=== PATIENT | male | born 1950 | race Caucasian/White ===

== ENCOUNTER 2020-01-31 20:00 | IRF | payer MEDICARE, SELFPAY ==
--- NOTE | ~2020-01-31 | XR_ITS ---
EXAMINATION: XR barium swallow modified EXAM DATE: 02/02/2020 10:07 INDICATION: Dysphagia. TECHNIQUE: Modified barium esophagram was performed by myself to administered fluoroscopy, in conjun ction with speech pathologist who administered barium in varying consistencies as per speech patholog ist documentation. This was recorded on tape. The DAP for this procedure was 1.4 Gycm2. FINDINGS: Oral stage: Adequate function. Pharyngeal phase: Adequate function. Laryngeal penetration: Shallow with liquids, injected. Aspiration: None. Laryngeal sensitivity: Present. IMPRESSION: Patient tolerated oral feedings in the upright position. Please refer to speech patholo gist findings and specific feeding recommendations. Reviewed, dictated and finalized at location A. IMPRESSION: Patient tolerated oral feedings in the upright position. Please r efer to speech pathologist findings and specific feeding recommendations.
--- NOTE | 2020-01-31 20:12 | ADMGEN ---
This patient, Sumit Ross, was admitted to [facility] Room 226-01 at 20:00. Patient/family oriented to hospital policies and general routines including ID bracelet, bed and alarms, visiting hours, pain management, procedures, bathroom and other care routines, personal items, smoking policy, room service/diet, and visiting hours. Valuables list has been completed. Information on how to activate the Rapid Response Team has been discussed. Patient/Family are encouraged to report perceived risks to care and to ask questions if they do not understand what they are told or what they should do.
[2020-01-31 20:44] VITALS: BP 123/70; PULSE 69; RESP 22; TEMP 35.7; O2SAT 98; BMI 34.4
[2020-01-31] MEDS: TAMSULOSIN HCL 0.4 MG CAPSULE 0.8 MG PO (23:00)
[2020-01-31] MEDS: HEPARIN SODIUM 5,000 UNITS/ML VIAL 5000 UNITS SUB-Q (23:00)
[2020-01-31] MEDS: ATORVASTATIN 40 MG TABLET PO (23:00)
[2020-01-31] MEDS: TOLNAFTATE 1% POWDER 45 GM BTL 1 APPLIC TOPICAL (23:50)
[2020-02-01 04:48] LABS: Basophils Absolute Auto 0.1 K/mm3 (0.0-0.1); Basophils Percent Auto 0.4 % (0.2-1.2); Eosinophils Absolute Auto 0.3 K/mm3 (0-0.3); Eosinophils Percent Auto 2.2 % (0-4.4); Hematocrit 35.9 % (42.0-52.0); Immature Granulocyte Absolute 0.11 K/mm3 (0.00-0.031); Immature Granulocyte Percent A 0.9 % (0-0.5); Lymphocytes Absolute Auto 1.56 K/mm3 (0.9-3.2); Lymphocytes Percent Auto 12.5 % (18.3-44.2); Mean Corpuscular HGB Conc 30.6 g/dl (32-36); Mean Corpuscular Hemoglobin 22.2 pg (26-34); Mean Corpuscular Volume 72.5 fl (80-100); Mean Platelet Volume 11.1 fl (7.4-10.4); Monocytes Absolute Auto 1.2 K/mm3 (0.1-0.6); Monocytes Percent Auto 9.8 % (2.6-8.5); Neutrophils Absolute Auto 9.3 K/mm3 (1.3-6.7); Neutrophils Percent Auto 74.2 % (45.5-73.1); Nucleated Red Blood Cells Perc 0.2 % (0.0-0.2); Platelet Count Result 178 k/mm3 (150-375); Red Blood Count 4.95 M/mm3 (4.6-6.20); Red Cell Distribution Width 18.1 % (11.5-14.5); White Blood Count 12.5 K/mm3 (4.5-10.0)
[2020-02-01 05:01] LABS: Anion Gap 11.7 mmol/L (7-16); Blood Urea Nitrogen 13 mg/dL (9-20); Calcium 8.6 mg/dL (8.4-10.2); Carbon Dioxide 27 mmol/L (22-30); Chloride 96 mmol/L (98-107); Cholesterol 121 mg/dL (0-200); Estimated CRCL calculation 113 ml/min; Estimated Glomerular Filt Rate > 60; Glucose 121 mg/dL (75-110); HDL Direct 35 mg/dL; Potassium 3.7 mmol/L (3.4-5.0); Sodium 131 mmol/L (137-145); Triglycerides 131 mg/dL (<150)
[2020-02-01 05:15] LABS: LDL Cholesterol Direct 58 mg/dL
[2020-02-01 05:16] LABS: Hemoglobin A1C 6.4 % (<5.7)
[2020-02-01] MEDS: HEPARIN SODIUM 5,000 UNITS/ML VIAL 5000 UNITS SUB-Q ×3 (05:46→20:33)
[2020-02-01 06:00] VITALS: BP 115/68; PULSE 78; RESP 18; TEMP 36.6; O2SAT 93
[2020-02-01 06:50] LABS: Glucose Point of Care 129 (65-105)
[2020-02-01 08:14] VITALS: BMI 11.0
[2020-02-01] MEDS: FUROSEMIDE 40 MG TABLET PO (09:24)
[2020-02-01] MEDS: LIDOCAINE 5% PATCH 1 PATCH TOPICAL (09:24)
[2020-02-01] MEDS: metFORMIN HCL 500 MG TABLET 1000 MG PO ×2 (09:24→17:15)
[2020-02-01 09:25] VITALS: PULSE 78
[2020-02-01] MEDS: TOLNAFTATE 1% POWDER 45 GM BTL 1 APPLIC TOPICAL ×2 (09:25→20:33)
[2020-02-01] MEDS: METOPROLOL SUCCINATE EXT REL 25 MG TABCR PO (09:25)
[2020-02-01] MEDS: ASPIRIN 81 MG CHEWABLE TABLET PO (09:25)
[2020-02-01 11:54] LABS: Glucose Point of Care 148 (65-105)
[2020-02-01 14:00] VITALS: BP 121/77; PULSE 58; RESP 20; TEMP 36.4; O2SAT 95
--- NOTE | 2020-02-01 14:00 | REHAB_ITS ---
DATE OF SERVICE: 02/01/2020 This 69-year-old right-handed male has been admitted to [facility] Rehab Floor on 01/31/2020. The patient was examined [id number] on 02/01/2020 at 11:30 a.m. PRIMARY REHAB IMPAIRMENT CATEGORY: Stroke. The etiological diagnosis is a large infarct in the right middle cerebral artery territory. HISTORY OF THE PRESENT ILLNESS: A 69 years old, right-handed male with past medical history of: 1. Hypertension. 2. Diabetes mellitus. Presented to [facility] on 01/27/2020 after being found down where the last known well was 01/26/2020 at 6 p.m. He was noted to have right gaze and left-sided weakness. NIHSS was 13. He was out of the window for tPA and did not get mechanical thrombectomy. CTA revealed right M1 cutoff and CTP revealed significant mismatch of around [address] of the head revealed an established large infarct in the right middle cerebral artery's territory. Neurology was consulted. The patient was started on atorvastatin and continued aspirin. Repeat NIHSS was 9. TTE was negative for thrombus and vegetation. Ejection fraction was only 30% to 35%. He was noted to have waxing and waning mental status with NIHSS score up to 24 and back down to 12 the next morning. The repeat CT scan revealed no changes from previous scan. His NIHSS at the time of screening was only 9. He was evaluated by EEG for seizures and exam was normal. He passed the swallowing study and was placed on the heart healthy consistent carbohydrate diet; however, he continued to require a mechanical soft diet with nectar thick liquid consistency. Speech therapy was recommended to improve speech and swallowing function. Physical examination continued to reveal left-sided weakness, right gaze, and decreased safety awareness, impaired balance, dysphagia and decreased gross motor control. The patient was mildly dysarthric. He was discharged to rehab on subcutaneous heparin for DVT prophylaxis. The patient had not traveled outside the [place] or had contact with someone who was ill. He has not traveled outside the [place] in the past 21 days. He has not traveled to an area of the [place] that is experiencing known transmission of the coronavirus, and has not had any close personal contact with anyone that has. He does not have a fever, does not experience any lower respiratory illness symptom. He was tested negative for COVID-19 on 01/28/2020. SURGERY OR FALLS: The patient has had no major surgery in the last 100 days prior to admission. The patient had falls in the past year, has had no fall with injury in the last year. PAST MEDICAL HISTORY: Includes hypertension, diabetes mellitus. PAST SURGICAL HISTORY: Noncontributory. SOCIAL HISTORY: The patient lives independently in a one-level home with 1 step to enter. He was completely independent previously with no assistive device. He is able to stay at his father's house following rehabilitation and his father and sister are available to assist him as needed. No alcohol or drug abuse and no smoker. FAMILY HISTORY: Noncontributory, the detail is not in the file. PRIOR LEVEL OF FUNCTION: He was independent in eating, oral care, toileting hygiene, shower, bathing, upper body, lower body dressing, footwear, rolling left and right, sit to lying, lying to sit, sit to stand, bed to chair transfer, toilet transfer, was independent 999 feet without assistive device. He was previously ambulating independently, was able to complete stairs independently. CURRENT LEVEL OF FUNCTION: Eating is setup or cleanup assistant credit manager. Oral care is partial moderate assistance. Toileting hygiene, partial moderate assistance. Shower bathing partial moderate assistance, upper body is partial moderate assistance. Lower body substantial maximal assi
[2020-02-01 16:59] LABS: Glucose Point of Care 129 (65-105)
[2020-02-01] MEDS: TAMSULOSIN HCL 0.4 MG CAPSULE 0.8 MG PO (20:33)
[2020-02-01] MEDS: ATORVASTATIN 40 MG TABLET PO (20:33)
[2020-02-01] MEDS: ACETAMINOPHEN 500 MG TABLET PO (20:34)
[2020-02-01 21:02] VITALS: BP 147/68; PULSE 53; RESP 20; TEMP 37.1; O2SAT 98
[2020-02-02 05:27] VITALS: BP 124/74; PULSE 75; RESP 20; TEMP 36.2; O2SAT 96
[2020-02-02] MEDS: HEPARIN SODIUM 5,000 UNITS/ML VIAL 5000 UNITS SUB-Q ×3 (05:34→20:07)
[2020-02-02 07:37] LABS: Glucose Point of Care 145 (65-105)
[2020-02-02] MEDS: metFORMIN HCL 500 MG TABLET 1000 MG PO ×2 (09:14→17:52)
[2020-02-02 09:15] VITALS: PULSE 75
[2020-02-02] MEDS: METOPROLOL SUCCINATE EXT REL 25 MG TABCR PO (09:15)
[2020-02-02] MEDS: LIDOCAINE 5% PATCH 1 PATCH TOPICAL (09:15)
[2020-02-02] MEDS: ASPIRIN 81 MG CHEWABLE TABLET PO (09:15)
[2020-02-02] MEDS: FUROSEMIDE 40 MG TABLET PO (09:15)
[2020-02-02] MEDS: TOLNAFTATE 1% POWDER 45 GM BTL 1 APPLIC TOPICAL ×2 (09:15→20:07)
--- NOTE | 2020-02-02 11:45 | PCOTNOTE ---
Patient completed tabletop visual scanning activity with multicolored blocks with occasional verbal cues to scan left and locate correct color (red vs. orange) x3 trials
[2020-02-02 12:00] LABS: Glucose Point of Care 148 (65-105)
[2020-02-02 14:00] VITALS: BP 122/66; PULSE 79; RESP 16; TEMP 36.2; O2SAT 98
[2020-02-02 16:55] LABS: Glucose Point of Care 123 (65-105)
[2020-02-02] MEDS: ACETAMINOPHEN 500 MG TABLET PO (17:55)
[2020-02-02] MEDS: TAMSULOSIN HCL 0.4 MG CAPSULE 0.8 MG PO (20:06)
[2020-02-02] MEDS: ATORVASTATIN 40 MG TABLET PO (20:06)
[2020-02-02 20:12] VITALS: BP 134/65; PULSE 69; RESP 18; TEMP 36.4; O2SAT 98
[2020-02-03] MEDS: HEPARIN SODIUM 5,000 UNITS/ML VIAL 5000 UNITS SUB-Q ×2 (05:43→13:30)
[2020-02-03 06:00] VITALS: BP 124/70; PULSE 57; RESP 20; TEMP 36.4; O2SAT 99
[2020-02-03 06:13] LABS: Glucose Point of Care 140 (65-105)
[2020-02-03 07:00] VITALS: BP 71/37; PULSE 130; RESP 30; O2SAT 100
[2020-02-03 08:27] VITALS: PULSE 69
[2020-02-03] MEDS: METOPROLOL SUCCINATE EXT REL 25 MG TABCR PO (08:27)
[2020-02-03] MEDS: ASPIRIN 81 MG CHEWABLE TABLET PO (08:27)
[2020-02-03] MEDS: metFORMIN HCL 500 MG TABLET 1000 MG PO (08:27)
[2020-02-03] MEDS: LIDOCAINE 5% PATCH 1 PATCH TOPICAL (08:27)
[2020-02-03] MEDS: FUROSEMIDE 40 MG TABLET PO (08:27)
[2020-02-03] MEDS: TOLNAFTATE 1% POWDER 45 GM BTL 1 APPLIC TOPICAL (08:29)
--- NOTE | 2020-02-03 10:23 | RPD ---
INDIVIDUALIZED PLAN OF CARE FOR Sumit Ross Brief Synthesis of Pre-Admission Screen, Post-Admission Evaluation and Therapy Evaluations: The patient presents to rehab with large infarct in the right MCA territory. Comorbidities include hypertension, diabetes mellitus type 2, heart failure with reduced ejection fraction, dysarthria, left-sided weakness, leukocytosis, and right putamen bleed. The patient?s needs will be best met in an intensive program vs. at a lower level of care. The patient requires physician services for neurology services, medical oversight, and coordination of care. The patient needs physician monitoring and treatment of hypertension, monitoring for adverse reactions to new medications, monitoring of infection, and pain control. The patient requires nursing services for frequent neuro checks, anticoagulation therapy, medication management and education, pressure relief and skin care management, monitoring of labs, bowel and bladder training, diabetes management and education, and fall/safety precautions. Deficits include:ADLs, Balance, Endurance, Family Training/Education, Mobility, Pain Management, ROM, Safety, Speech, Strength, Swallowing, and Transfers. Program Admin/Case Management for: Discharge Planning and Patient/Family Counseling Physical Therapy: 5 days per week for 60 minutes. Treatments may include: Therapeutic Exercise, Gait Training, Neuromuscular Re-education, Transfer Training, Community Reintegration, Bed Mobility, Patient/Family Education, Wheelchair Mobility Group Therapy/Concurrent Therapy Rationales: -Improve attention span during functional activities in a distracted environment. -Enhance problem solving and/or adequate judgment skills during functional activities in a distracted environment. -Promote increased safety awareness in a distracted environment to reduce fall risk with functional tasks, transfers, and ambulation to allow a more safe, self-sufficient return to the home environment. -Improve dynamic balance skills to promote safety and independence with functional activities in a distracted environment for maximum gain. Occupational Therapy: 5 days per week for 60 minutes. Treatments may include: Therapeutic Exercise, Therapeutic Activity, Cognitive Training, Self-Care Transfer Training, Community Reintegration, Home Management, Patient/Family Education, Wheelchair Mobility Training, Energy Conservation Training Group Therapy/Concurrent Therapy Rationales: -Allow therapist to observe and teach generalization and carry-over of skills learned in individual therapy. -Enhance problem solving and sequencing skills during therapeutic activities in a distracted environment. -Promote increased safety awareness in a realistic setting to reduce fall risk with functional tasks due to visual and verbal distractions. -Increase functional level with ADLs, ADL transfers and use of adaptive equipment through therapeutic activities with others while promoting safety to allow a more safe, self-sufficient return home. Speech Therapy: 5 days per week for 60 minutes. Treatments may include: Dysphasia Therapy, Speech/Language/Communication Therapy, Cognitive Training, Patient/Family Education Group Therapy/Concurrent Therapy - Rationale: -Allow therapist to observe and teach generalization and carry-over of skills learned in individual therapy. -Improve comprehension skills with complex or abstract ideas through discussion in a realistic setting. -Enhance problem solving skills with complex issues during activities in a distracted environment. -Promote increased memory skills and concentration in a distracted environment for a safe transition home. -Improve attention and focus with language/communication skills in a realistic and supportive therapeutic setting. -Allow for practice of expression of basic needs and ideas through functional activities with others. Medical Prognosis: Good Anticipated Length of Stay: 14 days Rehab Go
[2020-02-03] MEDS: ACETAMINOPHEN 500 MG TABLET PO (11:31)
[2020-02-03 11:51] LABS: Glucose Point of Care 134 (65-105)
--- NOTE | 2020-02-03 12:12 | WPDNEURORHBP ---
Subjective Date/time seen: 0 seen on 02/02/20 documentin today Review of Systems Review of Systems: All systems reviewed & are unremarkable except as noted in HPI and below Functional Status Ambulation Ability Ability to Ambulate 10 Feet: Moderate Assistance X 1 Ambulation Assistive Devices: Cane, Ever and Parallel Bars Exam Const: General: cooperative, healthy appearing, comfortable and no acute distress Nutritional Appearance: obese Orientation/consciousness: oriented to person, oriented to place, oriented to time and patient oriented x3 Eyes: General: appearance normal, both eyes and all related structures Eyelids: eyelids normal Conjunctivae: conjunctivae normal Sclera: sclerae normal Cornea: corneas normal Pupils: Equal, round and reactive pupils present EOM: EOM abnormal Direct Ophthalmoscopy: normal light reflex Neck: Neck: full ROM and no lymphadenopathy Resp: Effort & Inspection: able to speak in complete sentences Cardio: Rate: regular rate GI: Auscultation: normal bowel sounds Back/Spine/Pelvis: Back: no CVA tenderness Skin: General skin exam: no rashes or lesions noted Neuro: General: patient oriented x3 and moves all extremities Cranial nerves: Yes Equal, round and reactive pupils present, Yes Bilaterally intact EOM present, Yes Nystagmus not present, Yes Symmetric palate elevation present, Yes Normal hearing present, Yes Ability to bilaterally rotate head present and Yes Ability to bilaterally elevate shoulders present Cognition (Neuro): normal cognition Speech: normal speech Gait exam (Neuro): Assisted gait required Motor exam (neuro): Abnormal motor strength present (left hemiparesis) Sensory Exam: Sensory deficit (Neuro) Extrem: General: full ROM Psych: Appearance: grossly normal Objective Data Vital Signs Vital Signs: Vital Signs - 24 hr 02/02/20 14:00 02/02/20 20:12 02/03/20 06:00 Temperature 36.2 C L 36.4 C 36.4 C Pulse Rate 79 69 57 L Respiratory Rate 16 18 20 Blood Pressure 122/66 134/65 124/70 Pulse Oximetry 98 98 99 02/03/20 08:27 Temperature Pulse Rate 69 Respiratory Rate Blood Pressure Pulse Oximetry Intake/Output Intake/Output: Intake & Output 01/31/20 02/01/20 02/02/20 02/03/20 23:59 23:59 23:59 23:59 Intake Total 600 720 240 Balance 600 720 240 Meds/Results Medications: Active Medications Generic Name Dose Route Start Last Admin Trade Name Freq PRN Reason Stop Dose Admin Acetaminophen 500 mg 01/31/20 21:38 02/03/20 11:31 Tylenol Tablet PO 500 mg Q4H PRN Administration Mild Pain (1-3) or Fever Aspirin 81 mg 02/01/20 09:00 02/03/20 08:27 Aspirin Chewable PO 81 mg DAILY NADYA Administration Atorvastatin Calcium 40 mg 01/31/20 21:00 02/02/20 20:06 Lipitor PO 40 mg HS NADYA Administration Dextrose 12.5 gm 01/31/20 21:20 Dextrose 50% Syringe IV PUSH PRN PRN Hypoglycemia Protocol Furosemide 40 mg 02/01/20 09:00 02/03/20 08:27 Lasix Tablet PO 40 mg DAILY NADYA Administration Glucagon 1 mg 01/31/20 21:20 Glucagon For Inj IM PRN PRN Hypoglycemia Protocol Glucose 15 gm 01/31/20 21:20 Glutose 15 PO PRN PRN Hypoglycemia Protocol Heparin Sodium (Porcine) 5,000 units 01/31/20 22:00 02/03/20 05:43 Heparin Sodium SUB-Q 5,000 units Q8HR NADYA Administration Dextrose 1,000 mls @ 100 mls/hr 01/31/20 21:20 Dextrose 5% 1,000 Ml IVPB PRN PRN Hypoglycemia Protocol Insulin Aspart 4 - 8 units 02/01/20 08:00 02/03/20 11:35 Novolog SUB-Q Not Given TIDWM NADYA Protocol Lidocaine 1 patch 02/01/20 09:00 02/03/20 08:27 Lidoderm TOPICAL 1 patch DAILY NADYA Administration Metformin HCl 1,000 mg 02/01/20 08:00 02/03/20 08:27 Glucophage PO 1,000 mg BIDWM NADYA Administration Metoprolol Succinate 25 mg 02/01/20 09:00 02/03/20 08:27 Toprol Xl PO 25 mg DAILY NADYA Administration
[2020-02-03 14:00] VITALS: BP 139/80; PULSE 92; RESP 20; TEMP 35.9; O2SAT 97
--- NOTE | 2020-02-03 15:21 | PCNSR ---
On 02/03/20, the student,Charles Carlos, provided care and completed [facility] [employer] [facility] documentation on this patient. I have reviewed the student's documentation and agree with the findings.
--- NOTE | 2020-02-03 16:48 | ECG_ITS ---
Measurements Intervals [place] Rate: 129 P: AL: 0 QRS: -24 QRSD: 95 T: 97 QT: 322 QTc: 472 Interpretive Statements ATRIAL FIBRILLATION WITH RAPID VENTRICULAR RESPONSE VENTRICULAR PREMATURE COMPLEXES INCOMPLETE RIGHT BUNDLE BRANCH BLOCK DELAYED PRECORDIAL R/S TRANSITION NONSPECIFIC ST & T-WAVE ABNORMALITY- HIGH LATERAL LEADS BASELINE WANDER- AVL, V4-V6 ABNORMAL ECG Electronically Signed On 02-03-2020 17:19:02 CDT by Juan Luis Merino D.O.
[2020-02-03 17:04] LABS: Glucose Point of Care 237 (65-105)
--- NOTE | 2020-02-03 17:28 | PC.NURSE ---
At 1700, pt began c/o SOB, mid sternal chest pain, B/P 78/60 (manual) P78 irregular 95% O2.Rapid Response was called, team arrived to unit, EKG was done-pt with A-FIB/ RVR Rec'd order from Dr. Huang for transfer to ICU, taken to icu unit at 1715
--- NOTE | 2020-02-18 11:58 | PM.TDS ---
Transfer Discharge Sum: Prov Provider Date of admission: 01/31/20 20:00 Primary care physician: Bryan Barboza, DO Admitting clinician: Levar Huang MD DS: Admitting Diagnosis Admitting Diagnosis Admitting Diagnosis: CVA RIGHT MCA DS: Discharge Diagnosis Discharge Diagnosis (1) Diarrhea: Code(s): R19.7 - Diarrhea, unspecified Status: Acute (2) Elevated white blood cell count: Code(s): D72.829 - Elevated white blood cell count, unspecified Status: Acute (3) PVCs (premature ventricular contractions): Code(s): I49.3 - Ventricular premature depolarization Status: Acute (4) Left hemiparesis: Code(s): G81.94 - Hemiplegia, unspecified affecting left nondominant side Status: Acute (5) Elevated LFTs: Code(s): R79.89 - Other specified abnormal findings of blood chemistry Status: Acute (6) Ischemic optic neuropathy: Code(s): H47.019 - Ischemic optic neuropathy, unspecified eye Status: Acute (7) Atrial fibrillation with RVR: Code(s): I48.91 - Unspecified atrial fibrillation Status: Resolved (8) Atrial fibrillation: Code(s): I48.91 - Unspecified atrial fibrillation Status: Acute (9) BPH (benign prostatic hyperplasia): Code(s): N40.0 - Benign prostatic hyperplasia without lower urinary tract symptoms Status: Chronic (10) Systolic congestive heart failure: Code(s): I50.20 - Unspecified systolic (congestive) heart failure Status: Chronic (11) Hyperlipidemia: Code(s): E78.5 - Hyperlipidemia, unspecified Status: Chronic (12) Cerebrovascular accident (CVA) involving right cerebral hemisphere: Code(s): I63.9 - Cerebral infarction, unspecified Status: Chronic (13) Diabetes mellitus: Code(s): E11.9 - Type 2 diabetes mellitus without complications Status: Chronic (14) Hypertension: Code(s): I10 - Essential (primary) hypertension Status: Chronic Transfer Discharge Sum: Med Medications Active and Home Medications: Home Medications atorvastatin 40 mg PO HS 01/31/20 [History Confirmed 02/03/20] furosemide 40 mg PO DAILY 01/31/20 [History Confirmed 02/03/20] tamsulosin 0.8 mg PO HS 01/31/20 [History Confirmed 02/03/20] amiodarone [Pacerone] 200 mg PO DAILY@0800 #30 tablet 02/10/20 [Rx] apixaban [Eliquis] 5 mg PO Q12HR #60 tablet 02/10/20 [Rx] lisinopril 5 mg PO QAM #30 tablet 02/10/20 [Rx] metoprolol tartrate 50 mg PO Q12HR #60 tablet 02/10/20 [Rx] potassium chloride 20 meq PO DIRECTED #32 each 02/10/20 [Rx] alprazolam 0.25 mg PO HS PRN #30 tablet 02/12/20 [Rx] loperamide [Imodium A-D] 2 mg PO Q6H PRN #10 cap 02/12/20 [Rx] metformin 1,000 mg PO BID #60 tablet 02/12/20 [Rx Confirmed 02/03/20] tamsulosin 0.8 mg PO HS #60 cap 02/12/20 [Rx] Transfer Discharge Sum: Hosp Hospital Course Hospital course: Sumit Ross is a 69 year old male Who was admitted to the acute rehab after having had the CVA with the above-mentioned comorbidities however because of change in his cardiovascular status and particularly atrial fibrillation with rapid ventricular response he had to be transferred to the intensive care unit Time Spent with Patient Time attestation: Total time spent providing and/or coordinating transfer services: Exam Const: General: comfortable and no acute distress HENMT: General nose exam: Normal nares present Mouth: Yes moist mucous membranes Eyes: General: appearance normal, both eyes and all related structures Neck: Neck: supple and no JVD Resp: Other: decreased breath sounds bilateral Cardio: Other: atrial fibrillation with rapid ventricular response GI: GI Palp: Yes Soft to palpation Auscultation: normal bowel sounds Skin: General skin exam: normal color and no rashes or lesions noted Neuro: Other: relatively fatigued entire with left-sided hemiparesis Extrem: General: normal to inspection Psych: Mental Statu
== END 2020-02-03 17:00 | disposition short-term general hospital (02) | DRG 57 ==
PROVIDERS: Admitting Provider Psychiatry & Neurology Neurology; PCP Family Medicine; Visit Provider Psychiatry & Neurology Neurology
DX: I69.354 Hemiplegia and hemiparesis following cerebral infarction affecting left non-dominant side (principal); I50.20 Unspecified systolic (congestive) heart failure; I48.91 Unspecified atrial fibrillation; R13.10 Dysphagia, unspecified; I69.391 Dysphagia following cerebral infarction; I69.322 Dysarthria following cerebral infarction; I69.398 Other sequelae of cerebral infarction; H51.8 Other specified disorders of binocular movement; H47.019 Ischemic optic neuropathy, unspecified eye; D72.829 Elevated white blood cell count, unspecified; E78.5 Hyperlipidemia, unspecified; E11.9 Type 2 diabetes mellitus without complications; I49.3 Ventricular premature depolarization; I11.0 Hypertensive heart disease with heart failure; N40.0 Benign prostatic hyperplasia without lower urinary tract symptoms; R19.7 Diarrhea, unspecified; R79.89 Other specified abnormal findings of blood chemistry; Z79.82 Long term (current) use of aspirin; Z79.84 Long term (current) use of oral hypoglycemic drugs
CPT/HCPCS: 36415; 80048; 80061; 83036; 85025; 92507; 92523; 92610; 92611; 93005; 97110; 97116; 97162; 97166; 97530; 97535; 97542; A9270; J1644

== ENCOUNTER 2020-02-03 17:01 | Inpatient (IN) | payer MEDICARE, SELFPAY ==
[2020-02-03] VITALS (9 sets, daily range): BP systolic 101–135; BP diastolic 69–109; PULSE 124–147; RESP 24–32; TEMP 36.9; O2SAT 96–100; BMI 34.0
--- NOTE | ~2020-02-03 | CT_ITS ---
EXAMINATION: CTA brain EXAM DATE: 02/03/2020 18:57 INDICATION: Recent stroke. Atrial fibrillation. TECHNIQUE: Noncontrast head CT. Spiral CT angiogram cerebral arteries performed with intravenous in jection of 100 mL Omnipaque 350. Axial, coronal and sagittal images reviewed. Additional reformatted images created on dedicated 3-D workstation. The dose-length product (DLP) for this examination was 1229.12 mGy-cm. The exposure was tailored according to patient size, and iterative reconstruction (ASIR) was used as additional dose reduction technique. There is no prior study for comparison. FINDINGS: The carotid siphons are normal bilaterally, no proximal stenosis. Symmetric bilateral but diminutive vertebral arteries, with bilateral posterior communicating artery dominant posterior cereb ral arteries. There is no distal carotid or vertebral basilar arterial dissection or fibromuscular d ysplasia. There are no cerebral artery aneurysms. There is symmetric cerebral artery arborization. Th e sagittal, transverse and sigmoid sinuses enhance normally, no venous sinus thrombosis. Internal cer ebral veins also enhance normally. Moderate-sized region of decreased attenuation within the right temporal lobe, could be subacute infa rction correlating with history provided. There is mild atrophy and microangiopathy. There is no acut e intraparenchymal hemorrhage. No evidence of intraparenchymal brain mass lesion There is no mass ef fect or midline shift. There is no obstructive hydrocephalus suspected. There are no extra-axial col lections. There are no calvarial acute fractures. There are no areas of abnormal enhancement on the post contrast images. IMPRESSION: 1. Right temporal hypodensity likely moderate-sized subacute infarction. 2. Mild age-related intracranial findings. 3. Unremarkable intracranial arteries. Reviewed, dictated and finalized at location A.
--- NOTE | ~2020-02-03 | XR_ITS ---
EXAMINATION: XR chest 2V EXAM DATE: 02/03/2020 19:06 INDICATION: Shortness of breath. Unable to lift left arm. TECHNIQUE: Frontal AP and lateral projections of the chest obtained and reviewed. Lateral projection limited due to patient's arms overlying chest. There is no prior study for comparison. FINDINGS: The lungs are clear. There are no pleural effusions. Cardiomediastinal silhouette is norm al. There is no pneumothorax suspected. The bones and soft tissues are unremarkable. IMPRESSION: No acute cardiopulmonary findings. Reviewed, dictated and finalized at location A.
--- NOTE | ~2020-02-03 | XR_ITS ---
EXAMINATION: XR chest 2V DATE: 02/11/2020 13:10 INDICATION: Leukocytosis. Atrial fibrillation. TECHNIQUE: Frontal and lateral views of the chest were obtained. COMPARISON: Chest 2 views 02/03/2020 FINDINGS: The chest demonstrates clear lungs without pneumonia, pleural effusion, or pneumothorax. Th e heart size is normal. IMPRESSION: 1. No acute cardiopulmonary disease. Reviewed, dictated and finalized at location B.
--- NOTE | ~2020-02-03 | US_ITS ---
EXAMINATION: US right upper quadrant DATE: 02/04/2020 09:06 INDICATION: Elevated liver function tests TECHNIQUE: Multiple grayscale and Doppler ultrasound images of the abdomen were obtained. COMPARISON: None available FINDINGS: The head and and body of the pancreas are normal. The pancreatic tail is obscured by bowel gas. The liver is normal with normal echogenicity and echotexture. No surface nodularity. Normal hepa topetal flow in the main portal vein. The gallbladder is surgically absent. The normal common bile du ct measures 3 mm. IMPRESSION: 1. No sonographic correlate for the patient's symptoms. Reviewed, dictated and finalized at location A.
--- NOTE | 2020-02-03 18:08 | ADMGEN ---
This patient, Sumit Ross, was admitted to Intensive Care Unit-8 from [facility] room 226 as a rapid response. Patient/family oriented to hospital policies and general routines including ID bracelet, bed and alarms, visiting hours, pain management, procedures, bathroom and other care routines, personal items, smoking policy, room service/diet, and visiting hours. Valuables list has been completed. Information on how to activate the Rapid Response Team has been discussed. Patient/Family are encouraged to report perceived risks to care and to ask questions if they do not understand what they are told or what they should do.
--- NOTE | 2020-02-03 19:28 | PM.IMHP ---
H&P: HPI History of Present Illness Date/Time: 02/03/20 19:28 Chief complaint: AFib with RVR Narrative: Sumit Ross is a 69 year old male who was a patient at [facility]. This is a right handed male patient was admitted to [facility] rehab floor on 01/31/2020. The patient presented to [facility] on 01/27/2020 you was found to be down his last known normal was 01/26/2020 at 6:00 p.m.. The patient was noted to have a right gaze in the left-sided weakness. He also has a left facial droop. He was out of the window for tPA and did not get any mechanical thrombectomy. CTA revealed a right M1 cutoff and CT P revealed significant mismatch of around [address] of the head revealed and establish large right infarct of the right middle cerebral arteries to territory. Neurology was consulted. The patient was started on atorvastatin and aspirin. Patient had a NEY within the EF of 30-35%. Patient has a mild facial droop with some mild speech impediment. Patient required a mechanical soft diet with nectar thick liquid consistency. He did pass his swallow study. He was evaluated by EEG for seizures and it was normal. Speech therapy was recommended to improve speech and swallow function. Patient was discharged from [facility] on subcu heparin for DVT prophylaxis. Patient tested negative for covid 19 on 01/28/2020. Today a rapid response was called on the patient in an EKG was obtained the patient was found to be in AFib RVR which is new. I did consult Cardiology and started the patient on a Cardizem drip. On 02/01 I saw the modified barium swallow results as patient tolerate oral feedings in the upright position. His blood sugar was noted to be 237 this afternoon. The patient was transferred to ICU after I was asked to consult on the patient after a rapid response. EKG was read as AFib with rapid ventricular response heart rate in the 130s. The hoist worker was notified by the rapid response team and the patient was placed in ICU. Total time was approximately 60 minutes in ICU with the patient. Date of service is 02/02 Review of Systems Review of Systems: All systems reviewed & are unremarkable except as noted in HPI and below Constitutional: Constitutional: Reports as per HPI and Reports no additional constitutional complaints Eyes: Eyes: Reports as per HPI and Reports no additional eye complaints ENT: Reports system reviewed and no additional complaints, except as documented and Reports Normal hearing present Cardiovascular: Cardiovascular: Reports no additional cardiovascular complaints Respiratory: Respiratory: Reports no additional respiratory complaints and Reports no additional respiratory complaints Gastrointestinal: Gastrointestinal: Reports as per HPI and Reports no additional gastrointestinal complaints Musculoskeletal: Musculoskeletal: Reports no additional musculoskeletal complaints Integumentary/Breasts: Skin/Breast: Reports system reviewed and no additional complaints, except as docu and Reports as per HPI Neurologic: Reports system reviewed and no additional complaints, except as documented, Reports as per HPI and Reports Normal hearing present Psychiatric: Psychiatric: Reports no additional psychiatric complaints and Reports as per HPI Endocrine: Endocrine: Reports no additional endocrine complaints Hematologic/Lymphatic: Hematologic/Lymphatic: Reports no additional hematologic/lymphatic complaints Allergic/Immunologic: Allergic/Immunologic: Reports no additional allergic/immunologic complaints PMFSH Past Medical History Medical History (Updated 02/03/20 @ 19:55 by Rossy Jerome NP) BPH (benign prostatic hyperplasia) Cerebrovascular accident (CVA) involving right cerebral hemisphere Diabetes mellitus Hyperlipidemia Hypertension Systolic congestive heart failure last EF 30-35%. Surgical History Surgical History (Updated 02/03/20 @ 19:44 by Rossy Jerome NP) H/O eye potts
[2020-02-03 20:01] LABS: Hemoglobin A1C 6.4 % (<5.7)
[2020-02-03 20:05] LABS: Anion Gap 15.9 mmol/L (7-16); Blood Urea Nitrogen 16 mg/dL (9-20); Calcium 8.6 mg/dL (8.4-10.2); Carbon Dioxide 25 mmol/L (22-30); Chloride 92 mmol/L (98-107); Estimated CRCL calculation 89 ml/min; Estimated Glomerular Filt Rate > 60; Glucose 177 mg/dL (75-110); Lactic Acid Reflex 3.4 mmol/L (0.7-2.1); Potassium 3.9 mmol/L (3.4-5.0); Sodium 129 mmol/L (137-145)
[2020-02-03 20:31] LABS: Troponin I 0.105 ng/mL (0.000-0.034)
[2020-02-03 20:45] LABS: Free T4 Free Thyroxine 1.47 ng/mL (0.78-2.19)
[2020-02-03 20:57] LABS: Add Urine Microscopic? YES; Appearance Urine Clear (Clear); Bacteria Urine Trace /hpf; Bilirubin Urine Negative (Negative); Blood Urine Negative (Negative); Color Urine Yellow (Yellow); Glucose Urine UA Negative (Negative); Ketones Urine Negative (Negative); Leukocyte Esterase Ur Negative LEU/UL (Negative); Mucus Urine Rare /lpf; Nitrate Urine Negative (Negative); Protein Urine 2+ mg/dL (Negative); Squamous Epithelial Cell Urine Occasional /hpf (Few); WBC Urine 0-3 /hpf
[2020-02-03 21:13] LABS: Specific Grav Ur 1.043 (1.001-1.035)
[2020-02-03] MEDS: ATORVASTATIN 40 MG TABLET PO (21:53)
[2020-02-03] MEDS: TAMSULOSIN HCL 0.4 MG CAPSULE 0.8 MG PO (21:53)
[2020-02-03] MEDS: HEPARIN SODIUM 5,000 UNITS/ML VIAL 5000 UNITS SUB-Q (21:53)
[2020-02-03 22:51] LABS: Reflex Lactic Acid Yes or No Add Lactic
[2020-02-03 23:29] LABS: Lactic Acid 2.6 mmol/L (0.7-2.1)
[2020-02-03 23:45] LABS: Troponin I 0.392 ng/mL (0.000-0.034)
[2020-02-04] VITALS (25 sets, daily range): BP systolic 102–145; BP diastolic 62–116; PULSE 91–142; RESP 16–32; TEMP 36.5–36.8; O2SAT 93–98; BMI 10.0
--- NOTE | 2020-02-04 | ECHO_ITS ---
Patient Info Name: Sumit Ross Age: 69 years : 1950 Gender: Male Ht: 72 in Wt: 248 lbs BSA: 2.43 m2 HR: 111 bpm BP: 103 / 75 mmHg Technical Quality: Good Exam Date: 02/04/2020 10:56 AM Exam Location: [facility] Pulmonary Patient Status: Inpatient Admit Date: 02/03/2020 Staff Ordering Physician: Eulogio Link MD Organic Chemistry Teacher: Basil Bautista, SHAMIKACS, RT Attending Provider: Swathi Tejeda MD Exam Type: CA echo dop color flow w con Study Info Indications I50.9 - Heart failure, unspecified Complete two-dimensional, color flow and Doppler transthoracic echocardiogram is performed with contrast to opacify the left ventricle and to improve the deliniation of the left ventricle endocardial borders. Summary 1. Normal LV size, borderline LVH; moderate LV systolic dysfunction with ejection fraction about 35%; with variable contractility due to atrial fibrillation. [id number]-[id number] RV enlargement with hypokinesis. Mild left atrial enlargement. Mild mitral annular calcification, trivial MR. Aortic valve not well visualized, mild aortic stenosis, valve area 1.9 cm2, trivial aortic regurgitation. Mild TR, severe pulmonary hypertension, RVSP 64 mmHg. Atrial fibrillation. Left Ventricle Left ventricular chamber dimension is normal. Left ventricular systolic function is moderately reduced, estimated at 30-35%. There is no increased left ventricular wall thickness. Left ventricular septal wall motion is normal. The left ventricular diastolic function is normal. Right Ventricle Right ventricular chamber dimension is moderately enlarged. Right ventricular systolic function is reduced. Left Atria Left atrial chamber dimension is mildly enlarged. Right Atria Right atrial chamber dimension is mildly enlarged. Aortic Valve The aortic valve is not well visualized. There is mild aortic valve sclerosis. There is trace aortic valve regurgitation. Pulmonic Valve The pulmonic valve is not well visualized. There is mild pulmonic regurgitation. Mitral Valve There is trace mitral valve regurgitation. The mitral valve annulus is mildly calcified. Tricuspid Valve The tricuspid valve leaflets are normal. There is mild tricuspid valve regurgitation. Severe pulmonary hypertension, estimated pulmonary arterial systolic pressure is 64 mmHg. Pericardium/Pleural The pericardium appears normal. There is no pericardial effusion. Inferior Vena Cava Normal inferior vena cava with >50% collapse upon inspiration consistent with elevated right atrial pressure, 15 mmHg. Aorta The aortic root size at the sinus of Valsalva is normal. The prox ascending aorta size is normal. Left Ventricular Outflow Tract Name Value Normal LVOT 2D LVOT Diameter 1.87 cm LVOT Doppler LVOT Peak Gradient 4 mmHg LVOT Mean Gradient 2 mmHg LVOT VTI 12.63 cm LVOT VTI/AV VTI Ratio 0.63 LVOT Stroke Volume 34.74 ml LVOT CO 2.36 l/min LVOT CI 0.97
[2020-02-04] MEDS: DIGOXIN INJ 250 MCG/ML 2 ML AMP (*BKC) 500 MCG IV PUSH (00:59)
[2020-02-04 03:24] LABS: Troponin I 0.423 ng/mL (0.000-0.034)
[2020-02-04 04:36] LABS: Alveolar/Arterial O2 Gradient 85.4 mmHg; Base Excess ABG 0.3 mEq/l (+/-2.0); Fractional Inspired Oxygen 26 %; HCO3 ABG 22.4 mEq/l (22.0-26.0); Oxygen Content ABG 15.4 %vol (16.0-22.0); PCO2 ABG 28.8 mmHg (35.0-45.0); PO2 ABG 65.9 mmHg (80.0-100.0); PO2 FiO2 Ratio Arterial Blood 2.53 %; Total Hemoglobin 11.9 g/dL (12.0-18.0); pH ABG 7.509 (7.350-7.450)
[2020-02-04 04:37] LABS: Device NASAL CANNULA; Modified Allen's Test Pass; Site Drawn RIGHT RADIAL
[2020-02-04 04:38] LABS: Liters per Minute 1.5 LPM
[2020-02-04 06:25] LABS: Basophils Percent Auto 0.3 % (0.2-1.2); Eosinophils Absolute Auto 0.1 K/mm3 (0-0.3); Eosinophils Percent Auto 0.8 % (0-4.4); Immature Granulocyte Absolute 0.14 K/mm3 (0.00-0.031); Lymphocytes Absolute Auto 1.01 K/mm3 (0.9-3.2); Lymphocytes Percent Auto 6.9 % (18.3-44.2); Mean Corpuscular HGB Conc 30.6 g/dl (32-36); Mean Platelet Volume 10.7 fl (7.4-10.4); Monocytes Absolute Auto 1.2 K/mm3 (0.1-0.6); Monocytes Percent Auto 8.1 % (2.6-8.5); Neutrophils Absolute Auto 12.1 K/mm3 (1.3-6.7); Neutrophils Percent Auto 82.9 % (45.5-73.1); Nucleated Red Blood Cells Perc 0.1 % (0.0-0.2); Platelet Count Result 190 k/mm3 (150-375); White Blood Count 14.6 K/mm3 (4.5-10.0)
[2020-02-04 06:34] LABS: Alanine Aminotransferase 255 U/L (4-50); Albumin Level 3.6 g/dL (3.5-5.1); Alkaline Phosphatase 170 U/L (38-126); Anion Gap 13.8 mmol/L (7-16); Aspartate Amino Transferase 176 U/L (17-59); Bilirubin,Total 1.2 mg/dL (0.2-1.3); Blood Urea Nitrogen 16 mg/dL (9-20); Calcium 8.6 mg/dL (8.4-10.2); Carbon Dioxide 24 mmol/L (22-30); Chloride 96 mmol/L (98-107); Estimated CRCL calculation 112 ml/min; Estimated Glomerular Filt Rate > 60; Glucose 147 mg/dL (75-110); Lipase 286 U/L (23-300); Potassium 3.8 mmol/L (3.4-5.0); Sodium 130 mmol/L (137-145)
[2020-02-04] MEDS: HEPARIN SODIUM 5,000 UNITS/ML VIAL 5000 UNITS SUB-Q (06:43)
--- NOTE | 2020-02-04 08:24 | PM.CNCAR ---
Assessment and Plan Assessment and plan (1) Atrial fibrillation with RVR: Code(s): I48.91 - Unspecified atrial fibrillation Status: Acute Assessment and Plan: 69-year-old male with past medical history of hypertension, type 2 diabetes mellitus, dyslipidemia, BPH. Patient recently admitted to [facility] on 01/27/2020 with acute CVA. He was later transferred to [facility] rehab, where patient was found to be in atrial fibrillation with RVR. It is uncertain if patient was in atrial fibrillation at outside hospital. He gives history of atrial fibrillation for last 6-7 years, however has not been on chronic anticoagulation as an outpatient for unknown reasons. - At present, patient remains in atrial fibrillation with RVR despite being on maximum dose of IV diltiazem, and having received IV Digoxin. Due to patient's LV dysfunction, we will taper of IV diltiazem, and initiate IV esmolol for better rate control. Continue to monitor on telemetry. - Patient needs to be on anticoagulation, preferably with 1 of the direct oral anticoagulants like apixaban or rivaroxaban. If okay with Neurology, would initiate on 1 of these medications as soon as safe from a neurological standpoint. (2) Systolic congestive heart failure: Code(s): I50.20 - Unspecified systolic (congestive) heart failure Status: Chronic Assessment and Plan: Recent NEY from outside hospital reported show LVEF 30-35%. Nilam IV beta-bette with oral metoprolol. Add ACEI, ARB or ARNI in 1-2 days. At this time, would leave room for AV kate blocking agents for rate control. Surface echocardiogram with Doppler to assess LV function and rule out any major structural heart disease. (3) Cerebrovascular accident (CVA) involving right cerebral hemisphere: Code(s): I63.9 - Cerebral infarction, unspecified Status: Chronic Assessment and Plan: Management as per primary team, Neurology anticoagulation statin rehab PT OT speech evaluation (4) Diabetes mellitus: Code(s): E11.9 - Type 2 diabetes mellitus without complications Status: Chronic Assessment and Plan: optimal blood sugar control History of Present Illness History of Present Illness Consult date/time: 02/04/20 08:24 Date of consult: 02/04/2020 reason for consult: Atrial fibrillation with RVR requesting physician:LEONARD Johnson Chief complaint: Weakness HPI: 69-year-old male with past medical history of hypertension, type 2 diabetes mellitus, dyslipidemia, BPH. Patient was recently admitted to [facility] on 01/27/2020 with left-sided weakness and facial droop. He was found to have CVA, and apparently did not receive tPA or thrombectomy as he was out side the window for such therapy. He was initiated on aspirin and statin. Based on the review of the notes, his NEY was reported to show LV dysfunction with EF 30 -35%, and apparently did not show any thrombus or vegetation. COVID-19 PCR was negative. He Was transferred to [facility] Rehab. Yesterday, patient was transferred to ICU after he was found to be in atrial fibrillation with RVR. On evaluation today, patient states that he was diagnosed with atrial fibrillation about 6-7 years ago. He states that he used to follow up with a goldsmith apprentice in [facility]. He states that he was on anticoagulation few years ago, although he does not recall the name of the anticoagulants. He states that he has not been on anticoagulation lately. He does not know the exact reason. Prior to stroke, patient states that he does not have any significant functional limitation. He denies any chest pain, dyspnea for his level of activity. No palpitation, dizziness or syncope. Patient was somewhat somnolent at the time of evaluation, and reliability of his history is questionable. EKG which I personally evaluated showed atrial fibrillatio
[2020-02-04] MEDS: FUROSEMIDE 40 MG TABLET PO (09:05)
[2020-02-04] MEDS: ASPIRIN 81 MG CHEWABLE TABLET PO (09:05)
[2020-02-04] MEDS: LIDOCAINE 5% PATCH 1 PATCH TOPICAL (09:08)
--- NOTE | 2020-02-04 09:25 | PCOTNOTE ---
Attempted OT evaluation, Difficulty arousing patient at this time, pt did not open eyes but reported did not want to participate in therapy at this time, RN notified. Will attempt at later time.
--- NOTE | 2020-02-04 09:27 | PCPTNOTE ---
Attempted PT evaluation however difficulty arousing patient. He would open his eyes after his name was said a few times and then declined therapy at this time requesting that therapy come back later. Will attempt at a later date/time.
[2020-02-04 11:00] LABS: Hepatitis B Surface Antigen Negative (Negative)
[2020-02-04 11:06] LABS: HAV RESULT Negative (Negative); Hepatitis B Core IgM Result Negative (Negative)
[2020-02-04 11:18] LABS: Hepatitis C Virus Antibody Negative (Negative)
[2020-02-04] MEDS: PERFLUTREN LIPID MICROSPHERES 1.5 ML VIAL DILUTED TO 10 ML TOTAL VOLUME IV PUSH (11:31)
--- NOTE | 2020-02-04 11:44 | PCDIET ---
ICU Rounding Note: Pt current nutrition is heart healthy, soft and bite sized Level 6, thickened liquids. Nutrition recommendation: Agree (Recommend addition of DBCC if blood sugars elevate) Last recorded weight is 112.9 kg (down from assessed [facility] wt of 115.4kg yesterday) Bowel Motility: BM yesterday Labs Reviewed: Glucose 147, Troponin .423, Na 130 Meds Noted: Additional Notes: Pt was assessed and followed by RD in [facility]. Moved to ICU last night due to afib with RVR. Pt had been eating 80% of meals. We will continue to monitor PO intake and wt daily in ICU rounds.
--- NOTE | 2020-02-04 12:29 | WPDCNINT ---
Assessment and Plan Assessment and plan (1) Atrial fibrillation with RVR: Code(s): I48.91 - Unspecified atrial fibrillation Status: Acute Assessment and Plan: patient presented with AFib RVR from [facility]. Patient has a history of AFib for the last 6-7 years, initially was on anticoagulation but lately is not on any anticoagulation. - Ischemic stroke on 01/27/2020, patient presented to [facility] where he was out of the window for tPA or thrombectomy - appreciate Cardiology evaluation, patient started on esmolol infusion, diltiazem was discontinued. Anticoagulation if okay with Urology - discussed with Dr. Finch, neurologist, he is okay with anticoagulation with Eliquis - will start Eliquis - maintain heart rates 90s to 100 (2) Systolic congestive heart failure: Code(s): I50.20 - Unspecified systolic (congestive) heart failure Status: Chronic Assessment and Plan: systolic heart failure with EF of 30-35% on an echo done at outside hospital - echocardiogram on 02/04/2020 here at [facility] showed normal LV size, borderline LVH, LV systolic function with EF of 35%. Mild to moderate RV enlargement hypokinesis. Mild aortic stenosis, severe pulmonary hypertension with RVSP of 64 mmHg - cardiology following the patient - may need to start COLTON-inhibitor or ARB with possible beta-bette - continue diuresis (3) Cerebrovascular accident (CVA) involving right cerebral hemisphere: Code(s): I63.9 - Cerebral infarction, unspecified Status: Chronic Assessment and Plan: continue statin, aspirin - PT/ OT to continue fall the patient - speech evaluation to continue following the patient (4) Diabetes mellitus: Code(s): E11.9 - Type 2 diabetes mellitus without complications Status: Chronic Assessment and Plan: continue Accu-Cheks and sliding scale insulin (5) Hypertension: Code(s): I10 - Essential (primary) hypertension Status: Chronic Assessment and Plan: blood pressures remained within normal limits, avoid hypotension given recent stroke (6) Hyperlipidemia: Code(s): E78.5 - Hyperlipidemia, unspecified Status: Chronic Assessment and Plan: continue statin Additional Plan discussed with patient at length and updated with his condition and plan of care. I answered all his questions discussed with neurology, Cardiology. neurology okay to start Eliquis for AFib RVR, code status: Full code Critical care time spent: 47 minutes Due to a high probability of clinically significant, life threatening deterioration, the patient required my highest level of preparedness to intervene emergently and I personally spent this critical care time directly and personally managing the patient. This critical care time included obtaining a history; examining the patient; pulse oximetry; ordering and review of studies; arranging urgent treatment with development of a management plan; evaluation of patient's response to treatment; frequent reassessment; and discussions with other providers. It was exclusive of separately billable procedures and treating other patients and teaching time. Please see Assessment and Plan section and the rest of the note for further information on patient assessment and treatment Enrichment Assistant Consult Note Consult date: 02/04/20 Time Seen: 07:11 Reason for consult: AFib RVR, altered mental status, recent stroke HPI: Sumit Ross is a 69 year old male with significant past medical history of hypertension, diabetes type 2, atrial fibrillation, hyperlipidemia, CVA involving the right cerebral hemisphere on 01/27/2020: Systolic heart failure with EF of 30-35% was transferred to the ICU from [facility] with altered mental status, AFib RVR with heart rates in the 130s. Patient was started on Cardizem infusion, and also was given digoxin In the ICU. Off note patient was recently admitted to [facility]
[2020-02-04 12:41] LABS: Glucose Point of Care 154 (65-105)
--- NOTE | 2020-02-04 15:02 | WPDNEURCNPN ---
Assessment and Plan Assessment and plan (1) Atrial fibrillation with RVR: Code(s): I48.91 - Unspecified atrial fibrillation Status: Acute (2) Atrial fibrillation: Code(s): I48.91 - Unspecified atrial fibrillation Status: Acute (3) BPH (benign prostatic hyperplasia): Code(s): N40.0 - Benign prostatic hyperplasia without lower urinary tract symptoms Status: Chronic (4) Systolic congestive heart failure: Code(s): I50.20 - Unspecified systolic (congestive) heart failure Status: Chronic (5) Hyperlipidemia: Code(s): E78.5 - Hyperlipidemia, unspecified Status: Chronic (6) Cerebrovascular accident (CVA) involving right cerebral hemisphere: Code(s): I63.9 - Cerebral infarction, unspecified Status: Chronic (7) Diabetes mellitus: Code(s): E11.9 - Type 2 diabetes mellitus without complications Status: Chronic (8) Hypertension: Code(s): I10 - Essential (primary) hypertension Status: Chronic (9) Ischemic optic neuropathy: Code(s): H47.019 - Ischemic optic neuropathy, unspecified eye Status: Acute Additional Plan continue present medical management I have discussed this with the graphics editor and his several days post stroke and the anticoagulation can be started for the prevention of future stroke once he is stable enough he can probably be transferred to rehab but I want him to be cardiac dominguez stable enough Consult date: 02/04/20 Time Seen: 14:30 HPI: Sumit Ross is a 69 year old male was on the acute rehab unit couple days ago when he had to be moved to ICU because of low blood pressure and acute onset of the atrial fibrillation with rapid ventricular response his cardiac status is now stable and I have discussed the case with the graphics editor he has several days post stroke has no clinical signs of increased intracranial pressure and in fact in a thing he is much better than when he was in the acute rehab floor The patient denies any headache nausea vomiting chest pain shortness of breath fever chills sore throat He does mention he has a left-sided lazy eye and strabismus for long time he also tells me that it seems like ischemic optic neuropathy with decreased vision diagnosed by neuro asphalt tamper at [facility] for some time ago Review of Systems Review of Systems: All systems reviewed & are unremarkable except as noted in HPI and below PMFSH Past Medical History Medical History BPH (benign prostatic hyperplasia) Cerebrovascular accident (CVA) involving right cerebral hemisphere Diabetes mellitus Hyperlipidemia Hypertension Systolic congestive heart failure last EF 30-35%. Surgical History Surgical History H/O eye surgery 1968 History of left hip replacement 2015 History of tonsillectomy Hx of cholecystectomy 1993 Family History Family History Father Acute myocardial infarction Cerebrovascular accident Mother Chronic a-fib Other Unknown family medical history Social History Social History Social History: the patient lives home alone. His father is a durable power trial attorney for healthcare. The patient is a full code. He is single is never . He does not have any children. He has never smoked. He worked at a [employer]. Patient stated he used to drink either beer or mixed drink every day. No tobacco are marijuana. Smoking status: Never smoker Alcohol intake: never Substance use: never Substance use type: does not use Living arrangements: alone Occupation/Education: retired Gender identity (if verbalized by the patient): Male Spiritual care concerns: No Meds Home Medications and Allergies Home Medications Medication Instructions Recorded Confirmed
[2020-02-04] MEDS: TAMSULOSIN HCL 0.4 MG CAPSULE 0.8 MG PO (20:31)
[2020-02-04] MEDS: ATORVASTATIN 40 MG TABLET PO (20:32)
[2020-02-04] MEDS: APIXABAN 5 MG TABLET PO (21:08)
[2020-02-04] MEDS: ALPRAZolam 0.25 MG TABLET PO (21:11)
[2020-02-04 21:21] LABS: Glucose Point of Care 168 (65-105)
[2020-02-05] VITALS (25 sets, daily range): BP systolic 97–134; BP diastolic 65–100; PULSE 84–158; RESP 20–33; TEMP 36.4–36.8; O2SAT 93–100
[2020-02-05 04:45] LABS: Basophils Percent Auto 0.2 % (0.2-1.2); Eosinophils Absolute Auto 0.2 K/mm3 (0-0.3); Eosinophils Percent Auto 0.8 % (0-4.4); Hemoglobin 10.8 g/dL (14.0-18.0); Immature Granulocyte Percent A 1.1 % (0-0.5); Lymphocytes Absolute Auto 0.89 K/mm3 (0.9-3.2); Mean Corpuscular HGB Conc 30.9 g/dl (32-36); Mean Corpuscular Hemoglobin 22.4 pg (26-34); Mean Corpuscular Volume 72.5 fl (80-100); Mean Platelet Volume 10.3 fl (7.4-10.4); Monocytes Absolute Auto 1.4 K/mm3 (0.1-0.6); Monocytes Percent Auto 7.6 % (2.6-8.5); Neutrophils Absolute Auto 15.1 K/mm3 (1.3-6.7); Neutrophils Percent Auto 85.3 % (45.5-73.1); Nucleated Red Blood Cells Perc 0.2 % (0.0-0.2); Platelet Count Result 219 k/mm3 (150-375); Red Blood Count 4.83 M/mm3 (4.6-6.20); Red Cell Distribution Width 17.8 % (11.5-14.5); White Blood Count 17.7 K/mm3 (4.5-10.0)
[2020-02-05 05:04] LABS: Alanine Aminotransferase 334 U/L (4-50); Albumin Level 3.3 g/dL (3.5-5.1); Alkaline Phosphatase 172 U/L (38-126); Anion Gap 12.2 mmol/L (7-16); Aspartate Amino Transferase 250 U/L (17-59); Bilirubin,Total 1.2 mg/dL (0.2-1.3); Blood Urea Nitrogen 20 mg/dL (9-20); Calcium 8.5 mg/dL (8.4-10.2); Carbon Dioxide 25 mmol/L (22-30); Chloride 95 mmol/L (98-107); Estimated CRCL calculation 114 ml/min; Estimated Glomerular Filt Rate > 60; Glucose 149 mg/dL (75-110); Magnesium 2.1 mg/dL (1.6-2.3); Phosphorus 3.8 mg/dL (2.5-4.5); Potassium 4.2 mmol/L (3.4-5.0); Sodium 128 mmol/L (137-145)
[2020-02-05 07:42] LABS: Glucose Point of Care 135 (65-105)
[2020-02-05] MEDS: FUROSEMIDE 40 MG TABLET PO (08:32)
[2020-02-05] MEDS: LIDOCAINE 5% PATCH 1 PATCH TOPICAL (08:32)
[2020-02-05] MEDS: ASPIRIN 81 MG CHEWABLE TABLET PO (08:32)
[2020-02-05] MEDS: APIXABAN 5 MG TABLET PO ×2 (08:35→19:58)
--- NOTE | 2020-02-05 11:07 | WPDGICN ---
Assessment and Plan Assessment and plan (1) Elevated LFTs: Code(s): R79.89 - Other specified abnormal findings of blood chemistry Status: Acute Assessment and Plan: Elevated LFTs noted at the time of admission the hospital. Etiology unclear. Hepatitis ABC serologies are negative. I suspect this may be related to temporary decline in blood pressure. At this point plan to follow conservatively. Monitor LFTs. If they fail to improve imaging studies will be of some benefit initially. Would defer liver biopsy as patient likely will require anticoagulation. (2) Atrial fibrillation: Code(s): I48.91 - Unspecified atrial fibrillation Status: Acute (3) Cerebrovascular accident (CVA) involving right cerebral hemisphere: Code(s): I63.9 - Cerebral infarction, unspecified Status: Chronic (4) Hypertension: Code(s): I10 - Essential (primary) hypertension Status: Chronic (5) Diabetes mellitus: Code(s): E11.9 - Type 2 diabetes mellitus without complications Status: Chronic GI Consult Note Consult date/time: 02/05/20 11:07 HPI: Sumit Ross is a 69 year old male Seen in evaluation at the request of the kindergartner service. Patient has an underlying history of atrial fibrillation. He was not on anticoagulation. Suffered a CVA on 01/27/2020 initially seen at [facility]. Transferred [facility] for rehabilitation. Patient was subsequently transferred [facility] and in the intensive care unit with left-sided weakness and facial droop and elevated troponin levels. Patient's LFTs were noted to be elevated. For this reason I have been consulted. Patient denies any prior history of liver disease. He has had no recent travel. He has taken no new medications aside from that given at the hospital status. He has no prior history of hepatitis or jaundice that he is aware of. He denies any heavy alcohol intake. Family history is noncontributory. Review of Systems Review of Systems: All systems reviewed & are unremarkable except as noted in HPI and below PMFSH Past Medical History Medical History BPH (benign prostatic hyperplasia) Cerebrovascular accident (CVA) involving right cerebral hemisphere Diabetes mellitus Hyperlipidemia Hypertension Ischemic optic neuropathy Systolic congestive heart failure last EF 30-35%. Surgical History Surgical History H/O eye surgery 1968 History of left hip replacement 2015 History of tonsillectomy Hx of cholecystectomy 1993 Family History Family History Father Acute myocardial infarction Cerebrovascular accident Mother Chronic a-fib Other Unknown family medical history Social History Social History Social History: the patient lives home alone. His father is a durable power word processing supervisor for healthcare. The patient is a full code. He is single is never . He does not have any children. He has never smoked. He worked at a [employer]. Patient stated he used to drink either beer or mixed drink every day. No tobacco are marijuana. Smoking status: Never smoker Alcohol intake: never Substance use: never Substance use type: does not use Living arrangements: alone Occupation/Education: retired Gender identity (if verbalized by the patient): Male Spiritual care concerns: No Meds Home Medications and Allergies Home Medications Medication Instructions Recorded Confirmed Type aspirin 81 mg PO DAILY 01/31/20 02/03/20 History atorvastatin 40 mg PO HS 01/31/20 02/03/20 History furosemide 40 mg PO DAILY 01/31/20 02/03/20 History heparin (porcine) 5,000 unit SUBCUT Q8H 01/31/20 02/03/20 History lidocaine 1 patch TOPICAL DAILY 01/31/20 02/03/20 History met
--- NOTE | 2020-02-05 11:24 | PM.PNCARD ---
Progress Note: A&P Additional Plan 69-year-old man felt to atrial fib chronically although there is no definite documentation of this in the chart. He is not really symptomatic with the arrhythmia and heart rate is fairly well controlled with esmolol running intravenously. He is taking oral medications and diet. Anticoagulation has been initiated in the form of apixaban. Today I will recommend transitioning her from IV esmolol to oral metoprolol starting with a dosage of 50 mg q.12 and watch the heart rate response. We may or may not have to titrate the dosage but will start with this for now. It would be helpful to see records from [facility] with ECGs and rhythm during the esophageal echo that would potentially corroborate whether this atrial fibrillation is paroxysmal or chronic. Vince Shafer MD [facility] Subjective Date/time seen: date of service:02/05/20 11:24 Interval history: Follow-up visit in this 69-year-old man with recent to CVA, hemiplegia and found to be in AFib with RVR on rehab service and transferred to the hospital ICU for management. Frustratingly there are no records available from the referring hospital that indicate the status of his rhythm at the time of transfer. As such it is not clear to me if the atrial fibrillation is recurrent, new onset or chronic. Patient is asymptomatic seems to be alert and responsive answers questions slowly but appropriately. Intravenous esmolol is infusing as per Dr. Link's recommendations from yesterday. Systemic anticoagulation in the form of apixaban has been initiated. Exam Const: General: comfortable and no acute distress Other: Somewhat lethargic white male in ICU room 8. But is arousable and answers questions appropriately. HENMT: Mouth: Yes moist mucous membranes Eyes: Sclera: sclerae normal Pupils: Equal, round and reactive pupils present Neck: Neck: supple and no JVD Thyroid: thyroid normal Resp: Effort & Inspection: normal respiratory effort Other: Few rhonchi are noted centrally Cardio: Rhythm: abnormal rhythm irregularly irregular GI: Auscultation: normal bowel sounds Neuro: Cognition (Neuro): abnormal cognition Other: as stated above response to questions appropriately but slowly. Objective Data Vital Signs Vital Signs: Vital Signs - 24 hr 02/04/20 12:00 02/04/20 13:00 02/04/20 14:00 Temperature 36.8 C Pulse Rate 91 112 H 121 H Respiratory Rate 16 25 H Blood Pressure 126/78 127/83 143/110 H Pulse Oximetry 95 95 02/04/20 15:44 02/04/20 16:00 02/04/20 16:37 Temperature Pulse Rate 122 H 109 H 122 H Respiratory Rate 28 H Blood Pressure 124/91 H 124/91 H 124/91 H Pulse Oximetry 97 02/04/20 18:00 02/04/20 20:00 02/04/20 21:09 Temperature 36.6 C Pulse Rate 100 101 H 110 H Respiratory Rate 32 H 27 H Blood Pressure 108/75 112/85 115/79 Pulse Oximetry 98 93 02/04/20 21:55 02/04/20 22:00 02/04/20 22:25 Temperature Pulse Rate 115 H Respiratory Rate 26 H Blood Pressure 108/95 H Pulse Oximetry 97 97 97 02/05/20 00:00 02/05/20 00:53 02/05/20 02:00 Temperature 36.4 C Pulse Rate 123 H 101 H 104 H Respiratory Rate 23 H 21 H Blood Pressure 112/80 124/81 101/65 Pulse Oximetry 98 100 02/05/20 04:00 02/05/20 04:59 02/05/20 06:00 Temperature 36.4 C Pulse Rate 115 H 116 H 127 H Respiratory Rate 20 22 H Blood Pressure 113/100 H 107/79 117/80 Pulse Oximetry 97 96 02/05/20 07:40 02/05/20 08:00 02/05/20 08:28 Temperature 36.5 C Pulse Rate 107 H 124 H 95 Respiratory Rate 21 H Blood Pressure 127/73 103/80 103/80 Pulse Oximetry 97 02/05/20 10:00 02/05/20 10:04 Temperature Pulse Rate 106 H 114 H Respiratory Rate 21 H 21 H Blood Pressure 97/75 L Pulse Oximetry 95 95 Intake/Output Intake/Output: Intake & Output 02/02/20 02/03/20 02/04/20 02/05/20 23:59 23:59 23:59 23:59 Intake Total 1540 1230 Output Total 1000 350 Balance 540 880
--- NOTE | 2020-02-05 11:29 | PCFNICU ---
ICU Rounding Note: Pt current nutrition Heart Healthy/Soft and Bite sized, Level 6 with Mildly Thick liquids, Level 2. Nutrition recommendation: Agree Last recorded weight is 117.4 kg. Bowel Motility:No BM reported. Labs Reviewed:Na 128,Hct 35.0,Hgb 10.8.Glu 149 Meds Noted:Eliquis,Lasix,Flomax,Lipitor Additional Notes: Patient had refused lunch and dinner meals yesterday. Patient eating breakfast today, 50% consumed. Neurology is following. Following daily in ICU rounds.
[2020-02-05] MEDS: METOPROLOL TARTRATE 50 MG TAB PO (11:40)
[2020-02-05 11:50] LABS: Glucose Point of Care 217 (65-105)
[2020-02-05 12:00] LABS: Iron 22 ug/dL (49-181)
[2020-02-05 12:10] LABS: Percent Iron Saturation 6 % (20-50)
[2020-02-05] MEDS: INSULIN ASPART (*BKC) 100 UNITS/ML SUB-Q (12:22)
--- NOTE | 2020-02-05 13:13 | WPDINTPN ---
Progress Note: A&P Assessment and Plan (1) Atrial fibrillation with RVR: Code(s): I48.91 - Unspecified atrial fibrillation Status: Acute Assessment and Plan: patient presented with AFib RVR from [facility]. Patient has a history of AFib for the last 6-7 years, initially was on anticoagulation but lately is not on any anticoagulation. - Ischemic stroke on 01/27/2020, patient presented to [facility] [place] where he was out of the window for tPA or thrombectomy - appreciate Cardiology evaluation, - discussed with cardiology regarding esmolol infusion, Dr. Shafer switched patient to p.o. metoprolol - discussed with Dr. Finch, neurologist, he is okay with anticoagulation with Eliquis - continue Eliquis - maintain heart rates 90s to 100 - will obtain records from outside hospital (2) Systolic congestive heart failure: Code(s): I50.20 - Unspecified systolic (congestive) heart failure Status: Chronic Assessment and Plan: systolic heart failure with EF of 30-35% on an echo done at outside hospital - echocardiogram on 02/04/2020 here at [facility] showed normal LV size, borderline LVH, LV systolic function with EF of 35%. Mild to moderate RV enlargement hypokinesis. Mild aortic stenosis, severe pulmonary hypertension with RVSP of 64 mmHg - cardiology following the patient - may need to start COLTON-inhibitor or ARB with possible beta-bette - continue diuresis (3) Cerebrovascular accident (CVA) involving right cerebral hemisphere: Code(s): I63.9 - Cerebral infarction, unspecified Status: Chronic Assessment and Plan: continue statin, aspirin - PT/ OT to continue fall the patient - speech evaluation to continue following the patient - urology following the patient (4) Diabetes mellitus: Code(s): E11.9 - Type 2 diabetes mellitus without complications Status: Chronic Assessment and Plan: continue Accu-Cheks and sliding scale insulin (5) Hypertension: Code(s): I10 - Essential (primary) hypertension Status: Chronic Assessment and Plan: blood pressures remained within normal limits, avoid hypotension given recent stroke (6) Hyperlipidemia: Code(s): E78.5 - Hyperlipidemia, unspecified Status: Chronic Assessment and Plan: continue statin Additional Plan discussed with patient and his father at bedside and updated them with patient's condition and plan of care. Answered all questions. discussed with neurology, Cardiology. code status: Full code Critical care time spent: 33 minutes Due to a high probability of clinically significant, life threatening deterioration, the patient required my highest level of preparedness to intervene emergently and I personally spent this critical care time directly and personally managing the patient. This critical care time included obtaining a history; examining the patient; pulse oximetry; ordering and review of studies; arranging urgent treatment with development of a management plan; evaluation of patient's response to treatment; frequent reassessment; and discussions with other providers. It was exclusive of separately billable procedures and treating other patients and teaching time. Please see Assessment and Plan section and the rest of the note for further information on patient assessment and treatment Subjective Date/time seen: 02/05/20 13:13 Interval history: Reason for consult: AFib RVR, altered mental status, recent stroke 02/05/2020: patient seen and examined. Is awake, alert, follows simple commands and answers to questions appropriately. Remains on esmolol infusion, heart rate continues to be elevated in the 110s to 120s, patient also with times steps into the 80s and 90s. Blood pressures have been stable, remains in AFib. Patient is awake, alert, oriented. Urine output has been adequate, afebrile LFTs rising along with WBC count. Giuliana
--- NOTE | 2020-02-05 14:39 | PCPTNOTE ---
Attempted to see patient for Physical Therapy this PM. Patient refused secondary to being too tired. RN notified. RN stated that patient seemed to have more energy in the AM.
[2020-02-05] MEDS: METOPROLOL TARTRATE 25 MG TABLET PO (14:51)
[2020-02-05 16:05] LABS: Glucose Point of Care 146 (65-105)
--- NOTE | 2020-02-05 16:09 | PC.NURSE ---
Spoke with Seema Escobar about pulse rate continues to be in 120's but not consistently. Will monitor it for now and see if decreases after a couple doses of Metroprolol.
--- NOTE | 2020-02-05 16:24 | WPDNEUROPN ---
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 - Ischemic optic neuropathy, unspecified eye Status: Acute (3) Atrial fibrillation with RVR: Code(s): I48.91 - Unspecified atrial fibrillation Status: Acute (4) Atrial fibrillation: Code(s): I48.91 - Unspecified atrial fibrillation Status: Acute (5) BPH (benign prostatic hyperplasia): Code(s): N40.0 - Benign prostatic hyperplasia without lower urinary tract symptoms Status: Chronic (6) Systolic congestive heart failure: Code(s): I50.20 - Unspecified systolic (congestive) heart failure Status: Chronic (7) Hyperlipidemia: Code(s): E78.5 - Hyperlipidemia, unspecified Status: Chronic (8) Cerebrovascular accident (CVA) involving right cerebral hemisphere: Code(s): I63.9 - Cerebral infarction, unspecified Status: Chronic (9) Diabetes mellitus: Code(s): E11.9 - Type 2 diabetes mellitus without complications Status: Chronic (10) Hypertension: Code(s): I10 - Essential (primary) hypertension Status: Chronic (11) Left hemiparesis: Code(s): G81.94 - Hemiplegia, unspecified affecting left nondominant side Status: Acute Additional Plan continue present medical management will follow periodically Review of Systems Review of Systems: All systems reviewed & are unremarkable except as noted in HPI and below Exam Const: General: comfortable and no acute distress HENMT: General nose exam: Normal nares present Mouth: Yes moist mucous membranes Eyes: General: appearance normal, both eyes and all related structures Neck: Neck: supple and no JVD Resp: Other: mild rhonchi bilaterally Cardio: Other: AFib with ventricular response at a higher rate between 120 to 130 or even 150 GI: Auscultation: normal bowel sounds Skin: General skin exam: normal color and no rashes or lesions noted Neuro: Other: patient is alert however little drowsy arousable with a fixed left-sided hemiparesis which is not any different than the previous examination Extrem: General: normal to inspection Psych: Mental Status: mental status grossly normal Other: memory for the most recent event is foggy Objective Data Vital Signs Vital Signs: Vital Signs - 24 hr 02/04/20 16:37 02/04/20 18:00 02/04/20 20:00 Temperature 36.6 C Pulse Rate 122 H 100 101 H Respiratory Rate 32 H 27 H Blood Pressure 124/91 H 108/75 112/85 Pulse Oximetry 98 93 02/04/20 21:09 02/04/20 21:55 02/04/20 22:00 Temperature Pulse Rate 110 H 115 H Respiratory Rate 26 H Blood Pressure 115/79 108/95 H Pulse Oximetry 97 97 02/04/20 22:25 02/05/20 00:00 02/05/20 00:53 Temperature 36.4 C Pulse Rate 123 H 101 H Respiratory Rate 23 H Blood Pressure 112/80 124/81 Pulse Oximetry 97 98 02/05/20 02:00 02/05/20 04:00 02/05/20 04:59 Temperature 36.4 C Pulse Rate 104 H 115 H 116 H Respiratory Rate 21 H 20 Blood Pressure 101/65 113/100 H 107/79 Pulse Oximetry 100 97 02/05/20 06:00 02/05/20 07:40 02/05/20 08:00 Temperature 36.5 C Pulse Rate 127 H 107 H 124 H Respiratory Rate 22 H 21 H Blood Pressure 117/80 127/73 103/80 Pulse Oximetry 96 97 02/05/20 08:28 02/05/20 10:00 02/05/20 10:04 Temperature Pulse Rate 95 106 H 114 H Respiratory Rate 21 H 21 H Blood Pressure 103/80 97/75 L Pulse Oximetry 95 95 02/05/20 11:28 02/05/20 11:40 02/05/20 12:00 Temperature 36.4 C L Pulse Rate 107 H 120 H 132 H Respiratory Rate 27 H Blood Pressure 110/79 109/85 Pulse Oximetry 96 02/05/20 12:30 02/05/20 14:00 02/05/20 14:51 Temperature Pulse Rate 122 H 104 H Respiratory Rate 26 H Blood Pressure 127/71 Pulse Oximetry 94 97 02/05/20 14:54 02/05/20 15:40 02/05/20 16:00 [facility]
[2020-02-05] MEDS: METOPROLOL TARTRATE 25 MG TABLET 75 MG PO (19:55)
[2020-02-05] MEDS: TAMSULOSIN HCL 0.4 MG CAPSULE 0.8 MG PO (19:56)
[2020-02-05] MEDS: ATORVASTATIN 40 MG TABLET PO (19:57)
[2020-02-05 21:12] LABS: Glucose Point of Care 155 (65-105)
--- NOTE | 2020-02-05 22:00 | PC.NURSE ---
This patient, Sumit Ross, was transferred to [ [id number]] on 02/05/20 at 2150. Personal belongings sent with patient. Belongings list checked and signed with receiving [ ]. Report given to [Leah FISCHER ]. Appropriate documentation sent with patient.
--- NOTE | 2020-02-05 22:06 | PC.NURSE ---
This patient, Sumit Ross, was received from ICU-8 on 02/05/20 at 2206 TO IMU-203. REPORT FROM WAYNE FISCHER. Personal belongings list checked and signed. Patient/family oriented to unit policies and routines
[2020-02-06] VITALS (19 sets, daily range): BP systolic 114–152; BP diastolic 83–102; PULSE 107–160; RESP 18–22; TEMP 36–36.8; O2SAT 92–97
[2020-02-06] MEDS: METOPROLOL TARTRATE INJ 5 MG/5 ML VIAL IV PUSH ×2 (01:28→05:34)
[2020-02-06 04:49] LABS: Basophils Absolute Auto 0.1 K/mm3 (0.0-0.1); Basophils Percent Auto 0.3 % (0.2-1.2); Eosinophils Percent Auto 0.2 % (0-4.4); Hematocrit 37.5 % (42.0-52.0); Hemoglobin 11.3 g/dL (14.0-18.0); Immature Granulocyte Absolute 0.41 K/mm3 (0.00-0.031); Immature Granulocyte Percent A 2.3 % (0-0.5); Lymphocytes Absolute Auto 0.82 K/mm3 (0.9-3.2); Lymphocytes Percent Auto 4.7 % (18.3-44.2); Mean Corpuscular HGB Conc 30.1 g/dl (32-36); Mean Corpuscular Hemoglobin 22.2 pg (26-34); Mean Corpuscular Volume 73.5 fl (80-100); Mean Platelet Volume 10.6 fl (7.4-10.4); Monocytes Absolute Auto 1.2 K/mm3 (0.1-0.6); Monocytes Percent Auto 6.9 % (2.6-8.5); Neutrophils Absolute Auto 15.1 K/mm3 (1.3-6.7); Neutrophils Percent Auto 85.6 % (45.5-73.1); Nucleated Red Blood Cells Perc 0.2 % (0.0-0.2); Platelet Count Result 288 k/mm3 (150-375); Red Cell Distribution Width 18.6 % (11.5-14.5); White Blood Count 17.6 K/mm3 (4.5-10.0)
[2020-02-06 05:08] LABS: Alanine Aminotransferase 424 U/L (4-50); Albumin Level 3.5 g/dL (3.5-5.1); Alkaline Phosphatase 268 U/L (38-126); Anion Gap 13.3 mmol/L (7-16); Aspartate Amino Transferase 251 U/L (17-59); Blood Urea Nitrogen 23 mg/dL (9-20); Calcium 8.7 mg/dL (8.4-10.2); Carbon Dioxide 28 mmol/L (22-30); Chloride 91 mmol/L (98-107); Estimated CRCL calculation 116 ml/min; Estimated Glomerular Filt Rate > 60; Glucose 164 mg/dL (75-110); Lipase 216 U/L (23-300); Magnesium 2.1 mg/dL (1.6-2.3); Phosphorus 3.9 mg/dL (2.5-4.5); Potassium 4.3 mmol/L (3.4-5.0); Sodium 128 mmol/L (137-145)
[2020-02-06] MEDS: METOPROLOL TARTRATE 25 MG TABLET 75 MG PO ×3 (05:34→20:33)
[2020-02-06 08:12] LABS: Glucose Point of Care 166 (65-105)
[2020-02-06] MEDS: LIDOCAINE 5% PATCH 1 PATCH TOPICAL (08:26)
[2020-02-06] MEDS: APIXABAN 5 MG TABLET PO ×2 (08:26→21:39)
[2020-02-06] MEDS: ASPIRIN 81 MG CHEWABLE TABLET PO (08:26)
[2020-02-06] MEDS: FUROSEMIDE 40 MG TABLET PO (08:26)
--- NOTE | 2020-02-06 10:56 | WPDGIPROGNO ---
Progress Note: A&P Additional Plan Patient unchanged. He has significant dysarthria making history difficult. Dense left hemiplegia noted. No signs of of bleeding. He denies abdominal pain. Physical exam reveals him to have a facial droop. Dysarthria identified. Lungs are clear. Heart without murmur. Irregularly irregular heartbeat. Abdomen bowel sounds are present soft nontender with no organomegaly. Labs reveal total bilirubin 2, AST 251, ALT 424, alk-phos 268 hemoglobin 11.3, hematocrit 37, MCV 73. Impression 1. Elevated LFTs. Etiology of this remains somewhat unclear. Plan to fractionate the bilirubin. Continue to monitor LFTs. Right upper quadrant ultrasound unremarkable at this time. Hepatitis ABC serologies are also negative. I would follow conservatively for now. 2. Status post CVA. 3. Atrial fibrillation. To be anticoagulated. At present see no contraindication to anticoagulation. Subjective Date/time seen: 02/06/20 10:56 Objective Data Vital Signs Vital Signs: Vital Signs - 24 hr 02/05/20 11:28 02/05/20 11:40 02/05/20 12:00 Temperature 97.5 F L Pulse Rate 107 H 120 H 132 H Respiratory Rate 27 H Blood Pressure 110/79 109/85 Pulse Oximetry 96 02/05/20 12:30 02/05/20 14:00 02/05/20 14:51 Temperature Pulse Rate 122 H 104 H Respiratory Rate 26 H Blood Pressure 127/71 Pulse Oximetry 94 97 02/05/20 14:54 02/05/20 15:40 02/05/20 16:00 Temperature 98.2 F Pulse Rate 133 H 119 H 120 H Respiratory Rate 24 H 25 H 24 H Blood Pressure 127/71 116/97 H Pulse Oximetry 96 94 93 02/05/20 18:00 02/05/20 19:55 02/05/20 20:00 Temperature 98 F Pulse Rate 135 H 158 H 147 H Respiratory Rate 25 H 33 H Blood Pressure 130/84 134/88 Pulse Oximetry 95 95 02/05/20 22:00 02/05/20 23:46 02/06/20 01:20 Temperature 98 F Pulse Rate 149 H 138 H Respiratory Rate 22 H Blood Pressure 125/88 126/90 Pulse Oximetry 95 02/06/20 01:28 02/06/20 01:30 08/06/20 04:00 Temperature 98 F Pulse Rate 158 H 138 H 145 H Respiratory Rate 22 H Blood Pressure 120/83 Pulse Oximetry 95 02/06/20 05:32 02/06/20 05:34 02/06/20 06:00 Temperature Pulse Rate 155 H 155 H 133 H Respiratory Rate Blood Pressure Pulse Oximetry 02/06/20 08:00 02/06/20 08:23 02/06/20 10:00 Temperature 97.6 F Pulse Rate 128 H 113 H 134 H Respiratory Rate 20 Blood Pressure 128/84 Pulse Oximetry 97 Intake/Output Intake/Output: Intake & Output 02/03/20 02/04/20 02/05/20 02/06/20 23:59 23:59 23:59 23:59 Intake Total 1540 2110 250 Output Total 1000 725 450 Balance 540 1385 -200 Meds/Results Medications: Active Medications Generic Name Dose Route Start Last Admin Trade Name Freq PRN Reason Stop Dose Admin Alprazolam 0.25 mg 02/04/20 18:04 02/04/20 21:11 Xanax PO 0.25 mg HS PRN Administration Anxiety Apixaban 5 mg 02/04/20 21:00 02/06/20 08:26 Eliquis PO 5 mg Q12HR NADYA Administration Aspirin 81 mg 02/04/20 09:00 02/06/20 08:26 Aspirin Chewable PO 81 mg DAILY NADYA Administration Atorvastatin Calcium 40 mg 02/03/20 21:00 02/05/20 19:57 Lipitor PO 40 mg HS NADYA Administration Dextrose 12.5 gm 02/03/20 18:56 Dextrose 50% Syringe IV PUSH PRN PRN Hypoglycemia Protocol Furosemide 40 mg 02/04/20 09:00 02/06/20 08:26 Lasix Tablet PO 40 mg DAILY NADYA Administration Glucagon 1 mg 02/03/20 18:56 Glucagon For Inj IM PRN PRN Hypoglycemia Protocol Glucose 15 gm 02/03/20 18:56 Glutose 15 PO PRN PRN Hypoglycemia Protocol Dextrose 1,000 mls @ 100 mls/hr 02/03/20 18:56 Dextrose 5% 1,000 Ml IVPB PRN PRN Hypoglycemia Protocol Insulin Aspart 2 - 5 units 02/04/20 08:00 02/06/20 08:20 Novolog SUB-Q Not Given TIDWM NADYA Protocol Lidocaine 1 patch 02/04/20 09:00 02/06/20 08:26 Lidoderm TOPICAL
[2020-02-06 11:41] LABS: Glucose Point of Care 166 (65-105)
[2020-02-06 11:51] LABS: Bilirubin Indirect 0.9 mg/dL (0-1.1); Bilirubin,Total 1.8 mg/dL (0.2-1.3)
--- NOTE | 2020-02-06 12:16 | WPDNEUROPN ---
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 - Ischemic optic neuropathy, unspecified eye Status: Acute (4) Atrial fibrillation with RVR: Code(s): I48.91 - Unspecified atrial fibrillation Status: Acute (5) Atrial fibrillation: Code(s): I48.91 - Unspecified atrial fibrillation Status: Acute (6) BPH (benign prostatic hyperplasia): Code(s): N40.0 - Benign prostatic hyperplasia without lower urinary tract symptoms Status: Chronic (7) Systolic congestive heart failure: Code(s): I50.20 - Unspecified systolic (congestive) heart failure Status: Chronic (8) Hyperlipidemia: Code(s): E78.5 - Hyperlipidemia, unspecified Status: Chronic (9) Cerebrovascular accident (CVA) involving right cerebral hemisphere: Code(s): I63.9 - Cerebral infarction, unspecified Status: Chronic (10) Diabetes mellitus: Code(s): E11.9 - Type 2 diabetes mellitus without complications Status: Chronic (11) Hypertension: Code(s): I10 - Essential (primary) hypertension Status: Chronic Additional Plan at this point is neurological stable the present management needs to be continued Review of Systems Review of Systems: All systems reviewed & are unremarkable except as noted in HPI and below Exam Const: General: comfortable and no acute distress HENMT: General nose exam: Normal nares present Mouth: Yes moist mucous membranes Eyes: General: appearance normal, both eyes and all related structures Neck: Neck: supple and no JVD Resp: Effort & Inspection: normal respiratory effort Auscultation: clear to auscultation bilaterally Cardio: Other: tachycardia and irregularly irregular rhythm GI: Auscultation: normal bowel sounds Skin: General skin exam: normal color and no rashes or lesions noted Neuro: Other: patient remains awake alert well oriented will [id number] left-sided hemiparesis Extrem: General: normal to inspection Psych: Mental Status: mental status grossly normal Other: mild short-term memory deficit Objective Data Vital Signs Vital Signs: Vital Signs - 24 hr 02/06/20 13:41 08/06/20 14:00 02/06/20 16:00 Temperature 36.8 C Pulse Rate 149 H 132 H 132 H Respiratory Rate 18 Blood Pressure 114/85 Pulse Oximetry 92 02/06/20 18:00 02/06/20 20:00 02/06/20 20:17 Temperature 36.0 C L Pulse Rate 153 H 160 H 151 H Respiratory Rate 20 Blood Pressure 152/102 H Pulse Oximetry 96 02/06/20 20:33 02/06/20 22:00 02/07/20 00:00 Temperature Pulse Rate 160 H 152 H 154 H Respiratory Rate Blood Pressure Pulse Oximetry 02/07/20 00:12 02/07/20 02:00 02/07/20 03:51 Temperature 35.6 C L Pulse Rate 85 148 H 151 H Respiratory Rate 18 Blood Pressure 128/97 H Pulse Oximetry 94 02/07/20 04:36 02/07/20 05:56 02/07/20 06:00 Temperature 36.2 C L Pulse Rate 138 H 144 H 140 H Respiratory Rate 18 Blood Pressure 129/74 Pulse Oximetry 95 02/07/20 08:00 02/07/20 11:50 02/07/20 12:02 Temperature 36.2 C L 37.1 C Pulse Rate 132 H 140 H 76 Respiratory Rate 18 22 H 24 H Blood Pressure 132/96 H 152/79 H 113/60 Pulse Oximetry 97 94 94 Intake/Output Intake/Output: Intake & Output 02/04/20 02/05/20 02/06/20 02/07/20 23:59 23:59 23:59 23:59 Intake Total 1540 2110 250 Output Total 1000 725 975 450 Balance 540 1385 -725 -450 Meds/Results Medications: Active Medications Generic Name Dose Route Start Last Admin Trade Name Freq PRN Reason Stop Dose Admin Alprazolam 0.25 mg 02/04/20 18:04 02/04/20 21:11 Xanax PO 0.25 mg HS PRN Administration Anxiety Amiodarone
--- NOTE | 2020-02-06 13:51 | PCSTNOTE ---
Patient unable to participate due to medical condition. PT just finished and nursing agreed.
--- NOTE | 2020-02-06 14:56 | PM.PNCARD ---
Progress Note: A&P Assessment and Plan (1) Atrial fibrillation with RVR: Code(s): I48.91 - Unspecified atrial fibrillation Status: Acute Assessment and Plan: Patient remains in atrial fibrillation RVR despite metoprolol 75 mg q.8 hours. Blood pressure stable. Has been anticoagulated with Eliquis since p.m. Will add some IV metoprolol prn; hold in a.m. Trying to avoid Cardizem because of the patient's cardiomyopathy. Discussed possible ( NEY guided? ) cardioversion tomorrow with the patient who is in agreement. Spoke to patient's father who is his power of real estate associate attorney about AFib and possible cardioversion and he is appreciative of my phone call. Will DC ASA since pt is taking Eliquis. (2) Systolic congestive heart failure: Code(s): I50.20 - Unspecified systolic (congestive) heart failure Status: Chronic Assessment and Plan: Cardiomyopathy with a recent TTE from outside hospital reported show LVEF 30-35%. Does not appear to be in acute CHF or volume overloaded. Tolerating p.o. metoprolol Add ACEI, ARB or ARNI at a later date. At this time, would leave room for AV kate blocking agents for rate control. (3) Cerebrovascular accident (CVA) involving right cerebral hemisphere: Code(s): I63.9 - Cerebral infarction, unspecified Status: Chronic Assessment and Plan: Perhaps caused by Paroxysmal AFib. Management as per primary team, Neurology Anticoagulation Statin Rehab, PT OT, speech evaluation (4) Diabetes mellitus: Code(s): E11.9 - Type 2 diabetes mellitus without complications Status: Chronic Assessment and Plan: optimal blood sugar control Subjective Date/time seen: 02/06/20 14:56 Interval history: Follow-up visit in this 69-year-old man with recent to CVA Evaluated at [facility], hemiplegia and found to be in AFib with RVR on rehab service and transferred to the hospital ICU for management. The atrial fibrillation appears to be of new onset 02/03/2020 a.m. and anticoagulation started 02/04/2020 pm. 02/05/2020 Visit: Patient is asymptomatic seems to be alert and responsive answers questions slowly but appropriately. Intravenous esmolol is infusing as per Dr. Link's recommendations from yesterday; change to metoprolol 75 mg b.i.d. Systemic anticoagulation in the form of apixaban has been initiated. Date of service 02/06/2020: Patient has been transferred to IMU but since being off the esmolol drip and taking po metoprolol 75 mg q.8 hours his AFib rate has been up in the 140s fairly consistently. Patient is denying any problems with shortness of breath, chest pain or palpitations. Denies any prior history of heart disease or atrial fibrillation. Echo from [place] 02/04/2020: EF 30-35%, Mild right ventricular enlargement, mild , mild TR, RVSP 64 mmHg. Records reviewed: [address] Lazaro Quintanilla, [facility], for trace aortic insufficiency, metabolic syndrome, diabetes, dyslipidemia, obesity, sleep apnea intolerant of CPAP and mild pulmonary hypertension. Records from [facility] 01/27/2020 01/31/2020. 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 Follow-up CT did not show any hemorrhagic conversion. Aspirin resumed.Echo EF 30-35%, severe LV dysfunction, mild LV enlargement and LVH, mild AI/MR, negative bubble study. EKG on admission showed NSR, as did an EKG on 01/29/2020. Frequent PVCs. Review of Systems Constitutional: Constitutional: Reports weakness ENT: Reports Normal hearing present Cardiovascular: Cardiovascular: Denies chest pain, Denies pedal edema, Denies leg edema and Denies palpitations Respiratory: Respiratory: Denies cough, Denies dyspnea and Den
--- NOTE | 2020-02-06 15:25 | PM.IMPN ---
Progress Note: A&P Assessment and Plan (1) Atrial fibrillation with RVR: Code(s): I48.91 - Unspecified atrial fibrillation Status: Acute Assessment and Plan: 02/06/20 15:25 patient is 69-year-old male with history of diabetes hypertension hyperlipidemia LV dysfunction with ejection fraction of 35% initially patient was seen at [facility] on January 27, 2020 and had a stroke patient was not treated with tPA as he was outside the window further treatment, from there patient was transferred to TRC at [facility], while in the TRC patient developed atrial fibrillation with RVR and he was transferred to ICU started the patient on diltiazem drip however due to poor LV function patient was switched over to esmolol and patient rate still trending high, 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 will continue present managed, and being anticoagulated with Eliquis patient is seen by neurologist and he is okay with with anticoagulation and he is currently in IMU, today patient denies any complaint of palpitation chest pain shortness of breath palpitation fever or or chills, once the patient clinically stable in the rate is controlled will transfer the patient to [facility] (2) Elevated LFTs: Code(s): R79.89 - Other specified abnormal findings of blood chemistry Status: Acute Assessment and Plan: patient with elevated LFT etiology uncertain seen by GI will continue to trend patient is clinically stable (3) Systolic congestive heart failure: Code(s): I50.20 - Unspecified systolic (congestive) heart failure Status: Chronic Assessment and Plan: patient appears euvolemic (4) Cerebrovascular accident (CVA) involving right cerebral hemisphere: Code(s): I63.9 - Cerebral infarction, unspecified Status: Chronic Assessment and Plan: once patient clinically stable will transfer the patient to [facility], patient is seen by neurologist Time Spent With Patient Time with patient: 15 - 25 minutes Subjective Date/time seen: 02/06/20 15:25 patient is 69-year-old male with history of diabetes hypertension hyperlipidemia LV dysfunction with ejection fraction of 35% initially patient was seen at [facility] on January 27, 2020 and had a stroke patient was not treated with tPA as he was outside the window further treatment, from their patient was transferred to TR at [facility], while in the TRC patient developed atrial fibrillation with RVR and he was transferred to ICU started the patient on diltiazem drip however due to poor LV function patient was switched over to esmolol and patient rate still trending high, 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 will continue present managed, and being anticoagulated with Eliquis patient is seen by neurologist and he is okay with with anticoagulation and he is currently in IMU, today patient denies any complaint of palpitation chest pain shortness of breath palpitation fever or or chills, once the patient clinically stable in the rate is controlled will transfer the patient to [facility] Review of Systems Review of Systems: All systems reviewed & are unremarkable except as noted in HPI and below Exam Const: General: comfortable and no acute distress HENMT: General nose exam: Normal nares present Eyes: General: appearance normal, both eyes and all related structures Sclera: sclerae normal Neck: Neck: supple Resp: Effort & Inspection: normal respiratory effort Auscultation: clear to auscultation bilaterally Cardio: Other: irregularly irregular GI: Auscultation: normal bowel sounds Skin: General skin exam: normal color Neuro: Speech: normal speech Sensory Exam: normal sensation Extrem: General: normal to inspection Psych: Affect: Anxious affect present Objective Data Vital Signs Vital Signs: Vital Signs - 24 hr 02/05/20 15:40 02/05/20 16:00 02/05/20 18:00 Temperature 98.2 F Pulse Rate 119 H 120 H 135 H Respiratory Rate 25 H 24 H 25 H Bloo
[2020-02-06 16:30] LABS: Glucose Point of Care 143 (65-105)
[2020-02-06 21:04] LABS: Glucose Point of Care 193 (65-105)
[2020-02-06] MEDS: TAMSULOSIN HCL 0.4 MG CAPSULE 0.8 MG PO (21:38)
[2020-02-06] MEDS: ATORVASTATIN 40 MG TABLET PO (21:38)
[2020-02-07] VITALS (25 sets, daily range): BP systolic 113–152; BP diastolic 58–101; PULSE 64–154; RESP 18–24; TEMP 35.6–37.1; O2SAT 94–99
[2020-02-07 00:12] LABS: Glucose Point of Care 157 (65-105)
[2020-02-07 04:51] LABS: Hematocrit 36.2 % (42.0-52.0); Hemoglobin 11.2 g/dL (14.0-18.0); Mean Corpuscular HGB Conc 30.9 g/dl (32-36); Mean Corpuscular Hemoglobin 22.3 pg (26-34); Mean Platelet Volume 10.3 fl (7.4-10.4); Platelet Count Result 328 k/mm3 (150-375); Red Blood Count 5.03 M/mm3 (4.6-6.20); Red Cell Distribution Width 18.3 % (11.5-14.5); White Blood Count 15.3 K/mm3 (4.5-10.0)
[2020-02-07 05:04] LABS: Alanine Aminotransferase 452 U/L (4-50); Albumin Level 3.3 g/dL (3.5-5.1); Alkaline Phosphatase 293 U/L (38-126); Anion Gap 15.2 mmol/L (7-16); Aspartate Amino Transferase 278 U/L (17-59); Bilirubin,Total 2.3 mg/dL (0.2-1.3); Blood Urea Nitrogen 23 mg/dL (9-20); Calcium 8.5 mg/dL (8.4-10.2); Carbon Dioxide 27 mmol/L (22-30); Chloride 94 mmol/L (98-107); Estimated CRCL calculation 117 ml/min; Estimated Glomerular Filt Rate > 60; Glucose 145 mg/dL (75-110); Magnesium 2.2 mg/dL (1.6-2.3); Potassium 4.2 mmol/L (3.4-5.0); Sodium 132 mmol/L (137-145)
[2020-02-07] MEDS: METOPROLOL TARTRATE 25 MG TABLET 75 MG PO ×3 (05:56→21:51)
[2020-02-07] MEDS: FUROSEMIDE 40 MG TABLET PO (08:22)
[2020-02-07] MEDS: LIDOCAINE 5% PATCH 1 PATCH TOPICAL (08:22)
[2020-02-07] MEDS: APIXABAN 5 MG TABLET PO ×2 (08:22→21:43)
[2020-02-07 09:03] LABS: Glucose Point of Care 141 (65-105)
--- NOTE | 2020-02-07 10:33 | PCOTNOTE ---
Attempted to see patient this am. Nursing stated patient may be seen without restrictions and His heart rate is better today. Upon entering room, pt's heart rate ranged from 122 to 157 at rest. Pt not seen for this reason. Notified RN, who reported, Oh yeah, it was much better earlier. Low 100's when I gave him his medicine.
--- NOTE | 2020-02-07 10:44 | WPDGIPROGNO ---
Progress Note: A&P Additional Plan Patient appears unchanged. Significant dysarthria and left hemiparesis persists. Physical exam reveals patient to be alert. Left hemiparesis noted. Left facial droop. HEENT exam is anicteric. Lungs are clear. Heart without murmur. Abdomen bowel sounds are present soft nontender with no organomegaly. Labs reveal total bilirubin 2.3, AST 228, ALT 452, alk-phos 293. Impression 1. Status post CVA period with left hemiparesis. 2. Atrial fibrillation. Anticoagulated in with Eliquis. 3. Elevated LFTs. Hepatitis serologies are negative. Etiology unclear but may be related to passive congestion from CHF. Continue monitor LFTs closely at this time. Right upper quadrant ultrasound is normal. Subjective Date/time seen: 02/07/20 10:44 Objective Data Vital Signs Vital Signs: Vital Signs - 24 hr 02/06/20 12:00 02/06/20 13:41 02/06/20 14:00 Temperature 98.2 F Pulse Rate 137 H 149 H 132 H Respiratory Rate 18 Blood Pressure 115/86 Pulse Oximetry 95 02/06/20 16:00 02/06/20 18:00 02/06/20 20:00 Temperature 98.2 F Pulse Rate 132 H 153 H 160 H Respiratory Rate 18 Blood Pressure 114/85 Pulse Oximetry 92 02/06/20 20:17 02/06/20 20:33 02/06/20 22:00 Temperature 96.8 F L Pulse Rate 151 H 160 H 152 H Respiratory Rate 20 Blood Pressure 152/102 H Pulse Oximetry 96 02/07/20 00:00 02/07/20 00:12 02/07/20 02:00 Temperature 96.1 F L Pulse Rate 154 H 85 148 H Respiratory Rate 18 Blood Pressure 128/97 H Pulse Oximetry 94 02/07/20 03:51 02/07/20 04:36 02/07/20 05:56 Temperature 97.1 F L Pulse Rate 151 H 138 H 144 H Respiratory Rate 18 Blood Pressure 129/74 Pulse Oximetry 95 02/07/20 06:00 02/07/20 08:00 Temperature 97.2 F L Pulse Rate 140 H 145 H Respiratory Rate 18 Blood Pressure 132/96 H Pulse Oximetry 97 Intake/Output Intake/Output: Intake & Output 02/04/20 02/05/20 02/06/20 02/07/20 23:59 23:59 23:59 23:59 Intake Total 1540 2110 250 Output Total 1000 725 975 450 Balance 540 1385 -725 -450 Meds/Results Medications: Active Medications Generic Name Dose Route Start Last Admin Trade Name Freq PRN Reason Stop Dose Admin Alprazolam 0.25 mg 02/04/20 18:04 02/04/20 21:11 Xanax PO 0.25 mg HS PRN Administration Anxiety Apixaban 5 mg 02/04/20 21:00 02/07/20 08:22 Eliquis PO 5 mg Q12HR NADYA Administration Atorvastatin Calcium 40 mg 02/03/20 21:00 02/06/20 21:38 Lipitor PO 40 mg HS NADYA Administration Dextrose 12.5 gm 02/03/20 18:56 Dextrose 50% Syringe IV PUSH PRN PRN Hypoglycemia Protocol Furosemide 40 mg 02/04/20 09:00 02/07/20 08:22 Lasix Tablet PO 40 mg DAILY NADYA Administration Glucagon 1 mg 02/03/20 18:56 Glucagon For Inj IM PRN PRN Hypoglycemia Protocol Glucose 15 gm 02/03/20 18:56 Glutose 15 PO PRN PRN Hypoglycemia Protocol Dextrose 1,000 mls @ 100 mls/hr 02/03/20 18:56 Dextrose 5% 1,000 Ml IVPB PRN PRN Hypoglycemia Protocol Insulin Aspart 2 - 5 units 02/04/20 08:00 02/07/20 08:23 Novolog SUB-Q Not Given T[facility] Protocol Lidocaine 1 patch 02/04/20 09:00 02/07/20 08:22 Lidoderm TOPICAL 1 patch DAILY NADYA Administration Metoprolol Tartrate 75 mg 02/05/20 22:00 02/07/20 05:56 Lopressor PO 75 mg Q8HR NADYA Administration Midazolam HCl 2 mg 02/06/20 16:00 Versed IV PUSH Q5M PRN Cardioversion/NEY Ondansetron HCl 4 mg 02/03/20 18:49 Zofran Inj IV PUSH Q6H PRN Nausea And Vomiting Polyethylene Glycol 17 gm 02/03/20 18:55 Miralax PO DAILY PRN Constipation Senna/Docusate Sodium 1 tab 02/03/20 18:55 Senokot S Tablet PO HS PRN Constipation Sodium Chloride 1 spray 02/03/20 18:55 [place] Nasal [place] NASAL Q30M PRN Dry Nasal Passages [place]
--- NOTE | 2020-02-07 11:50 | WPDMODSED ---
Moderate Sedation Note-Pt Data Patient Data Diagnosis: Persistent atrial flutter with RVR, patient with systemic anticoagulation since the onset of his arrhythmia cardiomyopathy with ejection fraction 30-35% by echo recent CVA Present Complaint: mild dyspnea Procedure to be performed/Plan: DC cardioversion Allergies Allergy/AdvReac Type Severity Reaction Status Date / Time No Known Allergies Allergy Verified 01/31/20 20:22 Home Medications Medication Instructions Recorded Confirmed Type aspirin 81 mg PO DAILY 01/31/20 02/03/20 History atorvastatin 40 mg PO HS 01/31/20 02/03/20 History furosemide 40 mg PO DAILY 01/31/20 02/03/20 History heparin (porcine) 5,000 unit SUBCUT Q8H 01/31/20 02/03/20 History lidocaine 1 patch TOPICAL DAILY 01/31/20 02/03/20 History metformin 1,000 mg PO BID 01/31/20 02/03/20 History metoprolol succinate 25 mg PO DAILY 01/31/20 02/03/20 History polyethylene glycol 3350 17 g PO DAILY PRN 01/31/20 02/03/20 History sennosides-docusate sodium [Senna 1 tab-cap PO HS PRN 01/31/20 02/03/20 History with Docusate Sodium] sodium chloride [[place] Nasal] 1 spray INTRANASAL Q30M PRN 01/31/20 02/03/20 History tamsulosin 0.8 mg PO HS 01/31/20 02/03/20 History Current Medications: Active Medications Alprazolam (Xanax) 0.25 mg PO HS PRN PRN Reason: Anxiety Last Admin: 02/04/20 21:11 Dose: 0.25 mg Documented by: Apixaban (Eliquis) 5 mg PO Q12HR [facility] Last Admin: 02/07/20 08:22 Dose: 5 mg Documented by: Atorvastatin Calcium (Lipitor) 40 mg PO HS [facility] Last Admin: 02/06/20 21:38 Dose: 40 mg Documented by: Dextrose (Dextrose 50% Syringe) 12.5 gm IV PUSH PRN PRN; Protocol PRN Reason: Hypoglycemia Furosemide (Lasix Tablet) 40 mg PO DAILY [facility] Last Admin: 02/07/20 08:22 Dose: 40 mg Documented by: Glucagon (Glucagon For Inj) 1 mg IM PRN PRN; Protocol PRN Reason: Hypoglycemia Glucose (Glutose 15) 15 gm PO PRN PRN; Protocol PRN Reason: Hypoglycemia Dextrose (Dextrose 5% 1,000 Ml) 1,000 mls @ 100 mls/hr IVPB PRN PRN; Protocol PRN Reason: Hypoglycemia Insulin Aspart (Novolog) 2 - 5 units SUB-Q TIDWM NADYA; Protocol Last Admin: 02/07/20 08:23 Dose: Not Given Documented by: Lidocaine (Lidoderm) 1 patch TOPICAL DAILY [facility] Last Admin: 02/07/20 08:22 Dose: 1 patch Documented by: Metoprolol Tartrate (Lopressor) 75 mg PO Q8HR [facility] Last Admin: 02/07/20 05:56 Dose: 75 mg Documented by: Midazolam HCl (Versed) 2 mg IV PUSH Q5M PRN PRN Reason: Cardioversion/NEY Ondansetron HCl (Zofran Inj) 4 mg IV PUSH Q6H PRN PRN Reason: Nausea And Vomiting Polyethylene Glycol (Miralax) 17 gm PO DAILY PRN PRN Reason: Constipation Senna/Docusate Sodium (Senokot S Tablet) 1 tab PO HS PRN PRN Reason: Constipation Sodium Chloride ([place] Nasal [place]) 1 spray NASAL Q30M PRN PRN Reason: Dry Nasal Passages Tamsulosin HCl (Flomax) 0.8 mg PO HS [facility] Last Admin: 02/06/20 21:38 Dose: 0.8 mg Documented by: Sedation/Anesthesia: No previous sedation/anesthesia problems (including family history). [facility] Past Medical History Medical History BPH (benign prostatic hyperplasia) Cerebrovascular accident (CVA) involving right cerebral hemisphere Diabetes mellitus Hyperlipidemia Hypertension Ischemic optic neuropathy Systolic congestive heart failure last EF 30-35%. Surgical History Surgical History H/O eye surgery 1968 History of left hip replacement 2016 History of tonsillectomy Hx of cholecystectomy 1993 Family History Family History Father Acute myocardial infarction Cerebrovascular accident Mother Chronic a-fib Other Unknown family medical history Social History Social History Social History: the patient lives home alone. His father is a durable power attorney at law for a
--- NOTE | 2020-02-07 12:00 | WPDCARDPROC ---
Cardiac Cath Procedure Note Date of procedure:: 02/07/20 Performing physician:: Vince Shafer MD Indication:: persistent atrial flutter left ventricular systolic dysfunction recent CVA Brief clinical history:: 69-year-old patient who was on rehab following CVA admission in [place]. He was noted to be go into atrial flutter with RVR was transferred to the hospital for further evaluation. He persistent atrial flutter despite beta-bette treatment. Since the onset of the arrhythmia he has been anticoagulated. Plans are now to attempt electrical cardioversion Procedure Procedure performed:: DC cardioversion Sedation/Medication given:: propofol 40 mg IV push Estimated blood loss:: no blood loss Procedure note:: patient was lethargic at the beginning of the procedure so he was given a small dose of propofol, 40 mg was given intravenously after this he was nicely sedated. The defibrillator patches were placed in the AP position any received a synchronized 200 joule countershock restoring normal sinus rhythm Findings:: successful cardioversion is detailed above Conclusion:: successful DC cardioversion restoring sinus rhythm, terminating atrial flutter using 200 joules x1 shock Vince Shafer MD [facility]
--- NOTE | 2020-02-07 12:02 | PM.PNCARD ---
Progress Note: A&P Additional Plan 69-year-old patient with known left ventricular systolic dysfunction by ECHO at 3 different hospitals. He was here at [facility] rehabbing from stroke when he went into atrial flutter with rapid ventricular response. Patient underwent DC cardioversion today restoring normal sinus rhythm. Given his cardiomyopathy he will unlikely maintain sinus rhythm without medications so amiodarone will be started at this time ARB or Trey inhibitor will be initiated as tolerated Vince Shafer MD [facility] Subjective Date/time seen: date of service:02/07/20 12:02 Interval history: Follow-up visit in this 69-year-old man with recent to CVA Evaluated at [facility], hemiplegia and found to be in AFib with RVR on rehab service and transferred to the hospital ICU for management. The atrial fibrillation appears to be of new onset 02/03/2020 a.m. and anticoagulation started 02/04/2020 pm. 02/05/2020 Visit: Patient is asymptomatic seems to be alert and responsive answers questions slowly but appropriately. Intravenous esmolol is infusing as per Dr. Link's recommendations from yesterday; change to metoprolol 75 mg b.i.d. Systemic anticoagulation in the form of apixaban has been initiated. Date of service 02/06/2020: Patient has been transferred to IMU but since being off the esmolol drip and taking po metoprolol 75 mg q.8 hours his AFib rate has been up in the 140s fairly consistently. Patient is denying any problems with shortness of breath, chest pain or palpitations. Denies any prior history of heart disease or atrial fibrillation. Date of service 02/06/2020: [facility] taken [facility] where he was sedated with propofol and cardioverted with 200 joules today restoring normal sinus rhythm. In the setting of significant cardiomyopathy I will start amiodarone in hopes of maintaining sinus rhythm. Continue systemic anticoagulation with apixaban. Records reviewed: [address] Lazaro Quintanilla, [facility], for trace aortic insufficiency, metabolic syndrome, diabetes, dyslipidemia, obesity, sleep apnea intolerant of CPAP and mild pulmonary hypertension. Records from [facility] 01/27/2020 01/31/2020. 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 Follow-up CT did not show any hemorrhagic conversion. Aspirin resumed.Echo EF 30-35%, severe LV dysfunction, mild LV enlargement and LVH, mild AI/MR, negative bubble study. EKG on admission showed NSR, as did an EKG on 01/29/2020. Frequent PVCs. Exam Const: General: comfortable Other: Comfortable but very lethargic man supine in bed HENMT: Mouth: Yes moist mucous membranes Eyes: Sclera: sclerae normal Pupils: Equal, round and reactive pupils present Neck: Neck: supple and no JVD Thyroid: thyroid normal Other: normal carotid upstrokes no bruits Resp: Effort & Inspection: normal respiratory effort Auscultation: clear to auscultation bilaterally Cardio: Rate: regular rate Rhythm: regular rhythm GI: Auscultation: normal bowel sounds Skin: General skin exam: normal color Neuro: Cognition (Neuro): abnormal cognition Extrem: General: normal to inspection Objective Data Vital Signs Vital Signs: Vital Signs - 24 hr 02/06/20 13:41 02/06/20 14:00 02/06/20 16:00 Temperature 36.8 C Pulse Rate 149 H 132 H 132 H Respiratory Rate 18 Blood Pressure 114/85 Pulse Oximetry 92 02/06/20 18:00 02/06/20 20:00 02/06/20 20:17 Temperature 36.0 C L Pulse Rate 153 H 160 H 151 H Respiratory Rate 20 Blood Pressure 152/102 H Pulse Oximetry 96 02/06/20 20:33 02/06/20 22:00 02/07/20 00:00 Temperature Pulse Rate 160 H 152 H 154 H Respiratory Rate Blood Pressure Pulse Oximetry 02/07/20 00:12 02/07/20 02:00 02/07/20 03:51 Temperature 35.6 C L Puls
[2020-02-07 13:05] LABS: Glucose Point of Care 147 (65-105)
[2020-02-07] MEDS: AMIODARONE HCL 200 MG TABLET PO (13:42)
--- NOTE | 2020-02-07 14:40 | ECG_ITS ---
Measurements Intervals [place] Rate: 79 P: 59 NV: 167 QRS: -31 QRSD: 88 T: 195 QT: 349 QTc: 402 Interpretive Statements SINUS RHYTHM VENTRICULAR COUPLET AND VENTRICULAR BIGEMINY LEFT AXIS DEVIATION DELAYED PRECORDIAL R/S TRANSITION T WAVE ABNORMALITY IN ANTERIOLATERAL LEADS- CONSIDER ISCHEMIA ABNORMAL ECG Electronically Signed On 02-07-2020 15:29:06 CDT by Juan Luis Merino D.O.
--- NOTE | 2020-02-07 16:25 | PM.IMPN ---
Progress Note: A&P Assessment and Plan (1) Atrial fibrillation with RVR: Code(s): I48.91 - Unspecified atrial fibrillation Status: Acute Assessment and Plan: 02/07/20 16:25 patient is 69-year-old male with history of diabetes hypertension hyperlipidemia LV dysfunction with ejection fraction of 35% initially patient was seen at [facility] on January 27, 2020 and had a stroke patient was not treated with tPA as he was outside the window further treatment, from there patient was transferred to TRC at [facility], while in the TRC patient developed atrial fibrillation with RVR and he was transferred to ICU started the patient on diltiazem drip however due to poor LV function patient was switched over to esmolol and patient rate still trending high, patient seen by director of nursing will continue present managed, and being anticoagulated with Eliquis patient is seen by neurologist and he is okay with with anticoagulation and he is currently in IMU, today patient will be taken cardiac labor relations analyst for cardioversion will follow-up. today patient denies any complaint of palpitation chest pain shortness of breath palpitation fever or or chills, once the patient clinically stable in the rate is controlled will transfer the patient to [facility] (2) Elevated LFTs: Code(s): R79.89 - Other specified abnormal findings of blood chemistry Status: Acute Assessment and Plan: patient with elevated LFT etiology uncertain seen by GI will continue to trend patient is clinically stable (3) Systolic congestive heart failure: Code(s): I50.20 - Unspecified systolic (congestive) heart failure Status: Chronic Assessment and Plan: patient appears euvolemic (4) Cerebrovascular accident (CVA) involving right cerebral hemisphere: Code(s): I63.9 - Cerebral infarction, unspecified Status: Chronic Assessment and Plan: once patient clinically stable will transfer the patient to [facility], patient is seen by neurologist Subjective Date/time seen: 02/07/20 16:25 patient is 69-year-old male with history of diabetes hypertension hyperlipidemia LV dysfunction with ejection fraction of 35% initially patient was seen at [facility] on January 27, 2020 and had a stroke patient was not treated with tPA as he was outside the window further treatment, from there patient was transferred to TR at [facility], while in the TRC patient developed atrial fibrillation with RVR and he was transferred to ICU started the patient on diltiazem drip however due to poor LV function patient was switched over to esmolol and patient rate still trending high, patient seen by director of nursing will continue present managed, and being anticoagulated with Eliquis patient is seen by neurologist and he is okay with with anticoagulation and he is currently in IMU, today patient will be taken cardiac labor relations analyst for cardioversion will follow-up. today patient denies any complaint of palpitation chest pain shortness of breath palpitation fever or or chills, once the patient clinically stable in the rate is controlled will transfer the patient to [facility] Review of Systems Review of Systems: All systems reviewed & are unremarkable except as noted in HPI and below Exam Const: General: comfortable and no acute distress HENMT: General nose exam: Normal nares present Mouth: Yes moist mucous membranes Eyes: Sclera: sclerae normal Neck: Neck: supple Resp: Other: bilateral fair air entry with rales and rhonchi Cardio: Other: irregularly irregular tachy GI: Auscultation: normal bowel sounds Skin: General skin exam: normal color Neuro: Speech: normal speech Sensory Exam: normal sensation Extrem: General: normal to inspection Psych: Affect: Anxious affect present Objective Data Vital Signs Vital Signs: Vital Signs - 24 hr 02/06/20 18:00 02/06/20 20:00 02/06/20 20:17 Temperature 96.8 F L Pulse Rate 153 H 160 H 151 H Re
[2020-02-07 16:47] LABS: Glucose Point of Care 156 (65-105)
[2020-02-07 20:50] LABS: Glucose Point of Care 146 (65-105)
[2020-02-07] MEDS: ATORVASTATIN 40 MG TABLET PO (21:43)
[2020-02-07] MEDS: TAMSULOSIN HCL 0.4 MG CAPSULE 0.8 MG PO (21:52)
[2020-02-08] VITALS (18 sets, daily range): BP systolic 108–143; BP diastolic 69–87; PULSE 69–85; RESP 12–18; TEMP 35.8–36.6; O2SAT 93–97
[2020-02-08 04:28] LABS: Hematocrit 36.5 % (42.0-52.0); Hemoglobin 11.1 g/dL (14.0-18.0); Mean Corpuscular HGB Conc 30.4 g/dl (32-36); Mean Corpuscular Hemoglobin 22.2 pg (26-34); Mean Corpuscular Volume 72.9 fl (80-100); Mean Platelet Volume 10.2 fl (7.4-10.4); Platelet Count Result 355 k/mm3 (150-375); Red Blood Count 5.01 M/mm3 (4.6-6.20); Red Cell Distribution Width 18.2 % (11.5-14.5); White Blood Count 13.6 K/mm3 (4.5-10.0)
[2020-02-08 04:44] LABS: Alanine Aminotransferase 615 U/L (4-50); Albumin Level 3.4 g/dL (3.5-5.1); Alkaline Phosphatase 354 U/L (38-126); Anion Gap 11 mmol/L (8-16); Aspartate Amino Transferase 483 U/L (17-59); Bilirubin,Total 2.9 mg/dL (0.2-1.3); Blood Urea Nitrogen 25 mg/dL (9-20); Calcium 8.4 mg/dL (8.4-10.2); Carbon Dioxide 25 mmol/L (22-30); Chloride 91 mmol/L (98-107); Estimated CRCL calculation 117 ml/min; Estimated Glomerular Filt Rate > 60; Glucose 140 mg/dL (75-110); Magnesium 2.2 mg/dL (1.6-2.3); Sodium 127 mmol/L (137-145)
[2020-02-08] MEDS: METOPROLOL TARTRATE 25 MG TABLET 75 MG PO ×3 (06:30→21:29)
[2020-02-08 07:46] LABS: Glucose Point of Care 142 (65-105)
--- NOTE | 2020-02-08 08:00 | ECG_ITS ---
Measurements Intervals [place] Rate: 82 P: DC: 0 QRS: -18 QRSD: 92 T: 205 QT: 396 QTc: 464 Interpretive Statements SINUS RHYTHM ATRIAL AND VENTRICULAR PREMATURE COMPLEXES DELAYED PRECORDIAL R/S TRANSITION NONSPECIFIC T-WAVE ABNORMALITY- DIFFUSE LEADS ABNORMAL ECG Electronically Signed On 02-08-2020 9:03:45 CDT by Juan Luis Merino D.O.
[2020-02-08] MEDS: FUROSEMIDE 40 MG TABLET PO (08:32)
[2020-02-08] MEDS: AMIODARONE HCL 200 MG TABLET PO (08:32)
[2020-02-08] MEDS: LIDOCAINE 5% PATCH 1 PATCH TOPICAL (08:32)
[2020-02-08] MEDS: APIXABAN 5 MG TABLET PO ×2 (08:32→21:29)
--- NOTE | 2020-02-08 08:42 | WPDGIPROGNO ---
Progress Note: A&P Additional Plan Patient alert this morning. Remains dysarthric with left hemiparesis. Had cardioversion of atrial fibrillation yesterday. Physical exam reveals abdomen to be soft. Bowel sounds are present nontender with no organomegaly. Labs reveal elevation of LFTs. Total bilirubin 2.9, AST 483, ALT 615, alk-phos 354. Impression 1. Elevated LFTs. These continue to be a concern. They continue to rise. Likely abrupt elevation today secondary to cardioversion yesterday patient now on amiodarone. We will continue monitor LFTs closely. Hepatitis serologies are negative ultrasound unremarkable. Consider a CT scan of the liver when possible as well. 2. CVA with left hemiparesis 3. Atrial fibrillation. Now status post cardioversion. Subjective Date/time seen: 02/08/20 08:42 Objective Data Vital Signs Vital Signs: Vital Signs - 24 hr 02/07/20 10:00 02/07/20 11:50 02/07/20 12:00 Temperature 98.8 F Pulse Rate 90 140 H 90 Respiratory Rate 22 H 18 Blood Pressure 152/79 H Pulse Oximetry 94 96 02/07/20 12:02 02/07/20 12:15 02/07/20 12:30 Temperature Pulse Rate 76 77 81 Respiratory Rate 24 H 23 H 23 H Blood Pressure 113/60 122/91 H 126/85 Pulse Oximetry 94 95 95 02/07/20 12:44 02/07/20 13:04 02/07/20 13:42 Temperature 97.8 F Pulse Rate 91 87 90 Respiratory Rate 21 H 18 Blood Pressure 142/95 H 140/76 Pulse Oximetry 94 96 02/07/20 14:00 02/07/20 16:00 02/07/20 16:41 Temperature 97.8 F Pulse Rate 91 91 89 Respiratory Rate 18 22 H Blood Pressure 134/58 L Pulse Oximetry 96 99 02/07/20 18:00 02/07/20 20:00 02/07/20 21:00 Temperature 97.5 F L Pulse Rate 90 85 64 Respiratory Rate 18 18 Blood Pressure 135/101 H Pulse Oximetry 96 96 02/07/20 21:51 02/07/20 22:00 02/08/20 00:00 Temperature Pulse Rate 75 82 79 Respiratory Rate 18 Blood Pressure Pulse Oximetry 95 02/08/20 00:33 02/08/20 01:48 02/08/20 04:00 Temperature 97.8 F Pulse Rate 83 80 81 Respiratory Rate 18 18 Blood Pressure 143/87 H Pulse Oximetry 95 96 02/08/20 05:00 02/08/20 06:00 02/08/20 06:30 Temperature 97.0 F L Pulse Rate 81 77 73 Respiratory Rate 18 Blood Pressure 140/73 Pulse Oximetry 96 02/08/20 08:32 Temperature Pulse Rate 73 Respiratory Rate Blood Pressure Pulse Oximetry Intake/Output Intake/Output: Intake & Output 02/05/20 02/06/20 02/07/20 02/08/20 23:59 23:59 23:59 23:59 Intake Total 2110 250 540 Output Total 937 255 020 440 Balance 4655 -725 -385 -400 Meds/Results Medications: Active Medications Generic Name Dose Route Start Last Admin Trade Name Freq PRN Reason Stop Dose Admin Alprazolam 0.25 mg 02/04/20 18:04 02/04/20 21:11 Xanax PO 0.25 mg HS PRN Administration Anxiety Amiodarone HCl 200 mg 02/07/20 12:10 02/08/20 08:32 Pacerone PO 200 mg DAILY@0800 NADYA Administration Apixaban 5 mg 02/04/20 21:00 02/08/20 08:32 Eliquis PO 5 mg Q12HR NADYA Administration Atorvastatin Calcium 40 mg 02/03/20 21:00 02/07/20 21:43 Lipitor PO 40 mg HS NADYA Administration Dextrose 12.5 gm 02/03/20 18:56 Dextrose 50% Syringe IV PUSH PRN PRN Hypoglycemia Protocol Furosemide 40 mg 02/04/20 09:00 02/08/20 08:32 Lasix Tablet PO 40 mg DAILY NADYA Administration Glucagon 1 mg 02/03/20 18:56 Glucagon For Inj IM PRN PRN Hypoglycemia Protocol Glucose 15 gm 02/03/20 18:56 Glutose 15 PO PRN PRN Hypoglycemia Protocol Dextrose 1,000 mls @ 100 mls/hr 02/03/20 18:56 Dextrose 5% 1,000 Ml IVPB PRN PRN Hypoglycemia Protocol Insulin Aspart 2 - 5 units 02/04/20 08:00 02/08/20 08:23 Novolog SUB-Q Not Given TIDWM NADYA Protocol Lidocaine 1 patch 02/04/20 09:00 02/08/20 08:32 Lidoderm TOPICAL 1 patch DAILY NADYA Administration Metoprolol Tartrate 75 mg
--- NOTE | 2020-02-08 10:56 | PM.PNCARD ---
Progress Note: A&P Assessment and Plan (1) Atrial fibrillation: Code(s): I48.91 - Unspecified atrial fibrillation Status: Acute Assessment and Plan: Has been anticoagulated with Eliquis since p.m. No bleeding issues. Cardioverted 02/07/2020. Maintaining NSR with metoprolol and amiodarone (started 02/07/2020). Back to [facility] soon? (2) Systolic congestive heart failure: Code(s): I50.20 - Unspecified systolic (congestive) heart failure Status: Chronic Assessment and Plan: Cardiomyopathy with a recent TTE from outside hospital reported show LVEF 30-35%. Does not appear to be in acute CHF or volume overloaded. Tolerating p.o. metoprolol Will add lisinopril 5 mg qd. (3) Cerebrovascular accident (CVA) involving right cerebral hemisphere: Code(s): I63.9 - Cerebral infarction, unspecified Status: Chronic Assessment and Plan: Perhaps caused by Paroxysmal AFib. Management as per primary team, Neurology Anticoagulation Statin Rehab, PT OT, speech evaluation (4) Elevated LFTs: Code(s): R79.89 - Other specified abnormal findings of blood chemistry Status: Acute Assessment and Plan: rising liver enzymes of uncertain etiology. Gallbladder ultrasound negative. No known episodes of hypotension. Amio started after LFTs were elevated. Eliquis is metabolized primarily hepatically; may need to change to Xarelto if significant liver dysfunction. Subjective Date/time seen: 02/08/20 10:56 Interval history: Follow-up visit in this 69-year-old man with recent to CVA Evaluated at [facility], hemiplegia and found to be in AFib with RVR on rehab service and transferred to the hospital ICU for management. The atrial fibrillation appears to be of new onset 02/03/2020 a.m. and anticoagulation started 02/04/2020 pm. 02/05/2020 Visit: Patient is asymptomatic seems to be alert and responsive answers questions slowly but appropriately. Intravenous esmolol is infusing as per Dr. Link's recommendations from yesterday; change to metoprolol 75 mg b.i.d. Systemic anticoagulation in the form of apixaban has been initiated. Visit 02/06/2020: Patient has been transferred to IMU but since being off the esmolol drip and taking po metoprolol 75 mg q.8 hours his AFib rate has been up in the 140s fairly consistently. Patient is denying any problems with shortness of breath, chest pain or palpitations. Denies any prior history of heart disease or atrial fibrillation. Visit 02/07/2020: Patient taken to the chest Pain Center where he was sedated with propofol and cardioverted with 200 joules today restoring normal sinus rhythm. In the setting of significant cardiomyopathy I will start amiodarone in hopes of maintaining sinus rhythm. Continue systemic anticoagulation with apixaban. Date of service 02/08/2020: Busy morning with therapies of cetera, worn out. No complaints of shortness of breath, chest pain or abdominal pain. Maintaining NSR. Denies any history of liver problems. Old Records: [address] Lazaro Quintanilla, [facility], for trace aortic insufficiency, metabolic syndrome, diabetes, dyslipidemia, obesity, sleep apnea intolerant of CPAP and mild pulmonary hypertension. Records from [facility] 01/27/2020 01/31/2020. 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 Follow-u
--- NOTE | 2020-02-08 11:05 | PM.IMPN ---
Progress Note: A&P Assessment and Plan (1) Atrial fibrillation with RVR: Code(s): I48.91 - Unspecified atrial fibrillation Status: Acute Assessment and Plan: 02/08/20 11:05 patient is 69-year-old male with history of diabetes hypertension hyperlipidemia LV dysfunction with ejection fraction of 35% initially patient was seen at [facility] on January 27, 2020 and had a stroke patient was not treated with tPA as he was outside the window further treatment, from there patient was transferred to TR at [facility], while in the TRC patient developed atrial fibrillation with RVR and he was transferred to ICU started the patient on diltiazem drip however due to poor LV function patient was switched over to esmolol and patient rate still trending high, patient seen by static balancer will continue present managed, and being anticoagulated with Eliquis patient is seen by neurologist and he is okay with with anticoagulation and he is currently in IMU, 0n 8/7 patient was taken to cardiac freezer laboratory technician and had cardioversion and it was successful and now patient in sinus rhythm rate is controlled, today patient denies any complaint of palpitation chest pain shortness of breath palpitation fever or or chills, once the patient clinically stable and the rate is controlled will transfer the patient to [facility] (2) Elevated LFTs: Code(s): R79.89 - Other specified abnormal findings of blood chemistry Status: Acute Assessment and Plan: patient with elevated LFT etiology uncertain seen by GI will continue to trend patient is clinically stable (3) Systolic congestive heart failure: Code(s): I50.20 - Unspecified systolic (congestive) heart failure Status: Chronic Assessment and Plan: patient appears euvolemic (4) Cerebrovascular accident (CVA) involving right cerebral hemisphere: Code(s): I63.9 - Cerebral infarction, unspecified Status: Chronic Assessment and Plan: once patient clinically stable will transfer the patient to [facility], patient is seen by neurologist Subjective Date/time seen: 02/08/20 11:05 patient is 69-year-old male with history of diabetes hypertension hyperlipidemia LV dysfunction with ejection fraction of 35% initially patient was seen at [facility] on January 27, 2020 and had a stroke patient was not treated with tPA as he was outside the window further treatment, from there patient was transferred to TR at [facility], while in the TRC patient developed atrial fibrillation with RVR and he was transferred to ICU started the patient on diltiazem drip however due to poor LV function patient was switched over to esmolol and patient rate still trending high, patient seen by static balancer will continue present managed, and being anticoagulated with Eliquis patient is seen by neurologist and he is okay with with anticoagulation and he is currently in IMU, 0n 02/06 patient was taken to cardiac freezer laboratory technician and had cardioversion and it was successful and now patient in sinus rhythm rate is controlled, today patient denies any complaint of palpitation chest pain shortness of breath palpitation fever or or chills, once the patient clinically stable and the rate is controlled will transfer the patient to [facility] Review of Systems Review of Systems: All systems reviewed & are unremarkable except as noted in HPI and below Exam Const: General: comfortable and no acute distress HENMT: General nose exam: Normal nares present Eyes: General: appearance normal, both eyes and all related structures Sclera: sclerae normal Neck: Neck: supple Resp: Effort & Inspection: normal respiratory effort Auscultation: clear to auscultation bilaterally Cardio: Rate: regular rate Rhythm: regular rhythm GI: Auscultation: normal bowel sounds Skin: General skin exam: normal color Neuro: Speech: normal speech Sensory Exam: normal sensation Extrem: General: normal to inspection
[2020-02-08 11:33] LABS: Glucose Point of Care 151 (65-105)
[2020-02-08] MEDS: lisinopriL 5 MG TABLET PO (13:24)
[2020-02-08 17:09] LABS: Glucose Point of Care 163 (65-105)
--- NOTE | 2020-02-08 17:53 | WPDNEUROPN ---
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 - Ischemic optic neuropathy, unspecified eye Status: Acute (4) BPH (benign prostatic hyperplasia): Code(s): N40.0 - Benign prostatic hyperplasia without lower urinary tract symptoms Status: Chronic (5) Systolic congestive heart failure: Code(s): I50.20 - Unspecified systolic (congestive) heart failure Status: Chronic (6) Hyperlipidemia: Code(s): E78.5 - Hyperlipidemia, unspecified Status: Chronic (7) Cerebrovascular accident (CVA) involving right cerebral hemisphere: Code(s): I63.9 - Cerebral infarction, unspecified Status: Chronic (8) Diabetes mellitus: Code(s): E11.9 - Type 2 diabetes mellitus without complications Status: Chronic (9) Hypertension: Code(s): I10 - Essential (primary) hypertension Status: Chronic Additional Plan the patient can be continued on the present management hoping that he will be stabilized from the cardiac standpoint and really able to receive the acute extensive PT OT gait training along with speech soon Review of Systems Review of Systems: All systems reviewed & are unremarkable except as noted in HPI and below Exam Const: General: comfortable and no acute distress HENMT: General nose exam: Normal nares present Mouth: Yes moist mucous membranes Eyes: General: appearance normal, both eyes and all related structures Neck: Neck: supple and no JVD Resp: Effort & Inspection: normal respiratory effort Auscultation: clear to auscultation bilaterally Cardio: Other: cardiac rhythm is normal and heart rate is within the normal range GI: Auscultation: normal bowel sounds Skin: General skin exam: normal color and no rashes or lesions noted Neuro: Other: patient is awake and alert follows all commands with fluent speech and left-sided hemiparesis which is relatively more obvious as the patient has been sick from the cardiopulmonary standpoint in the previous several days Extrem: General: normal to inspection Psych: Other: mild memory deficit Objective Data Vital Signs Vital Signs: Vital Signs - 24 hr 02/07/20 18:00 02/07/20 20:00 02/07/20 21:00 Temperature 36.4 C L Pulse Rate 90 85 64 Respiratory Rate 18 18 Blood Pressure 135/101 H Pulse Oximetry 96 96 02/07/20 21:51 02/07/20 22:00 02/08/20 00:00 Temperature Pulse Rate 75 82 79 Respiratory Rate 18 Blood Pressure Pulse Oximetry 95 02/08/20 00:33 02/08/20 01:48 02/08/20 04:00 Temperature 36.6 C Pulse Rate 83 80 81 Respiratory Rate 18 18 Blood Pressure 143/87 H Pulse Oximetry 95 96 02/08/20 05:00 02/08/20 06:00 02/08/20 06:30 Temperature 36.1 C L Pulse Rate 81 77 73 Respiratory Rate 18 Blood Pressure 140/73 Pulse Oximetry 96 02/08/20 07:30 02/08/20 08:00 02/08/20 08:32 Temperature 36.3 C L Pulse Rate 70 69 73 Respiratory Rate 12 Blood Pressure 110/77 Pulse Oximetry 97 02/08/20 10:00 02/08/20 12:00 02/08/20 13:24 Temperature 36.1 C L Pulse Rate 76 80 75 Respiratory Rate 18 Blood Pressure 118/70 Pulse Oximetry 96 02/08/20 14:00 02/08/20 16:00 Temperature 35.8 C L Pulse Rate 76 80 Respiratory Rate 16 Blood Pressure 108/71 Pulse Oximetry 95 Intake/Output Intake/Output: Intake & Output 02/05/20 02/06/20 02/07/20 02/08/20 23:59 23:59 23:59 23:59 Intake Total 2110 250 540 840 Output Total 374 915 025 5729 Balance 1385 -725 -385 -210 Meds/Results Medications: Active Medications Generic Name Dose Route Start Last Admin Trade Name Freq PRN Reason Stop Dose Admin Alprazolam 0.25 mg 02/04/20 18:04 02/04/20 21:
--- NOTE | 2020-02-08 18:26 | PC.NURSE ---
This patient, Sumit Ross, was transferred to [259 2n med ] on 02/08/20 at 1815. Personal belongings sent with patient. Belongings list checked and signed with receiving [2nd med ]. Report given to [ cyndi jarvis rn]. Appropriate documentation sent with patient.
--- NOTE | 2020-02-08 18:32 | PC.NURSE ---
Received patient from IMU via bed with IMU staff. Patient settled in bed
[2020-02-08 20:35] LABS: Glucose Point of Care 169 (65-105)
[2020-02-08] MEDS: ALPRAZolam 0.25 MG TABLET PO (21:28)
[2020-02-08] MEDS: ATORVASTATIN 40 MG TABLET PO (21:28)
[2020-02-08] MEDS: TAMSULOSIN HCL 0.4 MG CAPSULE 0.8 MG PO (21:29)
[2020-02-09] VITALS (15 sets, daily range): BP systolic 106–118; BP diastolic 56–85; PULSE 60–96; RESP 18–20; TEMP 35.7–36.4; O2SAT 93–97
[2020-02-09 05:13] LABS: Hematocrit 33.8 % (42.0-52.0); Hemoglobin 10.2 g/dL (14.0-18.0); Mean Corpuscular HGB Conc 30.2 g/dl (32-36); Mean Platelet Volume 9.6 fl (7.4-10.4); Platelet Count Result 349 k/mm3 (150-375); Red Blood Count 4.63 M/mm3 (4.6-6.20); White Blood Count 13.5 K/mm3 (4.5-10.0)
[2020-02-09 05:25] LABS: Alanine Aminotransferase 444 U/L (4-50); Albumin Level 2.9 g/dL (3.5-5.1); Alkaline Phosphatase 321 U/L (38-126); Anion Gap 6 mmol/L (8-16); Aspartate Amino Transferase 237 U/L (17-59); Bilirubin,Total 2.7 mg/dL (0.2-1.3); Blood Urea Nitrogen 19 mg/dL (9-20); Carbon Dioxide 29 mmol/L (22-30); Chloride 91 mmol/L (98-107); Estimated CRCL calculation 132 ml/min; Estimated Glomerular Filt Rate > 60; Glucose 119 mg/dL (75-110); Magnesium 2.1 mg/dL (1.6-2.3); Potassium 3.4 mmol/L (3.4-5.0); Sodium 126 mmol/L (137-145)
[2020-02-09] MEDS: METOPROLOL TARTRATE 25 MG TABLET 75 MG PO ×2 (06:33→13:56)
[2020-02-09 08:13] LABS: Glucose Point of Care 126 (65-105)
--- NOTE | 2020-02-09 08:25 | WPDGIPROGNO ---
Progress Note: A&P Additional Plan Patient clinically unchanged. Remains with dysarthria and left hemiparesis. Physical exam reveals abdomen to be benign. Lungs are clear. Heart without murmur. Abdomen bowel sounds present soft nontender with no obvious organomegaly. Labs reveal decline in LFTs slightly today. Total bilirubin 2.7, AST 237, ALT 444, alk-phos 321. Labs appear to have peaked and slowly declined to day. Impression 1. Elevated LFTs. Marked elevation after recent heart catheterization and cardioversion. Some elevation previously at the time of admissions raising question relation to hypotensive episode. plan is to continue monitor conservatively. Hepatitis serologies and ultrasound have been unremarkable. 2. CVA with left hemiparesis. 3. Atrial fibrillation status post cardioversion. Subjective Date/time seen: 02/09/20 08:25 Objective Data Vital Signs Vital Signs: Vital Signs - 24 hr 02/08/20 08:32 02/08/20 10:00 02/08/20 12:00 Temperature 97 F L Pulse Rate 73 76 80 Respiratory Rate 18 Blood Pressure 118/70 Pulse Oximetry 96 02/08/20 13:24 02/08/20 14:00 02/08/20 16:00 Temperature 96.5 F L Pulse Rate 75 76 80 Respiratory Rate 16 Blood Pressure 108/71 Pulse Oximetry 95 02/08/20 17:53 02/08/20 20:00 02/08/20 21:29 Temperature 97.6 F Pulse Rate 77 76 76 Respiratory Rate 18 Blood Pressure 111/69 Pulse Oximetry 93 02/09/20 00:00 02/09/20 04:15 02/09/20 06:00 Temperature 96.3 F L 97.0 F L Pulse Rate 70 71 69 Respiratory Rate 18 20 Blood Pressure 106/66 113/68 Pulse Oximetry 96 93 02/09/20 06:33 Temperature Pulse Rate 78 Respiratory Rate Blood Pressure Pulse Oximetry Intake/Output Intake/Output: Intake & Output 02/06/20 02/07/20 02/08/20 02/09/20 23:59 23:59 23:59 23:59 Intake Total 250 540 876 Output Total 361 379 5145 250 Balance -725 -385 -174 -250 Meds/Results Medications: Active Medications Generic Name Dose Route Start Last Admin Trade Name Freq PRN Reason Stop Dose Admin Alprazolam 0.25 mg 02/04/20 18:04 02/08/20 21:28 Xanax PO 0.25 mg HS PRN Administration Anxiety Amiodarone HCl 200 mg 02/07/20 12:10 02/08/20 08:32 Pacerone PO 200 mg DAILY@0800 NADYA Administration Apixaban 5 mg 02/04/20 21:00 02/08/20 21:29 Eliquis PO 5 mg Q12HR NADYA Administration Atorvastatin Calcium 40 mg 02/03/20 21:00 02/08/20 21:28 Lipitor PO 40 mg HS NADYA Administration Dextrose 12.5 gm 02/03/20 18:56 Dextrose 50% Syringe IV PUSH PRN PRN Hypoglycemia Protocol Furosemide 40 mg 02/04/20 09:00 02/08/20 08:32 Lasix Tablet PO 40 mg DAILY NADYA Administration Glucagon 1 mg 02/03/20 18:56 Glucagon For Inj IM PRN PRN Hypoglycemia Protocol Glucose 15 gm 02/03/20 18:56 Glutose 15 PO PRN PRN Hypoglycemia Protocol Dextrose 1,000 mls @ 100 mls/hr 02/03/20 18:56 Dextrose 5% 1,000 Ml IVPB PRN PRN Hypoglycemia Protocol Insulin Aspart 2 - 5 units 02/04/20 08:00 02/09/20 08:05 Novolog SUB-Q Not Given TIDWM [facility] Protocol Lidocaine 1 patch 02/04/20 09:00 02/08/20 08:32 Lidoderm TOPICAL 1 patch DAILY NADYA Administration Lisinopril 5 mg 02/08/20 11:45 02/08/20 13:24 Prinivil PO 5 mg QAM [facility] Administration Metoprolol Tartrate 75 mg 02/05/20 22:00 02/09/20 06:33 Lopressor PO 75 mg Q8HR NADYA Administration Ondansetron HCl 4 mg 02/03/20 18:49 Zofran Inj IV PUSH Q6H PRN Nausea And Vomiting Polyethylene Glycol 17 gm 02/03/20 18:55 Miralax PO DAILY PRN Constipation Senna/Docusate Sodium 1 tab 02/03/20 18:55 Senokot S Tablet PO HS PRN Constipation Sodium Chloride 1 spray 02/03/20 18:55 [place] Nasal [place] NASAL Q30M PRN Dry Nasal Passages Tamsulosin HCl 0.8 mg 02/03/20 21:00
[2020-02-09] MEDS: AMIODARONE HCL 200 MG TABLET PO (10:04)
[2020-02-09] MEDS: FUROSEMIDE 40 MG TABLET PO (10:05)
[2020-02-09] MEDS: lisinopriL 5 MG TABLET PO (10:05)
[2020-02-09] MEDS: APIXABAN 5 MG TABLET PO ×2 (10:05→20:15)
[2020-02-09] MEDS: LIDOCAINE 5% PATCH 1 PATCH TOPICAL (10:05)
--- NOTE | 2020-02-09 12:04 | PM.IMPN ---
Progress Note: A&P Assessment and Plan (1) Atrial fibrillation with RVR: Code(s): I48.91 - Unspecified atrial fibrillation Status: Acute Assessment and Plan: patient is 69-year-old male with history of diabetes hypertension hyperlipidemia LV dysfunction with ejection fraction of 35% initially patient was seen at [facility] on January 27, 2020 and had a stroke patient was not treated with tPA as he was outside the window further treatment, from there patient was transferred to [facility] at [facility], while in the TR patient developed atrial fibrillation with RVR and he was transferred to ICU started the patient on diltiazem drip however due to poor LV function patient was switched over to esmolol and patient rate still trending high, patient seen by coupon collection clerk will continue present managed, and being anticoagulated with Eliquis patient is seen by neurologist and he is okay with with anticoagulation and he is currently in IMU, 0n 8/ patient was taken to cardiac carpenter/labor and had cardioversion and it was successful and now patient in sinus rhythm rate is controlled, today patient denies any complaint of chest pain shortness of breath palpitation fever or chills, once the patient clinically stable and the rate is controlled, patient was again seen by coupon collection clerk and its okay to discharge, will transfer the patient to [facility] possibly tomorrow. (2) Elevated LFTs: Code(s): R79.89 - Other specified abnormal findings of blood chemistry Status: Acute Assessment and Plan: patient with elevated LFT etiology uncertain seen by GI will continue to trend patient is clinically stable (3) Systolic congestive heart failure: Code(s): I50.20 - Unspecified systolic (congestive) heart failure Status: Chronic Assessment and Plan: patient appears euvolemic (4) Cerebrovascular accident (CVA) involving right cerebral hemisphere: Code(s): I63.9 - Cerebral infarction, unspecified Status: Chronic Assessment and Plan: once patient clinically stable will transfer the patient to [facility], patient is seen by neurologist Subjective Date/time seen: 02/09/20 12:04 patient is 69-year-old male with history of diabetes hypertension hyperlipidemia LV dysfunction with ejection fraction of 35% initially patient was seen at [facility] on January 27, 2020 and had a stroke patient was not treated with tPA as he was outside the window further treatment, from there patient was transferred to TR at [facility], while in the TR patient developed atrial fibrillation with RVR and he was transferred to ICU started the patient on diltiazem drip however due to poor LV function patient was switched over to esmolol and patient rate still trending high, patient seen by coupon collection clerk will continue present managed, and being anticoagulated with Eliquis patient is seen by neurologist and he is okay with with anticoagulation and he is currently in IMU, 0n 02/06 patient was taken to cardiac carpenter/labor and had cardioversion and it was successful and now patient in sinus rhythm rate is controlled, today patient denies any complaint of chest pain shortness of breath palpitation fever or chills, once the patient clinically stable and the rate is controlled, patient was again seen by coupon collection clerk and its okay to discharge, will transfer the patient to [facility] possibly tomorrow. Review of Systems Review of Systems: All systems reviewed & are unremarkable except as noted in HPI and below Exam Const: General: comfortable and no acute distress HENMT: General nose exam: Normal nares present Mouth: Yes moist mucous membranes Eyes: General: appearance normal, both eyes and all related structures Sclera: sclerae normal Neck: Neck: supple Resp: Effort & Inspection: normal respiratory effort Auscultation: clear to auscultation bilaterally Cardio: Rate: regular rate Rhythm: regular rhythm GI: Auscultation: normal sanju
[2020-02-09 12:10] LABS: Glucose Point of Care 174 (65-105)
--- NOTE | 2020-02-09 14:04 | PM.PNCARD ---
Progress Note: A&P Assessment and Plan (1) Atrial fibrillation: Code(s): I48.91 - Unspecified atrial fibrillation Status: Acute Assessment and Plan: Has been anticoagulated with Eliquis since p.m. No bleeding issues. Cardioverted 02/07/2020. Maintaining NSR with metoprolol and amiodarone (started 02/07/2020). Back to [facility] soon? (2) Systolic congestive heart failure: Code(s): I50.20 - Unspecified systolic (congestive) heart failure Status: Chronic Assessment and Plan: Cardiomyopathy with a recent TTE from outside hospital reported show LVEF 30-35%. Does not appear to be in acute CHF or volume overloaded. Tolerating p.o. metoprolol 75 mg q8Hr and lisinopril 5 mg qd; will reduce metop to 50 BID since on amio and has soft BP. Titrate periodically; re-evaluate EF later. (3) Cerebrovascular accident (CVA) involving right cerebral hemisphere: Code(s): I63.9 - Cerebral infarction, unspecified Status: Chronic Assessment and Plan: Perhaps caused by Paroxysmal AFib. Management as per primary team, Neurology Anticoagulation Statin Rehab, PT OT, speech evaluation (4) Elevated LFTs: Code(s): R79.89 - Other specified abnormal findings of blood chemistry Status: Acute Assessment and Plan: Elevated liver enzymes of uncertain etiology, but starting to decline. Gallbladder ultrasound negative. No known episodes of hypotension. Amio started after LFTs were elevated. (5) PVCs (premature ventricular contractions): Code(s): I49.3 - Ventricular premature depolarization Status: Acute Assessment and Plan: Increased PVCs noted; K+ 3.4, on Lasix. Will supplement K+ with 20 mEq BID, though that can be reduced in a couple of days. Subjective Date/time seen: 02/09/20 14:04 Interval history: Follow-up visit in this 69-year-old man with recent to CVA Evaluated at [facility], hemiplegia and found to be in AFib with RVR on rehab service and transferred to the hospital ICU for management. The atrial fibrillation appears to be of new onset 02/03/2020 a.m. and anticoagulation started 02/04/2020 pm. Also has a cardiomyopathy, EF 30-35%. 02/05/2020 Visit: Patient is asymptomatic seems to be alert and responsive answers questions slowly but appropriately. Intravenous esmolol is infusing as per Dr. Link's recommendations from yesterday; change to metoprolol 75 mg b.i.d. Systemic anticoagulation in the form of apixaban has been initiated. Visit 02/06/2020: Patient has been transferred to IMU but since being off the esmolol drip and taking po metoprolol 75 mg q.8 hours his AFib rate has been up in the 140s fairly consistently. Patient is denying any problems with shortness of breath, chest pain or palpitations. Denies any prior history of heart disease or atrial fibrillation. Visit 02/07/2020: Patient taken to the chest Pain Center where he was sedated with propofol and cardioverted with 200 joules today restoring normal sinus rhythm. In the setting of significant cardiomyopathy started amiodarone in hopes of maintaining sinus rhythm. Continue systemic anticoagulation with apixaban. Date of service 02/08/2020: Busy morning with therapies etc, worn out. No complaints of shortness of breath, chest pain or abdominal pain. Maintaining NSR. Denies any history of liver problems. Date of Service 02/09/2020: No new problems. Asking what causes a fib, remembers he was [employer]
[2020-02-09 16:52] LABS: Glucose Point of Care 143 (65-105)
[2020-02-09] MEDS: POTASSIUM CHLORIDE 20 MEQ PACKET (FOR LIQUID) PO (16:55)
[2020-02-09] MEDS: ATORVASTATIN 40 MG TABLET PO (20:15)
[2020-02-09] MEDS: TAMSULOSIN HCL 0.4 MG CAPSULE 0.8 MG PO (20:15)
[2020-02-09] MEDS: METOPROLOL TARTRATE 50 MG TAB PO (20:15)
[2020-02-09] MEDS: ALPRAZolam 0.25 MG TABLET PO (20:18)
[2020-02-09 20:46] LABS: Glucose Point of Care 140 (65-105)
[2020-02-10] VITALS (15 sets, daily range): BP systolic 111–144; BP diastolic 60–82; PULSE 69–164; RESP 16–20; TEMP 36.1–36.5; O2SAT 91–99
[2020-02-10 05:53] LABS: Hematocrit 37.8 % (42.0-52.0); Hemoglobin 11.4 g/dL (14.0-18.0); Mean Corpuscular HGB Conc 30.2 g/dl (32-36); Mean Corpuscular Hemoglobin 22.2 pg (26-34); Mean Corpuscular Volume 73.5 fl (80-100); Mean Platelet Volume 9.9 fl (7.4-10.4); Platelet Count Result 383 k/mm3 (150-375); Red Blood Count 5.14 M/mm3 (4.6-6.20); Red Cell Distribution Width 18.6 % (11.5-14.5); White Blood Count 16.1 K/mm3 (4.5-10.0)
[2020-02-10 06:16] LABS: Alanine Aminotransferase 419 U/L (4-50); Albumin Level 3.2 g/dL (3.5-5.1); Alkaline Phosphatase 362 U/L (38-126); Anion Gap 7 mmol/L (8-16); Aspartate Amino Transferase 192 U/L (17-59); Bilirubin,Total 2.5 mg/dL (0.2-1.3); Blood Urea Nitrogen 14 mg/dL (9-20); Calcium 8.2 mg/dL (8.4-10.2); Carbon Dioxide 28 mmol/L (22-30); Chloride 93 mmol/L (98-107); Estimated CRCL calculation 155 ml/min; Estimated Glomerular Filt Rate > 60; Glucose 126 mg/dL (75-110); Potassium 3.6 mmol/L (3.4-5.0); Sodium 128 mmol/L (137-145)
[2020-02-10 07:44] LABS: Glucose Point of Care 133 (65-105)
[2020-02-10] MEDS: POTASSIUM CHLORIDE 20 MEQ TABLET 40 MEQ PO (09:30)
[2020-02-10] MEDS: APIXABAN 5 MG TABLET PO ×2 (09:31→20:51)
[2020-02-10] MEDS: POTASSIUM CHLORIDE 20 MEQ PACKET (FOR LIQUID) PO ×2 (09:31→17:02)
[2020-02-10] MEDS: METOPROLOL TARTRATE 50 MG TAB PO ×2 (09:31→20:51)
[2020-02-10] MEDS: lisinopriL 5 MG TABLET PO (09:33)
[2020-02-10] MEDS: FUROSEMIDE 40 MG TABLET PO (09:33)
[2020-02-10] MEDS: AMIODARONE HCL 200 MG TABLET PO (09:33)
[2020-02-10] MEDS: LIDOCAINE 5% PATCH 1 PATCH TOPICAL (09:33)
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
--- NOTE | 2020-02-10 10:58 | WPDGIPROGNO ---
Progress Note: A&P Additional Plan Patient unchanged. Remains with left hemiparesis. Dysarthria noted but tolerating diet adequately. Physical exam reveals Vital Signs to be stable. Lungs are clear. Heart without murmur. Abdomen is soft and nontender. No organomegaly evident. Labs reveal total bilirubin 2.5, AST 192, ALT 419. Impression 1. Elevated LFTs. Likely related to his other disease processes. Plan to follow LFTs after discharge recent ultrasound and hepatitis serologies Are negative. 2. CVA. Now with left hemiparesis. 3. Atrial fibrillation. Okay for anticoagulation from my perspective. Subjective Date/time seen: 02/10/20 10:58 Objective Data Vital Signs Vital Signs: Vital Signs - 24 hr 02/09/20 12:00 02/09/20 13:56 02/09/20 14:00 Temperature 97.0 F L Pulse Rate 71 60 67 Respiratory Rate 19 Blood Pressure 111/56 L Pulse Oximetry 97 02/09/20 16:00 02/09/20 18:00 02/09/20 20:00 Temperature 97.6 F Pulse Rate 75 78 96 Respiratory Rate 18 18 Blood Pressure 118/85 Pulse Oximetry 97 97 02/09/20 20:15 02/09/20 22:00 02/10/20 00:00 Temperature 97.0 F L Pulse Rate 96 75 83 Respiratory Rate 18 Blood Pressure 109/73 Pulse Oximetry 94 02/10/20 02:00 02/10/20 04:00 02/10/20 06:00 Temperature 97.3 F L 97.5 F L Pulse Rate 78 79 16 L Respiratory Rate 16 16 Blood Pressure 111/76 115/74 Pulse Oximetry 95 94 02/10/20 08:00 02/10/20 09:31 02/10/20 09:33 Temperature Pulse Rate 76 98 78 Respiratory Rate Blood Pressure Pulse Oximetry 02/10/20 09:46 Temperature 97.0 F L Pulse Rate 95 Respiratory Rate 20 Blood Pressure 134/76 Pulse Oximetry 96 Intake/Output Intake/Output: Intake & Output 02/07/20 02/08/20 02/09/20 02/10/20 23:59 23:59 23:59 23:59 Intake Total 540 876 900 520 Output Total 925 5046 193 5302 Balance -385 174 50 -0340 Meds/Results Medications: Active Medications Generic Name Dose Route Start Last Admin Trade Name Freq PRN Reason Stop Dose Admin Alprazolam 0.25 mg 02/04/20 18:04 02/09/20 20:18 Xanax PO 0.25 mg HS PRN Administration Anxiety Amiodarone HCl 200 mg 02/07/20 12:10 02/10/20 09:33 Pacerone PO 200 mg DAILY@0800 NADYA Administration Apixaban 5 mg 02/04/20 21:00 02/10/20 09:31 Eliquis PO 5 mg Q12HR NADYA Administration Atorvastatin Calcium 40 mg 02/03/20 21:00 02/09/20 20:15 Lipitor PO 40 mg HS NADYA Administration Dextrose 12.5 gm 02/03/20 18:56 Dextrose 50% Syringe IV PUSH PRN PRN Hypoglycemia Protocol Furosemide 40 mg 02/04/20 09:00 02/10/20 09:33 Lasix Tablet PO 40 mg DAILY NADYA Administration Glucagon 1 mg 02/03/20 18:56 Glucagon For Inj IM PRN PRN Hypoglycemia Protocol Glucose 15 gm 02/03/20 18:56 Glutose 15 PO PRN PRN Hypoglycemia Protocol Dextrose 1,000 mls @ 100 mls/hr 02/03/20 18:56 Dextrose 5% 1,000 Ml IVPB PRN PRN Hypoglycemia Protocol Insulin Aspart 2 - 5 units 02/04/20 08:00 02/10/20 07:55 Novolog SUB-Q Not Given TIDWM [facility] Protocol Lidocaine 1 patch 02/04/20 09:00 02/10/20 09:33 Lidoderm TOPICAL 1 patch DAILY NADYA Administration Lisinopril 5 mg 02/08/20 11:45 02/10/20 09:33 Prinivil PO 5 mg QAM NADYA Administration Metoprolol Tartrate 50 mg 02/09/20 21:00 02/10/20 09:31 Lopressor PO 50 mg Q12HR NADYA Administration Ondansetron HCl 4 mg 02/03/20 18:49 Zofran Inj IV PUSH Q6H PRN Nausea And Vomiting Polyethylene Glycol 17 gm 02/03/20 18:55 Miralax PO DAILY PRN Constipation Potassium Chloride 20 meq 02/09/20 17:00 02/10/20 09:31 Kcl Powder (For Liquid) PO 20 meq BID NADYA Administration Senna/Docusate Sodium 1 tab 02/03/20 18:55 Senokot S Tablet PO HS PRN Constipation Sodium Chloride 1 spray 02/03/20 18:55 [facility]
[2020-02-10 12:13] LABS: SARS-CoV-2 RNA PCR Negative
[2020-02-10 12:17] LABS: Glucose Point of Care 190 (65-105)
[2020-02-10 17:05] LABS: Glucose Point of Care 166 (65-105)
[2020-02-10] MEDS: ALPRAZolam 0.25 MG TABLET PO (20:50)
[2020-02-10] MEDS: TAMSULOSIN HCL 0.4 MG CAPSULE 0.8 MG PO (20:50)
[2020-02-10] MEDS: ATORVASTATIN 40 MG TABLET PO (20:51)
[2020-02-10 21:00] LABS: Glucose Point of Care 147 (65-105)
[2020-02-11] VITALS (14 sets, daily range): BP systolic 109–147; BP diastolic 62–84; PULSE 64–95; RESP 18–22; TEMP 35.9–36.5; O2SAT 95–99
[2020-02-11 05:40] LABS: Hematocrit 36.9 % (42.0-52.0); Hemoglobin 11.2 g/dL (14.0-18.0); Mean Corpuscular HGB Conc 30.4 g/dl (32-36); Mean Corpuscular Hemoglobin 22.4 pg (26-34); Mean Corpuscular Volume 73.8 fl (80-100); Mean Platelet Volume 9.6 fl (7.4-10.4); Platelet Count Result 389 k/mm3 (150-375); Red Cell Distribution Width 18.6 % (11.5-14.5); White Blood Count 18.5 K/mm3 (4.5-10.0)
[2020-02-11 05:50] LABS: Alanine Aminotransferase 350 U/L (4-50); Alkaline Phosphatase 371 U/L (38-126); Anion Gap 7 mmol/L (8-16); Aspartate Amino Transferase 168 U/L (17-59); Blood Urea Nitrogen 10 mg/dL (9-20); Calcium 8.4 mg/dL (8.4-10.2); Carbon Dioxide 28 mmol/L (22-30); Chloride 95 mmol/L (98-107); Estimated CRCL calculation 114 ml/min; Estimated Glomerular Filt Rate > 60; Glucose 134 mg/dL (75-110); Magnesium 2.1 mg/dL (1.6-2.3); Potassium 3.8 mmol/L (3.4-5.0); Sodium 130 mmol/L (137-145)
[2020-02-11 07:42] LABS: Glucose Point of Care 145 (65-105)
[2020-02-11] MEDS: POTASSIUM CHLORIDE 20 MEQ PACKET (FOR LIQUID) PO ×2 (08:18→16:54)
[2020-02-11] MEDS: AMIODARONE HCL 200 MG TABLET PO (08:18)
[2020-02-11] MEDS: FUROSEMIDE 40 MG TABLET PO (08:20)
[2020-02-11] MEDS: METOPROLOL TARTRATE 50 MG TAB PO ×2 (08:20→21:47)
[2020-02-11] MEDS: lisinopriL 5 MG TABLET PO (08:20)
[2020-02-11] MEDS: APIXABAN 5 MG TABLET PO ×2 (08:20→21:47)
[2020-02-11] MEDS: LIDOCAINE 5% PATCH 1 PATCH TOPICAL (08:21)
--- NOTE | 2020-02-11 10:58 | PM.PNCARD ---
Progress Note: A&P Assessment and Plan (1) Atrial fibrillation: Code(s): I48.91 - Unspecified atrial fibrillation Status: Acute Assessment and Plan: Has been anticoagulated with Eliquis since p.m. No bleeding issues. Cardioverted 02/07/2020. Maintaining NSR with metoprolol and amiodarone (started 02/07/2020). Back to [facility] soon? (2) Systolic congestive heart failure: Code(s): I50.20 - Unspecified systolic (congestive) heart failure Status: Chronic Assessment and Plan: Cardiomyopathy with a recent TTE from outside hospital reported show LVEF 30-35%. Does not appear to be in acute CHF or volume overloaded. continue metoprolol and amiodarone and lisinopril Titrate periodically; re-evaluate EF later. (3) Cerebrovascular accident (CVA) involving right cerebral hemisphere: Code(s): I63.9 - Cerebral infarction, unspecified Status: Chronic Assessment and Plan: Perhaps caused by Paroxysmal AFib. Management as per primary team, Neurology Anticoagulation Statin Rehab, PT OT, speech evaluation (4) Elevated LFTs: Code(s): R79.89 - Other specified abnormal findings of blood chemistry Status: Acute Assessment and Plan: Elevated liver enzymes of uncertain etiology, but starting to decline. Gallbladder ultrasound negative. No known episodes of hypotension. Amio started after LFTs were elevated. (5) PVCs (premature ventricular contractions): Code(s): I49.3 - Ventricular premature depolarization Status: Acute Assessment and Plan: Keep potassium above 4 and magnesium greater than 2 (6) Elevated white blood cell count: Code(s): D72.829 - Elevated white blood cell count, unspecified Status: Acute Assessment and Plan: white count keeps rising. Will check a PA and lateral chest x-ray Subjective Date/time seen: 02/11/20 10:58 Interval history: Follow-up visit in this 69-year-old man with recent to CVA Evaluated at [facility], hemiplegia and found to be in AFib with RVR on rehab service and transferred to the hospital ICU for management. The atrial fibrillation appears to be of new onset 02/03/2020 a.m. and anticoagulation started 02/04/2020 pm. Also has a cardiomyopathy, EF 30-35%. 02/05/2020 Visit: Patient is asymptomatic seems to be alert and responsive answers questions slowly but appropriately. Intravenous esmolol is infusing as per Dr. Link's recommendations from yesterday; change to metoprolol 75 mg b.i.d. Systemic anticoagulation in the form of apixaban has been initiated. Visit 02/06/2020: Patient has been transferred to IMU but since being off the esmolol drip and taking po metoprolol 75 mg q.8 hours his AFib rate has been up in the 140s fairly consistently. Patient is denying any problems with shortness of breath, chest pain or palpitations. Denies any prior history of heart disease or atrial fibrillation. Visit 02/07/2020: Patient taken to the chest Pain Center where he was sedated with propofol and cardioverted with 200 joules today restoring normal sinus rhythm. In the setting of significant cardiomyopathy started amiodarone in hopes of maintaining sinus rhythm. Continue systemic anticoagulation with apixaban. Date of service 02/08/2020: Busy morning with therapies etc, worn out. No complaints of shortness of breath, chest pain or abdominal pain. Maintaining NSR. Denies any history of liver problems. Singh
--- NOTE | 2020-02-11 11:49 | PCOTNOTE ---
Attempted OT session, but patient refused, stating he was going to pass today as he wasn't feeling well and wanted nursing to clean him up.
--- NOTE | 2020-02-11 11:55 | WPDGIPROGNO ---
Progress Note: A&P Additional Plan Patient clinically unchanged. Continues to have left hemiparesis. Dysarthria peers somewhat improved. Physical exam reveals patient to be alert. Abdomen is soft nontender with no organomegaly. Labs reveal hemoglobin stable 11.2 hemoglobin. Total bilirubin 2.0, AST 168, ALT 350. Impression 1. Improving LFTs. Etiology for elevated LFTs remains somewhat unclear. They are starting to improve suggest continuing to monitor even after discharge until they resolved. 2. Atrial fibrillation. Patient now on Eliquis anticoagulation. He appears to be tolerating it well. 3. CVA with left hemiparesis. Subjective Date/time seen: 02/11/20 11:55 Objective Data Vital Signs Vital Signs: Vital Signs - 24 hr 02/10/20 12:00 02/10/20 13:24 02/10/20 14:56 Temperature 97.5 F L Pulse Rate 93 88 164 H Respiratory Rate 20 Blood Pressure 144/82 H Pulse Oximetry 97 02/10/20 16:00 02/10/20 18:00 02/10/20 20:00 Temperature 97.3 F L 97.7 F Pulse Rate 85 91 75 Respiratory Rate 20 20 Blood Pressure 131/78 117/60 Pulse Oximetry 99 91 02/10/20 20:51 02/11/20 00:00 02/11/20 04:00 Temperature 97.7 F 97.6 F Pulse Rate 80 67 76 Respiratory Rate 22 H 20 Blood Pressure 109/72 115/62 Pulse Oximetry 95 95 02/11/20 04:12 02/11/20 08:15 02/11/20 08:18 Temperature Pulse Rate 75 75 64 Respiratory Rate Blood Pressure Pulse Oximetry 02/11/20 08:20 02/11/20 09:40 Temperature 96.7 F L Pulse Rate 64 68 Respiratory Rate 20 Blood Pressure 120/71 Pulse Oximetry 99 Intake/Output Intake/Output: Intake & Output 02/08/20 02/09/20 02/10/20 02/11/20 23:59 23:59 23:59 23:59 Intake Total 398 598 7946 320 Output Total 2760 813 2246 800 Balance -174 06 -8218 -876 Meds/Results Medications: Active Medications Generic Name Dose Route Start Last Admin Trade Name Freq PRN Reason Stop Dose Admin Alprazolam 0.25 mg 02/04/20 18:04 02/10/20 20:50 Xanax PO 0.25 mg HS PRN Administration Anxiety Amiodarone HCl 200 mg 02/07/20 12:10 02/11/20 08:18 Pacerone PO 200 mg DAILY@0800 NADYA Administration Apixaban 5 mg 02/04/20 21:00 02/11/20 08:20 Eliquis PO 5 mg Q12HR NADYA Administration Atorvastatin Calcium 40 mg 02/03/20 21:00 02/10/20 20:51 Lipitor PO 40 mg HS NADYA Administration Dextrose 12.5 gm 02/03/20 18:56 Dextrose 50% Syringe IV PUSH PRN PRN Hypoglycemia Protocol Furosemide 40 mg 02/04/20 09:00 02/11/20 08:20 Lasix Tablet PO 40 mg DAILY NADYA Administration Glucagon 1 mg 02/03/20 18:56 Glucagon For Inj IM PRN PRN Hypoglycemia Protocol Glucose 15 gm 02/03/20 18:56 Glutose 15 PO PRN PRN Hypoglycemia Protocol Dextrose 1,000 mls @ 100 mls/hr 02/03/20 18:56 Dextrose 5% 1,000 Ml IVPB PRN PRN Hypoglycemia Protocol Insulin Aspart 2 - 5 units 02/04/20 08:00 02/11/20 11:21 Novolog SUB-Q Not Given TIDWM [facility] Protocol Lidocaine 1 patch 02/04/20 09:00 02/11/20 08:21 Lidoderm TOPICAL 1 patch DAILY NADYA Administration Lisinopril 5 mg 02/08/20 11:45 02/11/20 08:20 Prinivil PO 5 mg QAM NADYA Administration Metoprolol Tartrate 50 mg 02/09/20 21:00 02/11/20 08:20 Lopressor PO 50 mg Q12HR NADYA Administration Ondansetron HCl 4 mg 02/03/20 18:49 Zofran Inj IV PUSH Q6H PRN Nausea And Vomiting Polyethylene Glycol 17 gm 02/03/20 18:55 Miralax PO DAILY PRN Constipation Potassium Chloride 20 meq 02/09/20 17:00 02/11/20 08:18 Kcl Powder (For Liquid) PO 20 meq BID NADYA Administration Senna/Docusate Sodium 1 tab 02/03/20 18:55 Senokot S Tablet PO HS PRN Constipation Sodium Chloride 1 spray 02/03/20 18:55 [place] Nasal [place] NASAL Q30M PRN Dry Nasal Passages Tamsulosin HCl 0.8 mg 02/03/20 21:00 02/10/20 20:
[2020-02-11 12:40] LABS: Glucose Point of Care 168 (65-105)
--- NOTE | 2020-02-11 13:25 | WPDNEUROPN ---
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 - Ischemic optic neuropathy, unspecified eye Status: Acute (6) Atrial fibrillation with RVR: Code(s): I48.91 - Unspecified atrial fibrillation Status: Acute (7) Atrial fibrillation: Code(s): I48.91 - Unspecified atrial fibrillation Status: Acute (8) BPH (benign prostatic hyperplasia): Code(s): N40.0 - Benign prostatic hyperplasia without lower urinary tract symptoms Status: Chronic (9) Systolic congestive heart failure: Code(s): I50.20 - Unspecified systolic (congestive) heart failure Status: Chronic (10) Hyperlipidemia: Code(s): E78.5 - Hyperlipidemia, unspecified Status: Chronic (11) Cerebrovascular accident (CVA) involving right cerebral hemisphere: Code(s): I63.9 - Cerebral infarction, unspecified Status: Chronic (12) Diabetes mellitus: Code(s): E11.9 - Type 2 diabetes mellitus without complications Status: Chronic (13) Hypertension: Code(s): I10 - Essential (primary) hypertension Status: Chronic Additional Plan from the neurological standpoint he is on appropriate medications, Cardiology and Gastroenterology are following appropriately from their standpoint at this time point I have nothing further the head and have will see him periodically as it did before Review of Systems Review of Systems: All systems reviewed & are unremarkable except as noted in HPI and below Exam Const: General: comfortable and no acute distress HENMT: General nose exam: Normal nares present Mouth: Yes moist mucous membranes Eyes: General: appearance normal, both eyes and all related structures Neck: Neck: supple and no JVD Resp: Effort & Inspection: normal respiratory effort Auscultation: clear to auscultation bilaterally Cardio: Rate: regular rate Rhythm: regular rhythm GI: Auscultation: normal bowel sounds Neuro: Other: patient awake and alert oriented x3 follows all commands with the left-sided hemiparesis which is stable Extrem: General: normal to inspection Psych: Mental Status: mental status grossly normal Objective Data Vital Signs Vital Signs: Vital Signs - 24 hr 02/10/20 14:56 02/10/20 16:00 02/10/20 18:00 Temperature 36.3 C L Pulse Rate 164 H 85 91 Respiratory Rate 20 Blood Pressure 131/78 Pulse Oximetry 99 02/10/20 20:00 02/10/20 20:51 02/11/20 00:00 Temperature 36.5 C 36.5 C Pulse Rate 75 80 67 Respiratory Rate 20 22 H Blood Pressure 117/60 109/72 Pulse Oximetry 91 95 02/11/20 04:00 02/11/20 04:12 02/11/20 08:15 Temperature 36.4 C Pulse Rate 76 75 75 Respiratory Rate 20 Blood Pressure 115/62 Pulse Oximetry 95 02/11/20 08:18 02/11/20 08:20 02/11/20 09:40 Temperature 35.9 C L Pulse Rate 64 64 68 Respiratory Rate 20 Blood Pressure 120/71 Pulse Oximetry 99 02/11/20 12:00 Temperature Pulse Rate 95 Respiratory Rate Blood Pressure Pulse Oximetry Intake/Output Intake/Output: Intake & Output 02/08/20 02/09/20 02/10/20 02/11/20 23:59 23:59 23:59 23:59 Intake Total 666 845 4207 800 Output Total 0361 441 3779 2300 Balance -174 39 -6228 -6939 Meds/Results Medications: Active Medications Generic Name Dose Route Start Last Admin Trade Name Freq PRN Reason Stop Dose Admin Alprazolam 0.25 mg 02/04/20 18:04 02/10/20 20:50 Xanax PO 0
--- NOTE | 2020-02-11 13:25 | PM.IMPN ---
Progress Note: A&P Assessment and Plan (1) Atrial fibrillation with RVR: Code(s): I48.91 - Unspecified atrial fibrillation Status: Resolved Assessment and Plan: patient is 69-year-old male with history of diabetes hypertension hyperlipidemia LV dysfunction with ejection fraction of 35% initially patient was seen at [facility] on January 27, 2020 and had a stroke patient was not treated with tPA as he was outside the window further treatment, from there patient was transferred to [facility] at [facility], while in the [facility] patient developed atrial fibrillation with RVR and he was transferred to ICU started the patient on diltiazem drip however due to poor LV function patient was switched over to esmolol and patient rate still trending high, patient seen by physical science technician will continue present managed, and being anticoagulated with Eliquis patient is seen by neurologist and he is okay with with anticoagulation and he is currently in IMU, 0n 02/06 patient was taken to cardiac produce laborer and had cardioversion and it was successful and now patient in sinus rhythm rate is controlled and maintained (2) Elevated LFTs: Code(s): R79.89 - Other specified abnormal findings of blood chemistry Status: Acute Assessment and Plan: patient with elevated LFT etiology uncertain seen by GI will continue to trend patient is clinically stable (3) Systolic congestive heart failure: Code(s): I50.20 - Unspecified systolic (congestive) heart failure Status: Chronic Assessment and Plan: patient appears euvolemic (4) Cerebrovascular accident (CVA) involving right cerebral hemisphere: Code(s): I63.9 - Cerebral infarction, unspecified Status: Chronic Assessment and Plan: once patient clinically stable will transfer the patient to [facility], patient is seen by neurologist (5) Diarrhea: Code(s): R19.7 - Diarrhea, unspecified Status: Acute Assessment and Plan: 02/10 [facility] high pt to have CXR. CXr is nl. Pt having severe diarrhea today ongoing weakness of leftside. awaiting cdiff result prior to placement. Subjective Date/time seen: 02/11/20 13:25 Interval history: DOS 02/10 02/10 [facility] high pt to have CXR. CXr is nl. Pt having severe diarrhea today ongoing weakness of leftside. awaiting cdiff result prior to placement. Patient is 69-year-old male with history of diabetes hypertension hyperlipidemia LV dysfunction with ejection fraction of 35% initially patient was seen at [facility] on January 27, 2020 and had a stroke patient was not treated with tPA as he was outside the window further treatment, from there patient was transferred to [facility] at [facility], while in the [facility] patient developed atrial fibrillation with RVR and he was transferred to ICU started the patient on diltiazem drip however due to poor LV function patient was switched over to esmolol and patient rate still trending high, patient seen by physical science technician will continue present managed, and being anticoagulated with Eliquis patient is seen by neurologist and he is okay with with anticoagulation and he is currently in IMU, 0n 02/06 patient was taken to cardiac produce laborer and had cardioversion and it was successful and now patient in sinus rhythm rate is controlled. Review of Systems Review of Systems: All systems reviewed & are unremarkable except as noted in HPI and below Exam Const: Other: tired Chest: Chest palpation & inspection: normal inspection of the chest Resp: Effort & Inspection: normal respiratory effort Auscultation: clear to auscultation bilaterally Percussion: percussion normal Other: bilateral fair air entry with rales and rhonchi Cardio: Palpation: normal PMI Rate: regular rate Rhythm: regular rhythm Heart sounds: S1 normal heart sound present and S2 normal heart sound present Peripheral pulses: Peripheral pulses 2+ throughout Other: irregularly irregular tachy Neuro: Motor e
[2020-02-11 17:38] LABS: Glucose Point of Care 159 (65-105)
[2020-02-11] MEDS: ATORVASTATIN 40 MG TABLET PO (21:47)
[2020-02-11] MEDS: TAMSULOSIN HCL 0.4 MG CAPSULE 0.8 MG PO (21:51)
[2020-02-11 23:03] LABS: Glucose Point of Care 127 (65-105)
[2020-02-12] VITALS (11 sets, daily range): BP systolic 109–127; BP diastolic 62–72; PULSE 64–97; RESP 13–21; TEMP 35.9–36.6; O2SAT 94–98
[2020-02-12 05:46] LABS: Anion Gap 6 mmol/L (8-16); Blood Urea Nitrogen 10 mg/dL (9-20); Calcium 8.7 mg/dL (8.4-10.2); Carbon Dioxide 28 mmol/L (22-30); Chloride 97 mmol/L (98-107); Estimated CRCL calculation 131 ml/min; Estimated Glomerular Filt Rate > 60; Glucose 133 mg/dL (75-110); Potassium 3.9 mmol/L (3.4-5.0); Sodium 131 mmol/L (137-145)
[2020-02-12 06:59] LABS: Glucose Point of Care 139 (65-105)
[2020-02-12 07:49] LABS: Glucose Point of Care 139 (65-105)
[2020-02-12] MEDS: APIXABAN 5 MG TABLET PO (09:00)
[2020-02-12] MEDS: lisinopriL 5 MG TABLET PO (09:00)
[2020-02-12] MEDS: METOPROLOL TARTRATE 50 MG TAB PO (09:01)
[2020-02-12] MEDS: FUROSEMIDE 40 MG TABLET PO (09:02)
[2020-02-12] MEDS: LIDOCAINE 5% PATCH 1 PATCH TOPICAL (09:02)
[2020-02-12] MEDS: AMIODARONE HCL 200 MG TABLET PO (09:02)
[2020-02-12] MEDS: POTASSIUM CHLORIDE 20 MEQ PACKET (FOR LIQUID) PO ×2 (09:02→18:04)
--- NOTE | 2020-02-12 09:51 | PM.PNCARD ---
Progress Note: A&P Assessment and Plan (1) Atrial fibrillation: Code(s): I48.91 - Unspecified atrial fibrillation Status: Acute Assessment and Plan: Has been anticoagulated with Eliquis since p.m. No bleeding issues. Cardioverted 02/07/2020. Maintaining NSR with metoprolol and amiodarone (started 02/07/2020). Back to [facility] soon? (2) Systolic congestive heart failure: Code(s): I50.20 - Unspecified systolic (congestive) heart failure Status: Chronic Assessment and Plan: Cardiomyopathy with a recent TTE from outside hospital reported show LVEF 30-35%. Does not appear to be in acute CHF or volume overloaded. continue metoprolol and amiodarone and lisinopril Titrate periodically; re-evaluate EF later. (3) Cerebrovascular accident (CVA) involving right cerebral hemisphere: Code(s): I63.9 - Cerebral infarction, unspecified Status: Chronic Assessment and Plan: Perhaps caused by Paroxysmal AFib. Management as per primary team, Neurology Anticoagulation Statin Rehab, PT OT, speech evaluation (4) Elevated LFTs: Code(s): R79.89 - Other specified abnormal findings of blood chemistry Status: Acute Assessment and Plan: Elevated liver enzymes of uncertain etiology, but starting to decline. Gallbladder ultrasound negative. No known episodes of hypotension. Amio started after LFTs were elevated. (5) PVCs (premature ventricular contractions): Code(s): I49.3 - Ventricular premature depolarization Status: Acute Assessment and Plan: Keep potassium above 4 and magnesium greater than 2 (6) Elevated white blood cell count: Code(s): D72.829 - Elevated white blood cell count, unspecified Status: Acute Assessment and Plan: white count keeps rising. . Workup per hospitalist Subjective Date/time seen: 02/12/20 09:51 Interval history: Follow-up visit in this 69-year-old man with recent to CVA Evaluated at [facility], hemiplegia and found to be in AFib with RVR on rehab service and transferred to the hospital ICU for management. The atrial fibrillation appears to be of new onset 02/03/2020 a.m. and anticoagulation started 02/04/2020 pm. Also has a cardiomyopathy, EF 30-35%. 02/05/2020 Visit: Patient is asymptomatic seems to be alert and responsive answers questions slowly but appropriately. Intravenous esmolol is infusing as per Dr. Link's recommendations from yesterday; change to metoprolol 75 mg b.i.d. Systemic anticoagulation in the form of apixaban has been initiated. Visit 02/06/2020: Patient has been transferred to IMU but since being off the esmolol drip and taking po metoprolol 75 mg q.8 hours his AFib rate has been up in the 140s fairly consistently. Patient is denying any problems with shortness of breath, chest pain or palpitations. Denies any prior history of heart disease or atrial fibrillation. Visit 02/07/2020: Patient taken to the [facility] where he was sedated with propofol and cardioverted with 200 joules today restoring normal sinus rhythm. In the setting of significant cardiomyopathy started amiodarone in hopes of maintaining sinus rhythm. Continue systemic anticoagulation with apixaban. Date of service 02/08/2020: Busy morning with therapies etc, worn out. No complaints of shortness of breath, chest pain or abdominal pain. Maintaining NSR. Denies any history of liver problems. Date of Service
--- NOTE | 2020-02-12 10:03 | WPDGIPROGNO ---
Progress Note: A&P Additional Plan Patient unchanged. Tolerating diet. No abdominal pain reported physical exam reveals patient to have dysarthria. Left hemiparesis unchanged. Lungs are clear. Heart without murmur. Abdomen is soft and nontender with no organomegaly. Labs reveal total bilirubin 2.0, AST 168, ALT 350, alk-phos 371. Impression: 1. elevated LFTs with gradual resolution. Plan is for conservative management. Follow-up LFTs in a week after discharge. 2. CVA. With left hemiparesis 3. Atrial fibrillation. Status post cardioversion Subjective Date/time seen: 02/12/20 10:03 Objective Data Vital Signs Vital Signs: Vital Signs - 24 hr 02/11/20 12:00 02/11/20 13:00 02/11/20 16:00 Temperature 97.1 F L Pulse Rate 95 73 64 Respiratory Rate 20 Blood Pressure 147/73 H Pulse Oximetry 98 02/11/20 17:00 02/11/20 20:00 02/11/20 21:47 Temperature 97.5 F L Pulse Rate 84 83 78 Respiratory Rate 18 Blood Pressure 144/84 H Pulse Oximetry 96 02/11/20 22:00 02/12/20 00:00 02/12/20 02:00 Temperature 97.0 F L 97.1 F L Pulse Rate 80 76 97 Respiratory Rate 20 20 Blood Pressure 128/63 127/62 Pulse Oximetry 96 94 02/12/20 04:00 02/12/20 06:00 02/12/20 08:00 Temperature 96.6 F L Pulse Rate 78 80 81 Respiratory Rate 20 Blood Pressure 124/72 Pulse Oximetry 95 02/12/20 09:01 02/12/20 09:02 Temperature Pulse Rate 64 64 Respiratory Rate Blood Pressure Pulse Oximetry Intake/Output Intake/Output: Intake & Output 02/09/20 02/10/20 02/11/20 02/12/20 23:59 23:59 23:59 23:59 Intake Total 900 1200 1280 820 Output Total 850 3850 2925 2100 Balance 64 -2573 -2468 -2207 Meds/Results Medications: Active Medications Generic Name Dose Route Start Last Admin Trade Name Freq PRN Reason Stop Dose Admin Alprazolam 0.25 mg 02/04/20 18:04 02/10/20 20:50 Xanax PO 0.25 mg HS PRN Administration Anxiety Amiodarone HCl 200 mg 02/07/20 12:10 02/12/20 09:02 Pacerone PO 200 mg DAILY@0800 NADYA Administration Apixaban 5 mg 02/04/20 21:00 02/12/20 09:00 Eliquis PO 5 mg Q12HR NADYA Administration Atorvastatin Calcium 40 mg 02/03/20 21:00 02/11/20 21:47 Lipitor PO 40 mg HS NADYA Administration Dextrose 12.5 gm 02/03/20 18:56 Dextrose 50% Syringe IV PUSH PRN PRN Hypoglycemia Protocol Furosemide 40 mg 02/04/20 09:00 02/12/20 09:02 Lasix Tablet PO 40 mg DAILY NADYA Administration Glucagon 1 mg 02/03/20 18:56 Glucagon For Inj IM PRN PRN Hypoglycemia Protocol Glucose 15 gm 02/03/20 18:56 Glutose 15 PO PRN PRN Hypoglycemia Protocol Dextrose 1,000 mls @ 100 mls/hr 02/03/20 18:56 Dextrose 5% 1,000 Ml IVPB PRN PRN Hypoglycemia Protocol Insulin Aspart 2 - 5 units 02/04/20 08:00 02/12/20 07:50 Novolog SUB-Q Not Given [facility] Protocol Lidocaine 1 patch 02/04/20 09:00 02/12/20 09:02 Lidoderm TOPICAL 1 patch DAILY NADYA Administration Lisinopril 5 mg 02/08/20 11:45 02/12/20 09:00 Prinivil PO 5 mg QAM NADYA Administration Metoprolol Tartrate 50 mg 02/09/20 21:00 02/12/20 09:01 Lopressor PO 50 mg Q12HR NADYA Administration Ondansetron HCl 4 mg 02/03/20 18:49 Zofran Inj IV PUSH Q6H PRN Nausea And Vomiting Polyethylene Glycol 17 gm 02/03/20 18:55 Miralax PO DAILY PRN Constipation Potassium Chloride 20 meq 02/09/20 17:00 02/12/20 09:02 Kcl Powder (For Liquid) PO 20 meq BID NADYA Administration Senna/Docusate Sodium 1 tab 02/03/20 18:55 Senokot S Tablet PO HS PRN Constipation Sodium Chloride 1 spray 02/03/20 18:55 [place] Nasal [place] NASAL Q30M PRN Dry Nasal Passages Tamsulosin HCl 0.8 mg 02/03/20 21:00 08/11/20 21:51 Flomax PO 0.8 mg HS NADYA Administration Radiology Results: ITS Impre
[2020-02-12 11:59] LABS: Glucose Point of Care 211 (65-105)
[2020-02-12] MEDS: INSULIN ASPART (*BKC) 100 UNITS/ML SUB-Q (12:06)
--- NOTE | 2020-02-12 13:27 | PCDIET ---
Nutrition Follow-Up Complete: Pt current nutrition is Heart Healthy, Mild Thick Liquids, Soft and Bite Sized Level 6. Nutrition recommendation: agree Last recorded weight is 117.9 kg (up from assessed wt) Bowel Motility: 02/11 BM+ Labs Reviewed:211 Glucose Meds Noted:KCL, Lasix, Insulin Additional Notes: Pt with good intake on diet (75, 75, 80%). No wt loss. Bowels moving and diet appropriate. If glucose continues to trend high, pt may benefit from DBCC diet. We will continue to monitor every 7 days.
--- NOTE | 2020-02-12 13:45 | PM.IMPN ---
Progress Note: A&P Assessment and Plan (1) Atrial fibrillation with RVR: Code(s): I48.91 - Unspecified atrial fibrillation Status: Resolved Assessment and Plan: Patient is 69-year-old male with history of diabetes hypertension hyperlipidemia LV dysfunction with ejection fraction of 35% initially patient was seen at [facility] on January 27, 2020 and had a stroke patient was not treated with tPA as he was outside the window further treatment, from there patient was transferred to TR at [facility], while in the TRC patient developed atrial fibrillation with RVR and he was transferred to ICU started the patient on diltiazem drip however due to poor LV function patient was switched over to esmolol and patient rate still trending high, patient seen by chicken hatchery helper will continue present managed, and being anticoagulated with Eliquis patient is seen by neurologist and he is okay with with anticoagulation, 0n 8 patient was taken to cardiac tag and label cutter and had cardioversion and it was successful and now patient in sinus rhythm rate is controlled and maintained. Pt is stable for discharge to rehab facility. (2) Elevated LFTs: Code(s): R79.89 - Other specified abnormal findings of blood chemistry Status: Acute Assessment and Plan: Patient with elevated LFT unknown etiology (3) Systolic congestive heart failure: Code(s): I50.20 - Unspecified systolic (congestive) heart failure Status: Chronic Assessment and Plan: Patient appears euvolemic (4) Cerebrovascular accident (CVA) involving right cerebral hemisphere: Code(s): I63.9 - Cerebral infarction, unspecified Status: Chronic Assessment and Plan: Pt is stable for dischrage to rehab, patient is seen by neurologist (5) Diarrhea: Code(s): R19.7 - Diarrhea, unspecified Status: Acute Assessment and Plan: Pt having diarrhea today, pt can have imodium to help with his symptoms Subjective Date/time seen: 02/12/20 13:45 Interval history: DOS 02/11 Patient is 69-year-old male with history of diabetes hypertension hyperlipidemia LV dysfunction with ejection fraction of 35% initially patient was seen at [facility] on January 27, 2020 and had a stroke patient was not treated with tPA as he was outside the window further treatment, from there patient was transferred to TR at [facility], while in the TRC patient developed atrial fibrillation with RVR and he was transferred to ICU started the patient on diltiazem drip however due to poor LV function patient was switched over to esmolol and patient rate still trending high, patient seen by chicken hatchery helper will continue present managed, and being anticoagulated with Eliquis patient is seen by neurologist and he is okay with with anticoagulation and he is currently in IMU, 0n 8/ patient was taken to cardiac tag and label cutter and had cardioversion and it was successful and now patient in sinus rhythm rate is controlled. Pt can be discharged for further rehabilitation. Cxr yesterday is NL, Cdiff is negative. pt still having some diarrhea can use imodium to settle it. Review of Systems Review of Systems: All systems reviewed & are unremarkable except as noted in HPI and below Constitutional: Constitutional: Reports weakness Comments: Tired some diarrhea Exam Const: General: cooperative, alert and awake Orientation/consciousness: oriented to person, oriented to place, oriented to time and patient oriented x3 Other: Tired Resp: Effort & Inspection: normal respiratory effort Auscultation: clear to auscultation bilaterally Percussion: percussion normal Cardio: Palpation: normal PMI Rate: regular rate Rhythm: regular rhythm Heart sounds: S1 normal heart sound present and S2 normal heart sound present Peripheral pulses: Peripheral pulses 2+ throughout GI: Inspection: normal to inspection Auscultation: normal bowel sounds Neuro: Motor exam (neur
--- NOTE | 2020-02-12 14:09 | PM.DS ---
DS: Admitting Diagnosis Admitting Diagnosis Admitting Diagnosis: Unspecified atrial fibrillation DS: Discharge Diagnosis Discharge Diagnosis (1) Atrial fibrillation with RVR: Code(s): I48.91 - Unspecified atrial fibrillation Status: Resolved Assessment and Plan: Patient is 69-year-old male with history of diabetes hypertension hyperlipidemia LV dysfunction with ejection fraction of 35% initially patient was seen at [facility] on January 27, 2020 and had a stroke patient was not treated with tPA as he was outside the window further treatment, from there patient was transferred to [facility], while in the TR patient developed atrial fibrillation with RVR and he was transferred to ICU started the patient on diltiazem drip however due to poor LV function patient was switched over to esmolol and patient rate still trending high, patient seen by bellman driver will continue present managed, and being anticoagulated with Eliquis patient is seen by neurologist and he is okay with with anticoagulation, 0n 8/7 patient was taken to cardiac labor arbitrator hearing office and had cardioversion and it was successful and now patient in sinus rhythm rate is controlled and maintained. Pt is stable for discharge to rehab facility. (2) Elevated LFTs: Code(s): R79.89 - Other specified abnormal findings of blood chemistry Status: Acute Assessment and Plan: Patient with elevated LFT unknown etiology (3) Systolic congestive heart failure: Code(s): I50.20 - Unspecified systolic (congestive) heart failure Status: Chronic Assessment and Plan: Patient appears euvolemic (4) Cerebrovascular accident (CVA) involving right cerebral hemisphere: Code(s): I63.9 - Cerebral infarction, unspecified Status: Chronic Assessment and Plan: Pt is stable for dischrage to rehab, patient is seen by neurologist (5) Diarrhea: Code(s): R19.7 - Diarrhea, unspecified Status: Acute Assessment and Plan: Pt having diarrhea today, pt can have imodium to help with his symptoms DS: Summary Time Spent with Patient Time attestation: Total time spent providing and/or coordinating discharge services:40 minutes on day of discharge Exam Const: General: cooperative and alert Resp: Effort & Inspection: normal respiratory effort Auscultation: clear to auscultation bilaterally Percussion: percussion normal Cardio: Palpation: normal PMI Rate: regular rate Rhythm: regular rhythm Heart sounds: S1 normal heart sound present and S2 normal heart sound present Peripheral pulses: Peripheral pulses 2+ throughout GI: Inspection: normal to inspection Auscultation: normal bowel sounds Neuro: Motor exam (neuro): Abnormal motor strength present (left upper and lower ext weaker than right) DS: Data Data Completed and Pending Labs on day of discharge: Labs from last 24 hours 02/12/20 02/12/20 02/12/20 11:45 07:44 06:56 Sodium Potassium Chloride Carbon Dioxide Anion Gap BUN Creatinine Estim Creat Clear Calc Estimated GFR Glucose POC Capillary Glucose 211 H 139 H 139 H Calcium 02/12/20 02/11/20 02/11/20 05:05 21:58 16:56 Sodium 131 L Potassium 3.9 Chloride 97 L Carbon Dioxide 28 Anion Gap 6 L BUN 10 Creatinine 0.60 L Estim Creat Clear Calc 131 Estimated GFR > 60 Glucose 133 H POC Capillary Glucose 127 H 159 H Calcium 8.7 Discharge Plan Discharge Attending physician on discharge: Swathi Tejeda Consulting providers: Vince Shafer ; Kyle Crowder ; Imtiaz Finch ; Ike Rhodes ; Eulogio Link ; Rossy Jerome ; Thaddeus Vasquez ; Jose Bourgeois ; Chavez Kendrick ; Tho Portillo ; Juan Luis Merino ; Poncho Pham V. ; Emily Delgadillo Discharging Clinician: Swathi Tejeda Anticipated Discharge Date/Time: 02/12/20 14:13 Patient Disposition: SNF Activity: as tolerated
[2020-02-12 16:39] LABS: Glucose Point of Care 144 (65-105)
== END 2020-02-12 20:30 | DRG 309 ==
LOC: ANHICU 02-05 08:53 → ANHIMU 02-05 22:04 → ANH2MED 02-08 18:20
PROVIDERS: Family Medicine; Internal Medicine; Internal Medicine Gastroenterology; Nurse Practitioner; Specialist; Admitting Provider Family Medicine; PCP Family Medicine; Visit Provider Family Medicine
PROC: 5A2204Z Restoration of Cardiac Rhythm, Single (ICD-10-PCS; principal; 2020-02-07 11:30)
DX: I48.91 Unspecified atrial fibrillation (principal); I50.22 Chronic systolic (congestive) heart failure; I69.354 Hemiplegia and hemiparesis following cerebral infarction affecting left non-dominant side; I42.9 Cardiomyopathy, unspecified; I11.0 Hypertensive heart disease with heart failure; I69.322 Dysarthria following cerebral infarction; I69.392 Facial weakness following cerebral infarction; Z11.59 Encounter for screening for other viral diseases; H47.019 Ischemic optic neuropathy, unspecified eye; D72.829 Elevated white blood cell count, unspecified; N40.0 Benign prostatic hyperplasia without lower urinary tract symptoms; E78.5 Hyperlipidemia, unspecified; I49.3 Ventricular premature depolarization; R19.7 Diarrhea, unspecified; R79.89 Other specified abnormal findings of blood chemistry; Z79.82 Long term (current) use of aspirin; Z79.899 Other long term (current) drug therapy
CPT/HCPCS: 36415; 36600; 70496; 71046; 76705; 80048; 80053; 80074; 81001; 82247; 82248; 82728; 82805; 83036; 83540; 83550; 83605; 83690; 83735; 84100; 84439; 84484; 85025; 85027; 87040; 87086; 87324; 87635; 92507; 92523; 92526; 92960; 93005; 97110; 97129; 97162; 97165; 97530; 97535; A9270; C8929; C9803; J1160; J1644; J1815; J2704; J7040; Q9957; Q9967; U0003

== ENCOUNTER 2020-03-09 15:22 | Inpatient (IN) | payer MEDICARE, SELFPAY ==
[2020-03-09] VITALS (10 sets, daily range): BP systolic 100–145; BP diastolic 59–85; PULSE 88–119; RESP 16–27; TEMP 36.4–38.3; O2SAT 94–99; BMI 30.7
--- NOTE | ~2020-03-09 | XR_ITS ---
XR chest 1V portable DATE: 03/09/2020 18:07 INDICATION: Fever, cough. Atrial fibrillation. Urinary tract infection. History of hypertension. TECHNIQUE: Portable AP chest on 03/09/2020 at 1756 hours COMPARISON: 02/11/2020 AP and lateral chest FINDINGS: Heart size is normal. There is aortic arch calcification, mild aortic unfolding. No hilar o r mediastinal enlargement. No pulmonary infiltrate or consolidation, pleural effusion or pulmonary vascular congestion or pneumo thorax. There is degenerative spurring of the thoracic spine. Surgical clips, right upper quadrant, likely due to cholecystectomy. IMPRESSION: No active cardiopulmonary disease Reviewed, dictated and finalized at location A.
--- NOTE | 2020-03-09 15:14 | ED.FEVER ---
HPI - Fever General Chief Complaint: Fever Stated Complaint: FEVER Source: EMS Mode of arrival: EMS Limitations: no limitations History of Present Illness HPI Narrative: Patient is a 69-year-old male with a history of atrial fibrillation,, congestive heart failure, diabetes, CVA who presents for evaluation of fever. Patient presents from residential facility where he has been treated for urinary tract infection with oral antibiotics and had a persistent fever to 101 Fahrenheit today. Patient does have a chronic indwelling Beck due to CVA deficits. Patient denying any chest pain or shortness of breath. Patient states that he sometimes coughs if he swallows the wrong way but otherwise denies chronic cough. He does report some lower abdominal pain near to the Beck. No nausea or vomiting. Glucose in route was 121 and vital signs were stable. Oxygen saturation per EMS were notable for a oxygen saturation of 97% on room air. Patient was noted to be tachycardic while being transferred. Related Data Home Medications Medication Instructions Recorded Confirmed atorvastatin 40 mg PO HS 01/31/20 02/03/20 furosemide 40 mg PO DAILY 01/31/20 02/03/20 tamsulosin 0.8 mg PO HS 01/31/20 02/03/20 Humalog U-100 Insulin 03/09/20 glipizide 5 mg BYMOUTH DAILY 03/09/20 03/09/20 ibuprofen 200 mg PRN 03/09/20 lisinopril 5 mg PO DAILY 03/09/20 03/09/20 modafinil 100 mg PO QAM 03/09/20 03/09/20 omeprazole 20 mg PO DAILY 03/09/20 03/09/20 potassium chloride 20 meq PO DAILY 03/09/20 03/09/20 sulfamethoxazole-trimethoprim 03/09/20 [Bactrim DS] Allergies Allergy/AdvReac Type Severity Reaction Status Date / Time No Known Allergies Allergy Verified 03/09/20 16:03 Review of Systems Review of Systems: Narrative: CONSTITUTIONAL: Reports fever and chills CARDIOVASCULAR: Denies chest pain RESPIRATORY: Reports chronic cough GASTROINTESTINAL:Reports lower abdominal pain SKIN: Denies rash MUSCULOSKELETAL: Denies back pain NEUROLOGIC: Denies headache PMFSH Past Medical History Medical History BPH (benign prostatic hyperplasia) Cerebrovascular accident (CVA) involving right cerebral hemisphere Diabetes mellitus Hyperlipidemia Hypertension Ischemic optic neuropathy Systolic congestive heart failure last EF 30-35%. Surgical History Surgical History H/O eye surgery 1968 History of left hip replacement 2016 History of tonsillectomy Hx of cholecystectomy 1993 Social History Social History Social History: the patient lives home alone. His father is a durable power barber stylist for healthcare. The patient is a full code. He is single is never . He does not have any children. He has never smoked. He worked at a [employer]. Patient stated he used to drink either beer or mixed drink every day. No tobacco are marijuana. Smoking status: Never smoker Alcohol intake: never Substance use: never Substance use type: does not use Gender identity (if verbalized by the patient): Male Spiritual care concerns: No Exam Narrative: Exam Narrative: GENERAL: Awake, alert, conversant HEAD: Normocephalic, atraumatic. Left-sided facial droop, chronic. EYES: 2+ PERRLA ENT: Nares clear, no rhinorrhea or epistaxis. Mucous membranes dry NECK: Supple. CHEST: No respiratory distress, breathing even and non labored HEART: Tachycardic rate, sinus rhythm ABDOMEN:Non distended, non tender EXTREMITIES: Weakness of the left extremities, chronic. No edema. SKIN: Pale, warm, dry, no rash. NEURO:No focal deficits. Alert and oriented x3 Course Vital Signs Vital signs: Vital Signs Temperature 38.3 C H 03/09/20 15:21 Pulse Rate 119 H 03/09/20 15:21 Respiratory Rate 21 H 03/09/20 15:21 Blood Pressure 145/85 H 03/09/20 15:21 Pulse Oximetry 97 03/09/20 15
[2020-03-09 15:46] LABS: Basophils Percent Auto 0.2 % (0.2-1.2); Eosinophils Absolute Auto 0.1 K/mm3 (0-0.3); Eosinophils Percent Auto 0.7 % (0-4.4); Hematocrit 43.6 % (42.0-52.0); Hemoglobin 13.6 g/dL (14.0-18.0); Immature Granulocyte Absolute 0.21 K/mm3 (0.00-0.031); Immature Granulocyte Percent A 1.1 % (0-0.5); Immature Platelet Fraction Pct 9.3 % (0.9-11.2); Lymphocytes Absolute Auto 0.38 K/mm3 (0.9-3.2); Lymphocytes Percent Auto 2.1 % (18.3-44.2); Mean Corpuscular HGB Conc 31.2 g/dl (32-36); Mean Corpuscular Hemoglobin 22.6 pg (26-34); Mean Corpuscular Volume 72.3 fl (80-100); Mean Platelet Volume 11.4 fl (7.4-10.4); Monocytes Absolute Auto 0.4 K/mm3 (0.1-0.6); Monocytes Percent Auto 2.2 % (2.6-8.5); Neutrophils Absolute Auto 17.2 K/mm3 (1.3-6.7); Neutrophils Percent Auto 93.7 % (45.5-73.1); Platelet Count Result 259 k/mm3 (150-375); Red Blood Count 6.03 M/mm3 (4.6-6.20); Red Cell Distribution Width 20.2 % (11.5-14.5); White Blood Count 18.3 K/mm3 (4.5-10.0)
[2020-03-09] MEDS: SODIUM CHLORIDE 0.9% IV 1,000 ML 999 ML IV CONT (15:47)
[2020-03-09 15:50] LABS: Add Urine Microscopic? YES; Appearance Urine Cloudy (Clear); Bacteria Urine 1+ /hpf; Bilirubin Urine Negative (Negative); Blood Urine 2+ (Negative); Color Urine Yellow (Yellow); Glucose Urine UA Negative (Negative); Ketones Urine Negative (Negative); Leukocyte Esterase Ur 3+ LEU/UL (Negative); Nitrate Urine Positive (Negative); Protein Urine Negative (Negative); RBC Urine 21-50 /hpf (0-2); Specific Grav Ur 1.009 (1.001-1.035); WBC Urine >75 /hpf
[2020-03-09 15:55] LABS: INR 1.4; Prothrombin Time 17.2 Seconds (11.1-14.7)
[2020-03-09 15:56] LABS: Partial Thromboplastin Time 35.4 SECONDS (22.3-36.8)
[2020-03-09 16:00] LABS: Lactic Acid Reflex 4.2 mmol/L (0.7-2.1)
[2020-03-09 16:06] LABS: Alanine Aminotransferase 258 U/L (4-50); Albumin Level 3.9 g/dL (3.5-5.1); Alkaline Phosphatase 235 U/L (38-126); Anion Gap 13 mmol/L (8-16); Aspartate Amino Transferase 85 U/L (17-59); Bilirubin,Total 0.8 mg/dL (0.2-1.3); Blood Urea Nitrogen 11 mg/dL (9-20); Calcium 9.2 mg/dL (8.4-10.2); Carbon Dioxide 29 mmol/L (22-30); Chloride 89 mmol/L (98-107); Estimated CRCL calculation 93 ml/min; Estimated Glomerular Filt Rate > 60; Glucose 111 mg/dL (75-110); Potassium 3.5 mmol/L (3.4-5.0); Sodium 131 mmol/L (137-145)
[2020-03-09 16:08] LABS: Troponin I 0.015 ng/mL (0.000-0.034)
--- NOTE | 2020-03-09 16:08 | ECG_ITS ---
Measurements Intervals [place] Rate: 120 P: 40 [place]: 147 QRS: -23 QRSD: 89 T: 40 QT: 320 QTc: 453 Interpretive Statements SINUS TACHYCARDIA VENTRICULAR PREMATURE COMPLEXES BORDERLINE T WAVE ABNORMALITY- HIGH LATERAL LEADS BASELINE WANDER- V6 ABNORMAL ECG Electronically Signed On 03-09-2020 18:08:12 CDT by Juan Luis Merino D.O.
[2020-03-09 16:11] LABS: CRP 12.7 mg/dL (<1.0)
[2020-03-09 18:43] LABS: Reflex Lactic Acid Yes or No Add Lactic
--- NOTE | 2020-03-09 18:50 | ADMGEN ---
This patient, Sumit Ross, was admitted to 2 Medical Room 240-. Patient/family oriented to hospital policies and general routines including ID bracelet, bed and alarms, visiting hours, pain management, procedures, bathroom and other care routines, personal items, smoking policy, room service/diet, and visiting hours. Valuables list has been completed. Information on how to activate the Rapid Response Team has been discussed. Patient/Family are encouraged to report perceived risks to care and to ask questions if they do not understand what they are told or what they should do.
[2020-03-09 19:33] LABS: Lactic Acid 1.3 mmol/L (0.7-2.1)
--- NOTE | 2020-03-09 20:00 | PM.IMHP ---
H&P: HPI History of Present Illness Date/Time: 03/09/20 20:00 Chief complaint: Fever. Narrative: Sumit Ross is a 69-year-old male with history of right cerebral hemisphere CVA on 01/27/2020 with resultant dysarthria and dense hemiplegia, atrial fibrillation status post cardioversion on 02/07/2020, type 2 diabetes mellitus, hypertension, systolic congestive heart failure, and benign prostatic hyperplasia presented to the emergency department earlier today via EMS from [facility] for evaluation of a fever. Patient reports a Beck catheter was inserted about 10 days ago due to what sounds like hesitancy, dribbling, and urinary retention although it has been charted that the catheter has been and longer due to incontinence. More recently was found to have urinary tract infection and was started on Bactrim. Unfortunately he continues to have persistent fevers and was brought in for evaluation today. He reports some slight discomfort at the tip of the penis which she attributes to the Beck catheter, and also notes an aching discomfort in the left upper quadrant/flank region. He denies chills, confusion, nausea, vomiting, back pain, and history of pancreatitis or kidney stones. he has not had chest pain, palpitations, shortness of breath, or cough. Review of Systems Review of Systems: Narrative: Twelve systems were reviewed with pertinent positives and negatives as per HPI. Of note he is known to the hospitalist service with a recent admission from 02/03/2020 through 02/12/2020. He was admitted for atrial fibrillation with rapid ventricular response and he was cardioverted on February 06. His LFTs were also quite elevated, but did drift down expectantly, etiology of which is not entirely clear. He was transferred to the rehab facility on discharge. He had dysphagia after her stroke but has undergone speech therapy and is now eating and drinking a regular diet. He denies concerns for aspiration. No nausea or vomiting. Denies diarrhea. Except as documented, all other systems were reviewed and are negative. [facility] Past Medical History Medical History (Updated 03/09/20 @ 21:22 by Oralia Vance PA-C) Benign prostatic hyperplasia Cerebrovascular accident (CVA) involving right cerebral hemisphere (~01/27/20) With dense hemiplegia, dysarthria, and dysphagia ( now tolerating a normal diet). Hyperlipidemia Hypertension Paroxysmal atrial fibrillation Status post cardioversion on 02/07/2020. On apixaban for stroke prophylaxis. Systolic congestive heart failure Last EF was 30-35%. Type 2 diabetes mellitus Hemoglobin A1c was 6.4% on 02/03/2020. Surgical History Surgical History (Updated 03/09/20 @ 21:13 by Oralia Vance PA-C) History of cholecystectomy (~1993) History of eye surgery (~1967) History of left hip replacement (~2015) History of tonsillectomy Family History Family History Father Acute myocardial infarction Cerebrovascular accident Mother Chronic a-fib Other Unknown family medical history Social History Social History (Updated 03/09/20 @ 21:14 by Oralia Vance PA-C) Social History: Prior to his stroke he was living in his own home in [place]. He is currently undergoing rehab at [facility] in [place]. He never and has no children. He is a lifelong nonsmoker. Prior to his stroke he drank either a beer or a mixed drink most evenings. No illicit substance use. Previously worked at a [employer]. He designates his father, Nura Ross, as his surrogate decision maker. DNR paperwork accompanies him. Spiritual care concerns: No Meds Home Medications and Allergies Home Medications Medication Instructions Recorded Confirmed Type atorvastatin 40 mg PO HS 01/31/20 03/09/20 History furosemide 40 mg PO DAILY 01/31/20 03/09/20 History tamsulosin 0.8 mg PO HS 01/31/20 03/09/20 History apixaban [Alicia
[2020-03-09] MEDS: APIXABAN 5 MG TABLET PO (22:46)
[2020-03-09] MEDS: METOPROLOL TARTRATE 50 MG TAB PO (22:47)
[2020-03-09] MEDS: TAMSULOSIN HCL 0.4 MG CAPSULE 0.8 MG PO (22:47)
[2020-03-09 22:56] LABS: Glucose Point of Care 104 (65-105)
[2020-03-10] VITALS (14 sets, daily range): BP systolic 91–107; BP diastolic 46–66; PULSE 61–98; RESP 16–22; TEMP 36.1–36.6; O2SAT 94–99
[2020-03-10 05:30] LABS: Basophils Absolute Auto 0.1 K/mm3 (0.0-0.1); Basophils Percent Auto 0.3 % (0.2-1.2); Eosinophils Absolute Auto 0.2 K/mm3 (0-0.3); Hematocrit 36.8 % (42.0-52.0); Hemoglobin 11.4 g/dL (14.0-18.0); Immature Granulocyte Absolute 0.14 K/mm3 (0.00-0.031); Immature Granulocyte Percent A 0.7 % (0-0.5); Immature Platelet Fraction Pct 9.2 % (0.9-11.2); Lymphocytes Absolute Auto 1.64 K/mm3 (0.9-3.2); Lymphocytes Percent Auto 8.4 % (18.3-44.2); Mean Corpuscular Hemoglobin 22.6 pg (26-34); Mean Platelet Volume 11.9 fl (7.4-10.4); Monocytes Absolute Auto 1.4 K/mm3 (0.1-0.6); Monocytes Percent Auto 7.1 % (2.6-8.5); Neutrophils Absolute Auto 16.1 K/mm3 (1.3-6.7); Neutrophils Percent Auto 82.5 % (45.5-73.1); Platelet Count Result 218 k/mm3 (150-375); Red Blood Count 5.04 M/mm3 (4.6-6.20); Red Cell Distribution Width 19.6 % (11.5-14.5); White Blood Count 19.5 K/mm3 (4.5-10.0)
[2020-03-10 05:41] LABS: Alanine Aminotransferase 170 U/L (4-50); Albumin Level 3.2 g/dL (3.5-5.1); Alkaline Phosphatase 185 U/L (38-126); Anion Gap 8 mmol/L (8-16); Aspartate Amino Transferase 55 U/L (17-59); Bilirubin,Total 0.7 mg/dL (0.2-1.3); Blood Urea Nitrogen 11 mg/dL (9-20); Calcium 8.7 mg/dL (8.4-10.2); Carbon Dioxide 30 mmol/L (22-30); Chloride 93 mmol/L (98-107); Estimated CRCL calculation 97 ml/min; Estimated Glomerular Filt Rate > 60; Glucose 92 mg/dL (75-110); Magnesium 1.7 mg/dL (1.6-2.3); Potassium 3.1 mmol/L (3.4-5.0); Sodium 131 mmol/L (137-145)
[2020-03-10] MEDS: APIXABAN 5 MG TABLET PO ×2 (08:00→21:15)
[2020-03-10] MEDS: modafiniL 100 MG TABLET PO (08:00)
[2020-03-10] MEDS: PANTOPRAZOLE 40 MG TABLET PO (08:03)
[2020-03-10] MEDS: METOPROLOL TARTRATE 50 MG TAB PO ×2 (08:03→21:16)
[2020-03-10] MEDS: POTASSIUM CHLORIDE 20 MEQ TABLET 40 MEQ PO (08:05)
[2020-03-10 08:22] LABS: Glucose Point of Care 96 (65-105)
--- NOTE | 2020-03-10 09:13 | PM.IMPN ---
Progress Note: A&P Assessment and Plan (1) Severe sepsis: Code(s): A41.9 - Sepsis, unspecified organism; R65.20 - Severe sepsis without septic shock Status: Acute Assessment and Plan: Supported by fever, tachycardia, tachypnea, leukocytosis, and elevated lactic acid level. Blood pressures are a bit soft this morning, although patient asymptomatic. Will hold on IV fluid rehydration. Blood in urine cultures have been obtained and are pending. Continue treatment for complicated UTI. See below. (2) Complicated urinary tract infection: Code(s): N39.0 - Urinary tract infection, site not specified Status: Acute Assessment and Plan: He was started on Bactrim as an outpatient, which is not the best choice given his hepatic impairment. As he has an indwelling Beck catheter, will continue cefepime, pending culture. Monitor for improvement Tailor antibiotics to culture (3) Elevated LFTs: Code(s): R79.89 - Other specified abnormal findings of blood chemistry Status: Acute Assessment and Plan: An ongoing issue since his recent hospitalization, with continued improvement. No need for further investigation, which was done with recent hospitalization. (4) Paroxysmal atrial fibrillation: Code(s): I48.0 - Paroxysmal atrial fibrillation Status: Acute Assessment and Plan: He is in a sinus rhythm with occasional PVCs on telemetry. Asymptomatic Continue metoprolol and apixaban. (5) Type 2 diabetes mellitus: Code(s): E11.9 - Type 2 diabetes mellitus without complications Status: Acute Assessment and Plan: His diabetes is very well controlled with a recent hemoglobin A1c of 6.3. Hold oral hypoglycemics Accuchecks ACHS, hypoglycemia protocol, correctional insulin, diabetic diet (6) Hypertension: Code(s): I10 - Essential (primary) hypertension Status: Chronic Assessment and Plan: Blood pressures were reviewed and are a bit soft this morning Will hold Lasix and Lisinopril for now; resume when appropriate Continue metoprolol Monitor (7) Lesion of lower extremity: Code(s): L98.9 - Disorder of the skin and subcutaneous tissue, unspecified Status: Acute Assessment and Plan: Multiple lesions on Left lower extremity digits as detailed above. Do no have signs of acute infection. Palpable pulses. 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 Patient states he feels okay today. He notes discomfort in his Beck catheter. He still has some chills. He denies current chest pain but notes he has some occasional, dull left sided chest pain that does not radiate or associated with movement of upper extremities or exertion. He has no other associated symptoms with his chest pain such as palpitations, sweats, or nausea. He noted some nausea this morning after eating breakfast, but has since resolved. He also notes left toe pain in all toes and some lesions on the tips of his t
[2020-03-10] MEDS: POTASSIUM CHLORIDE 20 MEQ PACKET (FOR LIQUID) PO (10:13)
[2020-03-10 11:28] LABS: Glucose Point of Care 123 (65-105)
[2020-03-10 16:10] LABS: Glucose Point of Care 114 (65-105)
[2020-03-10] MEDS: TAMSULOSIN HCL 0.4 MG CAPSULE 0.8 MG PO (21:15)
[2020-03-10 21:40] LABS: Glucose Point of Care 102 (65-105)
[2020-03-11] VITALS (9 sets, daily range): BP systolic 93–113; BP diastolic 57–59; PULSE 62–100; RESP 18–20; TEMP 36.3–36.7; O2SAT 95–100
[2020-03-11 04:57] LABS: Basophils Percent Auto 0.3 % (0.2-1.2); Eosinophils Absolute Auto 0.2 K/mm3 (0-0.3); Eosinophils Percent Auto 1.2 % (0-4.4); Hematocrit 37.1 % (42.0-52.0); Hemoglobin 11.5 g/dL (14.0-18.0); Immature Granulocyte Absolute 0.14 K/mm3 (0.00-0.031); Immature Granulocyte Percent A 1.1 % (0-0.5); Lymphocytes Absolute Auto 1.14 K/mm3 (0.9-3.2); Lymphocytes Percent Auto 9.1 % (18.3-44.2); Mean Corpuscular Hemoglobin 22.2 pg (26-34); Mean Corpuscular Volume 71.8 fl (80-100); Mean Platelet Volume 10.9 fl (7.4-10.4); Monocytes Absolute Auto 0.9 K/mm3 (0.1-0.6); Monocytes Percent Auto 7.5 % (2.6-8.5); Neutrophils Absolute Auto 10.2 K/mm3 (1.3-6.7); Neutrophils Percent Auto 80.8 % (45.5-73.1); Platelet Count Result 215 k/mm3 (150-375); Red Blood Count 5.17 M/mm3 (4.6-6.20); Red Cell Distribution Width 19.5 % (11.5-14.5); White Blood Count 12.6 K/mm3 (4.5-10.0)
[2020-03-11 05:13] LABS: Alanine Aminotransferase 140 U/L (4-50); Albumin Level 3.2 g/dL (3.5-5.1); Alkaline Phosphatase 183 U/L (38-126); Anion Gap 7 mmol/L (8-16); Aspartate Amino Transferase 46 U/L (17-59); Bilirubin,Total 0.6 mg/dL (0.2-1.3); Blood Urea Nitrogen 8 mg/dL (9-20); Calcium 8.9 mg/dL (8.4-10.2); Carbon Dioxide 28 mmol/L (22-30); Chloride 95 mmol/L (98-107); Estimated CRCL calculation 132 ml/min; Estimated Glomerular Filt Rate > 60; Glucose 104 mg/dL (75-110); Magnesium 1.7 mg/dL (1.6-2.3); Potassium 3.6 mmol/L (3.4-5.0); Sodium 130 mmol/L (137-145)
[2020-03-11] MEDS: SODIUM CHLORIDE 0.9% IV 1,000 ML 75 ML IV CONT (08:05)
[2020-03-11] MEDS: APIXABAN 5 MG TABLET PO ×2 (08:07→20:37)
[2020-03-11] MEDS: POTASSIUM CHLORIDE 20 MEQ PACKET (FOR LIQUID) PO (08:07)
[2020-03-11] MEDS: METOPROLOL TARTRATE 50 MG TAB PO ×2 (08:07→20:37)
[2020-03-11] MEDS: PANTOPRAZOLE 40 MG TABLET PO (08:07)
[2020-03-11] MEDS: modafiniL 100 MG TABLET PO (08:10)
[2020-03-11 08:47] LABS: Glucose Point of Care 127 (65-105)
--- NOTE | 2020-03-11 09:26 | PM.IMPN ---
Progress Note: A&P Assessment and Plan (1) Severe sepsis: Code(s): A41.9 - Sepsis, unspecified organism; R65.20 - Severe sepsis without septic shock Status: Acute Assessment and Plan: Supported by fever, tachycardia, tachypnea, leukocytosis, and elevated lactic acid level. Blood pressures are a bit soft this again this morning, although patient asymptomatic. Likely UTI as source. BCx NGTD x 2. UCx growing e. coli and proteus mirabilis; sensitivities pending Will give light IV fluids today Continue treatment for complicated UTI. See below. (2) Complicated urinary tract infection: Code(s): N39.0 - Urinary tract infection, site not specified Status: Acute Assessment and Plan: He was started on Bactrim as an outpatient, which is not the best choice given his hepatic impairment. As he has an indwelling Beck catheter, will continue cefepime, pending culture sensitivities Monitor for improvement Tailor antibiotics to culture (3) Elevated LFTs: Code(s): R79.89 - Other specified abnormal findings of blood chemistry Status: Acute Assessment and Plan: An ongoing issue since his recent hospitalization, with continued improvement. No need for further investigation, which was done with recent hospitalization. (4) Paroxysmal atrial fibrillation: Code(s): I48.0 - Paroxysmal atrial fibrillation Status: Acute Assessment and Plan: He is in a sinus rhythm with occasional PVCs, PACs on telemetry; 2 runs of Vtach yesterday afternoon and this morning. Asymptomatic Continue metoprolol and apixaban. Will replace electrolytes as appropriate Monitor (5) Type 2 diabetes mellitus: Code(s): E11.9 - Type 2 diabetes mellitus without complications Status: Acute Assessment and Plan: His diabetes is very well controlled with a recent hemoglobin A1c of 6.3. Hold oral hypoglycemics Accuchecks ACHS, hypoglycemia protocol, correctional insulin, diabetic diet (6) Hypertension: Code(s): I10 - Essential (primary) hypertension Status: Chronic Assessment and Plan: Blood pressures were reviewed and are a bit soft this morning Will hold Lasix and Lisinopril for now; resume when appropriate Continue metoprolol Monitor (7) Lesion of lower extremity: Code(s): L98.9 - Disorder of the skin and subcutaneous tissue, unspecified Status: Acute Assessment and Plan: Multiple lesions on Left lower extremity digits as detailed above. No signs of acute infection. Palpable pulses. 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 Patient states he feels okay today; slightly better than yesterday. He still notes discomfort in his Ebck catheter. He still has some chills overnight. No other complaints at the moment. Denies subjective fevers, headaches, dizziness, lightheadedness, changes in v/h, current cp/palpitations, sob/cough, current n/v/d/c, abd pain, changes in BMs, calf pain/swelling. Review of Systems Review of Systems:
[2020-03-11] MEDS: MAGNESIUM SULF 1 GM/D5W 100 ML 1 GM/100 ML BAG IVPB (10:21)
[2020-03-11] MEDS: POTASSIUM CHLORIDE 20 MEQ TABLET PO (10:23)
[2020-03-11 11:37] LABS: Glucose Point of Care 151 (65-105)
[2020-03-11 17:56] LABS: Glucose Point of Care 110 (65-105)
[2020-03-11 20:29] LABS: Glucose Point of Care 153 (65-105)
[2020-03-11] MEDS: TAMSULOSIN HCL 0.4 MG CAPSULE 0.8 MG PO (20:37)
[2020-03-12] VITALS: PULSE 56
[2020-03-12] MEDS: SODIUM CHLORIDE 0.9% IV 1,000 ML 75 ML IV CONT ×2 (00:18→15:33)
[2020-03-12 04:00] VITALS: BP 116/80; PULSE 65; PULSE 91; RESP 20; TEMP 36.5; O2SAT 100
[2020-03-12 05:29] LABS: Basophils Absolute Auto 0.1 K/mm3 (0.0-0.1); Basophils Percent Auto 0.5 % (0.2-1.2); Eosinophils Absolute Auto 0.2 K/mm3 (0-0.3); Hematocrit 37.9 % (42.0-52.0); Hemoglobin 11.6 g/dL (14.0-18.0); Immature Granulocyte Absolute 0.15 K/mm3 (0.00-0.031); Immature Granulocyte Percent A 1.2 % (0-0.5); Lymphocytes Absolute Auto 1.26 K/mm3 (0.9-3.2); Lymphocytes Percent Auto 10.5 % (18.3-44.2); Mean Corpuscular HGB Conc 30.6 g/dl (32-36); Mean Corpuscular Hemoglobin 22.2 pg (26-34); Mean Corpuscular Volume 72.5 fl (80-100); Mean Platelet Volume 11.3 fl (7.4-10.4); Monocytes Absolute Auto 0.9 K/mm3 (0.1-0.6); Monocytes Percent Auto 7.7 % (2.6-8.5); Neutrophils Absolute Auto 9.4 K/mm3 (1.3-6.7); Neutrophils Percent Auto 78.1 % (45.5-73.1); Platelet Count Result 230 k/mm3 (150-375); Red Blood Count 5.23 M/mm3 (4.6-6.20); Red Cell Distribution Width 19.6 % (11.5-14.5)
[2020-03-12 05:59] LABS: Alanine Aminotransferase 134 U/L (4-50); Albumin Level 3.2 g/dL (3.5-5.1); Alkaline Phosphatase 167 U/L (38-126); Anion Gap 5 mmol/L (8-16); Aspartate Amino Transferase 55 U/L (17-59); Bilirubin,Total 0.7 mg/dL (0.2-1.3); Blood Urea Nitrogen 8 mg/dL (9-20); Calcium 8.3 mg/dL (8.4-10.2); Carbon Dioxide 28 mmol/L (22-30); Chloride 97 mmol/L (98-107); Estimated CRCL calculation 160 ml/min; Estimated Glomerular Filt Rate > 60; Glucose 109 mg/dL (75-110); Sodium 130 mmol/L (137-145)
[2020-03-12 08:00] VITALS: PULSE 62
[2020-03-12] MEDS: METOPROLOL TARTRATE 50 MG TAB PO (08:01)
[2020-03-12] MEDS: APIXABAN 5 MG TABLET PO ×2 (08:01→20:53)
[2020-03-12] MEDS: PANTOPRAZOLE 40 MG TABLET PO (08:01)
[2020-03-12] MEDS: POTASSIUM CHLORIDE 20 MEQ PACKET (FOR LIQUID) PO (08:01)
[2020-03-12] MEDS: modafiniL 100 MG TABLET PO (08:02)
--- NOTE | 2020-03-12 08:11 | PM.IMPN ---
Progress Note: A&P Assessment and Plan (1) Severe sepsis: Code(s): A41.9 - Sepsis, unspecified organism; R65.20 - Severe sepsis without septic shock Status: Acute Assessment and Plan: Supported by fever, tachycardia, tachypnea, leukocytosis, and elevated lactic acid level. Blood pressures are improved, but still a bit on lower side. Likely UTI as source. BCx NGTD x 2. UCx growing e. coli and proteus mirabilis;sensitive to Rocephin Will continue light IV fluids again today Continue treatment for complicated UTI. See below. (2) Complicated urinary tract infection: Code(s): N39.0 - Urinary tract infection, site not specified Status: Acute Assessment and Plan: He was started on Bactrim as an outpatient, which is not the best choice given his hepatic impairment. UCx shows E. Coli and proteus mirabilis sensitive to Rocephin Will switch to Rocephin today; consider cefdinir at discharge Monitor for improvement (3) Elevated LFTs: Code(s): R79.89 - Other specified abnormal findings of blood chemistry Status: Acute Assessment and Plan: An ongoing issue since his recent hospitalization, with continued improvement. No need for further investigation, which was done with recent hospitalization. (4) Paroxysmal atrial fibrillation: Code(s): I48.0 - Paroxysmal atrial fibrillation Status: Acute Assessment and Plan: He is in a sinus rhythm with occasional PVCs, PACs on telemetry; no further signs of vtach. No chest pain. Electrolytes have improved Continue metoprolol and apixaban. 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 Hold oral hypoglycemics Accuchecks ACHS, hypoglycemia protocol, correctional insulin, diabetic diet (6) Hypertension: Code(s): I10 - Essential (primary) hypertension Status: Chronic Assessment and Plan: Blood pressures were reviewed and are a bit soft this morning Will hold Lasix and Lisinopril for now; resume when appropriate. Consider resuming lisinopril tomorrow if improved BP Continue metoprolol Monitor (7) Lesion of lower extremity: Code(s): L98.9 - Disorder of the skin and subcutaneous tissue, unspecified Status: Acute Assessment and Plan: Multiple lesions on Left lower extremity digits as detailed above. No signs of acute infection. Palpable pulses. 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 Patient states he feels tired today. He notes having a sensation of having to urinate despite having indwelling Beck. No other complaints. Denies subjective fevers/chills, headaches, dizziness, lightheadedness, changes in v/h, cp/palpitations, sob/cough, current n/v/d/c, abd pain, changes in BMs, calf pain/swelling. Review of Systems Review of Systems:
[2020-03-12 09:32] LABS: Glucose Point of Care 105 (65-105)
[2020-03-12 11:53] LABS: Glucose Point of Care 147 (65-105)
[2020-03-12 14:00] VITALS: BP 102/51; PULSE 60; RESP 16; TEMP 36.4; O2SAT 100
[2020-03-12] MEDS: TOLNAFTATE 1% POWDER 45 GM BTL 1 APPLIC TOPICAL ×2 (15:34→20:53)
[2020-03-12 20:00] VITALS: BP 106/56; PULSE 52; RESP 20; TEMP 36.6; O2SAT 99
[2020-03-12 20:50] VITALS: PULSE 52
[2020-03-12] MEDS: TAMSULOSIN HCL 0.4 MG CAPSULE 0.8 MG PO (20:53)
[2020-03-12 21:50] LABS: Glucose Point of Care 142 (65-105)
[2020-03-13 05:03] LABS: Basophils Absolute Auto 0.1 K/mm3 (0.0-0.1); Basophils Percent Auto 0.6 % (0.2-1.2); Eosinophils Absolute Auto 0.3 K/mm3 (0-0.3); Eosinophils Percent Auto 2.5 % (0-4.4); Hematocrit 37.3 % (42.0-52.0); Hemoglobin 11.3 g/dL (14.0-18.0); Immature Granulocyte Absolute 0.14 K/mm3 (0.00-0.031); Immature Granulocyte Percent A 1.3 % (0-0.5); Lymphocytes Absolute Auto 1.16 K/mm3 (0.9-3.2); Lymphocytes Percent Auto 10.9 % (18.3-44.2); Mean Corpuscular HGB Conc 30.3 g/dl (32-36); Mean Corpuscular Volume 72.7 fl (80-100); Mean Platelet Volume 10.8 fl (7.4-10.4); Monocytes Absolute Auto 0.9 K/mm3 (0.1-0.6); Monocytes Percent Auto 8.8 % (2.6-8.5); Neutrophils Absolute Auto 8.1 K/mm3 (1.3-6.7); Neutrophils Percent Auto 75.9 % (45.5-73.1); Platelet Count Result 236 k/mm3 (150-375); Red Blood Count 5.13 M/mm3 (4.6-6.20); Red Cell Distribution Width 19.6 % (11.5-14.5); White Blood Count 10.6 K/mm3 (4.5-10.0)
[2020-03-13 05:25] VITALS: BP 108/40; PULSE 96; RESP 18; TEMP 36.2; O2SAT 91
[2020-03-13 05:28] LABS: Anion Gap 7 mmol/L (8-16); Blood Urea Nitrogen 6 mg/dL (9-20); Calcium 8.6 mg/dL (8.4-10.2); Carbon Dioxide 26 mmol/L (22-30); Chloride 99 mmol/L (98-107); Estimated CRCL calculation 162 ml/min; Estimated Glomerular Filt Rate > 60; Glucose 115 mg/dL (75-110); Magnesium 1.8 mg/dL (1.6-2.3); Potassium 3.9 mmol/L (3.4-5.0); Sodium 132 mmol/L (137-145)
[2020-03-13] MEDS: SODIUM CHLORIDE 0.9% IV 1,000 ML 75 ML IV CONT ×2 (05:42→20:18)
[2020-03-13 08:19] LABS: Glucose Point of Care 156 (65-105)
[2020-03-13 09:11] VITALS: PULSE 96
[2020-03-13] MEDS: POTASSIUM CHLORIDE 20 MEQ TABLET PO (09:11)
[2020-03-13] MEDS: METOPROLOL TARTRATE 50 MG TAB PO ×2 (09:11→20:21)
[2020-03-13] MEDS: MAGNESIUM SULF 1 GM/D5W 100 ML 1 GM/100 ML BAG IVPB (09:11)
[2020-03-13] MEDS: APIXABAN 5 MG TABLET PO ×2 (09:11→20:20)
[2020-03-13] MEDS: POTASSIUM CHLORIDE 20 MEQ PACKET (FOR LIQUID) PO (09:12)
[2020-03-13] MEDS: PANTOPRAZOLE 40 MG TABLET PO (09:12)
[2020-03-13] MEDS: TOLNAFTATE 1% POWDER 45 GM BTL 1 APPLIC TOPICAL ×2 (09:12→20:21)
[2020-03-13] MEDS: modafiniL 100 MG TABLET PO (09:14)
--- NOTE | 2020-03-13 10:13 | PM.IMPN ---
Progress Note: A&P Assessment and Plan (1) Severe sepsis: Code(s): A41.9 - Sepsis, unspecified organism; R65.20 - Severe sepsis without septic shock Status: Acute Assessment and Plan: Supported by fever, tachycardia, tachypnea, leukocytosis, and elevated lactic acid level. Blood pressures are improved since admission, but still a bit on lower side. Likely UTI as source. BCx NGTD x 2. UCx growing e. coli and proteus mirabilis; sensitive to Rocephin. WBC down to 10.6k today Will continue light IV fluids again today Continue treatment for complicated UTI. See below. (2) Complicated urinary tract infection: Code(s): N39.0 - Urinary tract infection, site not specified Status: Acute Assessment and Plan: He was started on Bactrim as an outpatient, which is not the best choice given his hepatic impairment. UCx shows E. Coli and proteus mirabilis sensitive to Rocephin Will continue Rocephin; consider cefdinir at discharge Monitor for improvement (3) Elevated LFTs: Code(s): R79.89 - Other specified abnormal findings of blood chemistry Status: Acute Assessment and Plan: An ongoing issue since his recent hospitalization, with continued improvement. No need for further investigation, which was done with recent hospitalization. (4) Paroxysmal atrial fibrillation: Code(s): I48.0 - Paroxysmal atrial fibrillation Status: Acute Assessment and Plan: No chest pain/palpitations. K3.9, mag 1.8; replaced Continue metoprolol and apixaban. Will replace electrolytes as appropriate. Attempt to keep K above 4 and mag above 2 Monitor (5) Type 2 diabetes mellitus: Code(s): E11.9 - Type 2 diabetes mellitus without complications Status: Acute Assessment and Plan: His diabetes is very well controlled with a recent hemoglobin A1c of 6.3. Hold oral hypoglycemics Accuchecks ACHS, hypoglycemia protocol, correctional insulin, diabetic diet (6) Hypertension: Code(s): I10 - Essential (primary) hypertension Status: Chronic Assessment and Plan: Blood pressures were reviewed and are still a bit soft this morning Will hold Lasix and Lisinopril for now; resume when appropriate. Consider resuming lisinopril tomorrow if improved BP Continue metoprolol Monitor (7) Lesion of lower extremity: Code(s): L98.9 - Disorder of the skin and subcutaneous tissue, unspecified Status: Acute Assessment and Plan: Multiple lesions on Left lower extremity digits as detailed above. No signs of acute infection. Palpable pulses. 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 Patient states he feels tired today again today because of being woken up so often. He is sleeping but easily woke with lightly tapping on right foot. No complaints for me today. Wishes to continue sleeping. Denies subjective fevers/chills, headaches, dizziness, lightheadedness, changes in v/h, cp/palpitations, sob/cough, current n/v/d/c, abd pain, changes in BMs,
[2020-03-13 12:02] LABS: Glucose Point of Care 132 (65-105)
[2020-03-13 14:00] VITALS: BP 173/62; PULSE 76; RESP 14; TEMP 36.8; O2SAT 99
[2020-03-13 14:05] LABS: SARS-CoV-2 RNA PCR Negative
[2020-03-13] MEDS: ACETAMINOPHEN 325 MG TABLET 650 MG PO (14:54)
[2020-03-13 16:36] LABS: Glucose Point of Care 117 (65-105)
[2020-03-13] MEDS: TAMSULOSIN HCL 0.4 MG CAPSULE 0.8 MG PO (20:20)
[2020-03-13 20:21] VITALS: PULSE 68
[2020-03-13 21:47] LABS: Glucose Point of Care 130 (65-105)
[2020-03-13 22:00] VITALS: BP 106/57; PULSE 68; RESP 18; TEMP 36.2; O2SAT 97
[2020-03-14 06:00] VITALS: BP 112/62; PULSE 57; RESP 18; TEMP 36.7; O2SAT 97
[2020-03-14 06:07] LABS: Basophils Absolute Auto 0.1 K/mm3 (0.0-0.1); Basophils Percent Auto 0.5 % (0.2-1.2); Eosinophils Absolute Auto 0.4 K/mm3 (0-0.3); Eosinophils Percent Auto 3.7 % (0-4.4); Hematocrit 38.3 % (42.0-52.0); Hemoglobin 11.6 g/dL (14.0-18.0); Immature Granulocyte Absolute 0.14 K/mm3 (0.00-0.031); Immature Granulocyte Percent A 1.3 % (0-0.5); Lymphocytes Absolute Auto 1.42 K/mm3 (0.9-3.2); Lymphocytes Percent Auto 13.3 % (18.3-44.2); Mean Corpuscular HGB Conc 30.3 g/dl (32-36); Mean Corpuscular Hemoglobin 22.2 pg (26-34); Mean Corpuscular Volume 73.2 fl (80-100); Mean Platelet Volume 10.2 fl (7.4-10.4); Monocytes Absolute Auto 0.9 K/mm3 (0.1-0.6); Monocytes Percent Auto 8.4 % (2.6-8.5); Neutrophils Absolute Auto 7.8 K/mm3 (1.3-6.7); Neutrophils Percent Auto 72.8 % (45.5-73.1); Platelet Count Result 234 k/mm3 (150-375); Red Blood Count 5.23 M/mm3 (4.6-6.20); Red Cell Distribution Width 19.9 % (11.5-14.5); White Blood Count 10.7 K/mm3 (4.5-10.0)
[2020-03-14 06:59] LABS: Anion Gap 6 mmol/L (8-16); Blood Urea Nitrogen 5 mg/dL (9-20); Calcium 8.7 mg/dL (8.4-10.2); Carbon Dioxide 28 mmol/L (22-30); Chloride 100 mmol/L (98-107); Estimated CRCL calculation 162 ml/min; Estimated Glomerular Filt Rate > 60; Glucose 107 mg/dL (75-110); Potassium 3.6 mmol/L (3.4-5.0); Sodium 134 mmol/L (137-145)
[2020-03-14] MEDS: APIXABAN 5 MG TABLET PO (08:28)
[2020-03-14] MEDS: PANTOPRAZOLE 40 MG TABLET PO (08:28)
[2020-03-14] MEDS: POTASSIUM CHLORIDE 20 MEQ PACKET (FOR LIQUID) PO (08:28)
[2020-03-14 08:29] VITALS: PULSE 60
[2020-03-14] MEDS: METOPROLOL TARTRATE 50 MG TAB PO (08:29)
[2020-03-14] MEDS: TOLNAFTATE 1% POWDER 45 GM BTL 1 APPLIC TOPICAL (08:30)
[2020-03-14] MEDS: modafiniL 100 MG TABLET PO (08:40)
[2020-03-14] MEDS: POTASSIUM CHLORIDE 20 MEQ TABLET 40 MEQ PO (08:40)
--- NOTE | 2020-03-14 08:49 | P.DS_ITS ---
DS: Admitting Diagnosis Admitting Diagnosis Admitting Diagnosis: Severe sepsis/CAUTI <Duarte Goodwin PA-C - Last Filed: 03/15/20 15:52> DS: Discharge Diagnosis Discharge Diagnosis (1) Severe sepsis: Code(s): A41.9 - Sepsis, unspecified organism; R65.20 - Severe sepsis without septic shock <Duarte Goodwin PA-C - Last Filed: 03/15/20 15:52> Status: Acute <FRANKY Cedillo Last Filed: 03/15/20 15:52> Assessment and Plan: Supported by fever, tachycardia, tachypnea, leukocytosis, and elevated lactic acid level. Blood pressures are improved since admission, but still a bit on lower side. Likely UTI as source. BCx NGTD x 2. UCx growing e. coli and proteus mirabilis; sensitive to Rocephin. WBC stable at 10.7k today * Will d/c back to [facility] today * Continue treatment for complicated UTI. See below. <Duarte Goodwin PA-C - Last Filed: 03/15/20 15:52> (2) Complicated urinary tract infection: Code(s): N39.0 - Urinary tract infection, site not specified <FRANKY Cedillo Last Filed: 03/15/20 15:52> Status: Acute <FRANKY Cedillo Last Filed: 03/15/20 15:52> Assessment and Plan: He was started on Bactrim as an outpatient, which is not the best choice given his hepatic impairment. UCx shows E. Coli and proteus mirabilis sensitive to Rocephin * Rocephin x 6 days; will discharge on cefdinir to complete 14 days total * f/u with PCP next week * CBC next week as well <Duarte Goodwin, PA-C - Last Filed: 03/15/20 15:52> (3) Elevated LFTs: Code(s): R79.89 - Other specified abnormal findings of blood chemistry <Duarte MelissaPratik Goodwin PA-C - Last Filed: 03/15/20 15:52> Status: Acute <Duarte Read FRANKY Goodwin - Last Filed: 03/15/20 15:52> Assessment and Plan: An ongoing issue since his recent hospitalization, with continued improvement. * No need for further investigation, which was done with recent hospitalization. <Duarte MelissaPratik Goodwin PA-C - Last Filed: 03/15/20 15:52> (4) Paroxysmal atrial fibrillation: Code(s): I48.0 - Paroxysmal atrial fibrillation <Duarte Goodwin PA-C - Last Filed: 03/15/20 15:52> Status: Acute <Duarte MelissaPratik Goodwin PA-C - Last Filed: 03/15/20 15:52> Assessment and Plan: No chest pain/palpitations. K3.6, mag 2.0; replaced K today * Continue metoprolol and apixaban. * BMP in 1 week to monitor electrolytes <Duarte MelissaPratik Goodwin PA-C - Last Filed: 03/15/20 15:52> (5) Type 2 diabetes mellitus: Code(s): E11.9 - Type 2 diabetes mellitus without complications <Duarte Goodwin PA-C - Last Filed: 03/15/20 15:52> Status: Acute <Duarte MelissaPratik Goodwin PA-C Last Filed: 03/15/20 15:52> Assessment and Plan: His diabetes is very well controlled with a recent hemoglobin A1c of 6.3. * Resume oral hypoglycemics at discharge * Accuchecks ACHS, hypoglycemia protocol, correctional insulin, diabetic diet during stay <Duarte Goodwin PA-C - Last Filed: 03/15/20 15:52> (6) Hypertension: Code(s): I10 - Essential (primary) hypertension <FRANKY Cedillo Last Filed: 03/15/20 15:52> Status: Chronic <FRANKY Cedillo Last Filed: 03/15/20 15:52> Assessment and Plan: Blood pressures were reviewed and are still a bit soft this morning *
--- NOTE | 2020-03-14 08:49 | PM.DS ---
DS: Admitting Diagnosis Admitting Diagnosis Admitting Diagnosis: Severe sepsis/CAUTI <Duarte Goodwin PA-C - Last Filed: 03/15/20 15:52> DS: Discharge Diagnosis Discharge Diagnosis (1) Severe sepsis: Code(s): A41.9 - Sepsis, unspecified organism; R65.20 - Severe sepsis without septic shock <FRANKY Cedillo Last Filed: 03/15/20 15:52> Status: Acute <FRANKY Cedillo Last Filed: 03/15/20 15:52> Assessment and Plan: Supported by fever, tachycardia, tachypnea, leukocytosis, and elevated lactic acid level. Blood pressures are improved since admission, but still a bit on lower side. Likely UTI as source. BCx NGTD x 2. UCx growing e. coli and proteus mirabilis; sensitive to Rocephin. WBC stable at 10.7k today Will d/c back to [facility] today Continue treatment for complicated UTI. See below. <Duarte Goodwin PA-C - Last Filed: 03/15/20 15:52> (2) Complicated urinary tract infection: Code(s): N39.0 - Urinary tract infection, site not specified <FRANKY Cedillo Last Filed: 03/15/20 15:52> Status: Acute <FRANKY Cedillo Last Filed: 03/15/20 15:52> Assessment and Plan: He was started on Bactrim as an outpatient, which is not the best choice given his hepatic impairment. UCx shows E. Coli and proteus mirabilis sensitive to Rocephin Rocephin x 6 days; will discharge on cefdinir to complete 14 days total f/u with PCP next week CBC next week as well <FRANKY Cedillo Last Filed: 03/15/20 15:52> (3) Elevated LFTs: Code(s): R79.89 - Other specified abnormal findings of blood chemistry <Duarte Goodwin PA-C - Last Filed: 03/15/20 15:52> Status: Acute <Duarte MelissaPratik Goodwin PA-C - Last Filed: 03/15/20 15:52> Assessment and Plan: An ongoing issue since his recent hospitalization, with continued improvement. No need for further investigation, which was done with recent hospitalization. <Duarte Goodwin PA-C - Last Filed: 03/15/20 15:52> (4) Paroxysmal atrial fibrillation: Code(s): I48.0 - Paroxysmal atrial fibrillation <Duarte Goodwin PA-C - Last Filed: 03/15/20 15:52> Status: Acute <Duarte Goodwin PA-C - Last Filed: 03/15/20 15:52> Assessment and Plan: No chest pain/palpitations. K3.6, mag 2.0; replaced K today Continue metoprolol and apixaban. BMP in 1 week to monitor electrolytes <Duarte Goodwin PA-C - Last Filed: 03/15/20 15:52> (5) Type 2 diabetes mellitus: Code(s): E11.9 - Type 2 diabetes mellitus without complications <Duarte Goodwin PA-C - Last Filed: 03/15/20 15:52> Status: Acute <Duarte Goodwin PA-C Last Filed: 03/15/20 15:52> Assessment and Plan: His diabetes is very well controlled with a recent hemoglobin A1c of 6.3. Resume oral hypoglycemics at discharge Accuchecks ACHS, hypoglycemia protocol, correctional insulin, diabetic diet during stay <FRANKY Cedillo Last Filed: 03/15/20 15:52> (6) Hypertension: Code(s): I10 - Essential (primary) hypertension <FRANKY Cedillo Last Filed: 03/15/20 15:52> Status: Chronic <FRANKY Cedillo Last Filed: 03/15/20 15:52> Assessment and Plan: Blood pressures were reviewed and are still a bit soft this morning Will resume lisinopril at discharge; hold lasix for 2-3 days and reevaluate to see if BP has improved to resume Continue metoprolol F/u with Cardiology as he was hospitalized during his scheduled f/u appointment <FRANKY Cedillo Last Filed: 03/15/20 15:52> (7) Lesion of lower extremity: Code(
[2020-03-14 10:14] LABS: Glucose Point of Care 115 (65-105)
--- NOTE | 2020-03-14 10:31 | PCOTNOTE ---
Patient declined treatment x1 due to breakfast; anticipated discharge to SNF this pm.
[2020-03-14 13:34] LABS: Glucose Point of Care 147 (65-105)
== END 2020-03-14 15:34 | DRG 698 ==
LOC: ANHED 17:34 → ANH2MED 20:24
PROVIDERS: Family Medicine; Physician Assistant; Admitting Provider Internal Medicine; Emergency Provider Emergency Medicine; PCP Family Medicine; Visit Provider Hospitalist
DX: T83.511A Infection and inflammatory reaction due to indwelling urethral catheter, initial encounter (principal); A41.9 Sepsis, unspecified organism; R65.20 Severe sepsis without septic shock; I50.22 Chronic systolic (congestive) heart failure; I69.354 Hemiplegia and hemiparesis following cerebral infarction affecting left non-dominant side; N39.0 Urinary tract infection, site not specified; B96.20 Unspecified Escherichia coli [E. coli] as the cause of diseases classified elsewhere; B96.4 Proteus (mirabilis) (morganii) as the cause of diseases classified elsewhere; Z20.828 Contact with and (suspected) exposure to other viral communicable diseases; Z23 Encounter for immunization; R79.89 Other specified abnormal findings of blood chemistry; L98.9 Disorder of the skin and subcutaneous tissue, unspecified; I69.322 Dysarthria following cerebral infarction; E11.9 Type 2 diabetes mellitus without complications; N40.0 Benign prostatic hyperplasia without lower urinary tract symptoms; I48.0 Paroxysmal atrial fibrillation; I11.0 Hypertensive heart disease with heart failure; E78.5 Hyperlipidemia, unspecified; Z66 Do not resuscitate; Z96.642 Presence of left artificial hip joint; Z79.01 Long term (current) use of anticoagulants; Z79.4 Long term (current) use of insulin; Z79.899 Other long term (current) drug therapy; Z98.890 Other specified postprocedural states
CPT/HCPCS: 36415; 71045; 80048; 80053; 81001; 83605; 83735; 84484; 85025; 85055; 85610; 85730; 86140; 87040; 87077; 87086; 87088; 87186; 87635; 90471; 90686; 93005; 96365; 96375; 97110; 97161; 97166; 97530; 97535; 99291; A9270; C9803; G0008; J0131; J0692; J0696; J3475; J7030; U0003